=== PATIENT | female | born 1980 | race Caucasian/White ===

== ENCOUNTER 2016-10-19 19:58 | Emergency (ER) | payer MEDICARE, OTHER ==
[~2016-10-19] VITALS: Ht 175.3 cm; Wt 145.0 kg
[2016-10-19 20:00] VITALS: Ht 175.3 cm; Wt 145.0 kg
[2016-10-19 20:47] LABS: URINE BLOOD (Dip) POC Trace-intact (NEGATIVE)
[2016-10-19] MEDS ORDERED: DIAZEPAM 5 MG TAB PO ONE (21:30)
[2016-10-19] MEDS ORDERED: ACETAMINOPHEN 325 MG TAB PO ONE (21:30)
[2016-10-19 21:43] LABS: ADD SCAN DIFF NO
[2016-10-19 21:46] LABS: BASOPHILS % 0.6 % (0.0-2.0); EOSINOPHILS # 0.2 10^3/ul (0.0-0.5); EOSINOPHILS % 2.4 % (0.0-7.0); HEMATOCRIT 43.2 % (37.0-47.0); HEMOGLOBIN 14.1 g/dl (12.0-16.0); LYMPHOCYTES # 2.9 10^3/ul (0.8-2.9); LYMPHOCYTES % 42.4 % (15.0-51.0); MEAN CORPUSCULAR HGB CONC 32.6 g/dl (32.0-37.0); MEAN CORPUSCULAR VOLUME 94.9 fl (82.0-101.0); MEAN PLATELET VOLUME 10.7 fl (7.4-10.4); MONOCYTE # 0.6 10^3/ul (0.3-0.9); MONOCYTES % 8.6 % (0.0-11.0); NEUTROPHIL # 3.1 10^3/ul (1.6-7.5); NEUTROPHILS % 45.7 % (39.0-77.0); PLATELET COUNT 253 10^3/UL (140-415); RED BLOOD COUNT 4.55 10^6/ul (4.20-5.40); RED CELL DISTRIBUTION WIDTH 13.2 % (11.5-14.5); WHITE BLOOD COUNT 6.7 10^3/ul (4.8-10.8)
[2016-10-19] MEDS ORDERED: KETOROLAC 15 MG INJ IV STA (23:00)
--- NOTE | 2016-10-19 23:00 | ERD ---
ER Documentation Chief Complaint Date/Time DATE: 10/19/16 TIME: 22:47 Chief Complaint lower back pain sp fall today, also difuse lower abdominal pain for 2 days HPI This 35-year-old female reports mechanical slip and fall at home without loss of consciousness. Patient states she landed on her tailbone and has had excruciating pain in her low back ever since. Patient states pain is 10 out of 10 on pain scale, reports no position of comfort, and has difficulty lying supine, sitting, standing, and walking. Patient currently is side lying on gurney for assessment. Patient denies any numbness or tingling radiating down her leg, denies any alteration in bowel or bladder. States she took a Motrin prior to arrival in emergency department with little relief of symptoms. Patient has secondary complaint of low abdominal pain, pain is described as sharp, no pelvic, history of diverticulitis. Patient follows a low residue diet , states she does not eat rice or tomatoes. Reports hysterectomy in 2016 for cervical cancer. Denies any hematuria, blood in stool, constipation, diarrhea, nausea vomiting fever or chills. ROS All systems reviewed and are negative except as per history of present illness. Allergies Allergies: Coded Allergies: aspirin (Verified Allergy, Unknown, 10/19/16) divalproex sodium (Verified Allergy, Unknown, 10/19/16) PMhx/Soc History of Surgery: Yes (hysterectomy) Anesthesia Reaction: No Hx Neurological Disorder: No Hx Respiratory Disorders: No Hx Cardiac Disorders: No Hx Psychiatric Problems: No Hx Miscellaneous Medical Probl: Yes (diverticulitis) Hx Alcohol Use: No Hx Substance Use: No Hx Tobacco Use: No Smoking Status: Never smoker Physical Exam Vitals Vital Signs Date Time Temp Pulse Resp B/P Pulse Ox O2 Delivery O2 Flow Rate FiO2 10/19/16 20:00 97.8 120 18 142/68 96 Vitals stable, triage notes reviewed Physical Exam Const: Morbidly obese female, obvious discomfort. No acute distress Head: Atraumatic Eyes: Normal Conjunctiva, PERRLA, EOMI ENT: Neck: Full range of motion. Resp: Chest rises and falls symmetrically, clear to auscultation bilaterally, no respiratory distress Cardio: Abd: Soft, obese, no pelvic tenderness, no CVA tenderness Skin: Back: No midline or flank tenderness, straight leg raise is positive bilaterally at 20 Ext: Neur: Awake and alert Psych: Normal Mood and Affect Result Diagram: 10/19/162104 Results 24 hrs Laboratory Tests Test 10/19/16 20:50 10/19/16 21:05 Bedside Urine pH (LAB) 6.5 Bedside Urine Protein (LAB) Negative Bedside Urine Glucose (UA) Negative Bedside Urine Ketones (LAB) Negative Bedside Urine Blood Trace-intact Bedside Urine Nitrite (LAB) Negative Bedside Urine Leukocyte Esterase (L Negative White Blood Count 6.710^3/ul Red Blood Count 4.5510^6/ul Hemoglobin 14.1g/dl Hematocrit 43.2% Mean Corpuscular Volume 94.9fl Mean Corpuscular Hemoglobin 31.0pg Mean Corpuscular Hemoglobin Concent 32.6g/dl Red Cell Distribution Width 13.2% Platelet Count 88049^3/UL Mean Platelet Volume 10.7fl Neutrophils % 45.7% Lymphocytes % 42.4% Monocytes % 8.6% Eosinophils % 2.4% Basophils % 0.6% Nucleated Red Blood Cells % 0.0/100WBC Neutrophils # 3.110^3/ul Lymphocytes # 2.910^3/ul Monocytes # 0.610^3/ul Eosinophils # 0.210^3/ul Basophils # 0.010^3/ul Nucleated Red Blood Cells # 0.010^3/ul Current Medications Medications (Trade) Dose Ordered Sig/Lupe Route PRN Reason Start Time Stop Time Status Last Admin Dose Admin Diazepam (Valium) 5 mg ONCE ONCE PO 10/19/16 21:30 10/19/16 21:31 DC 10/19/16 21:19 Acetaminophen (Tylenol Tab) 650 mg ONCE ONCE PO 10/19/16 21:30 10/19/16 21:31 DC 10/19/16 21:19 Ketorolac Tromethamine (Toradol) 15 mg ONCE STAT IV 10/19/16 23:00 10/19/16 23:01 DC 10/19/16 23:07 Interpretation text CBC negative for acute infection or hemorrhage Urinalysis negative for leukocytosis or nitrates, positive for trace microscopic hematuria, this is a normal urinalysis Procedures/MDM This pleasant 35-year-old female presents to emergency department today for evaluation of back pain, tailbone pain, after mechanical trip and fall today. Patient experienced no loss of consciousness fell onto tailbone. Denies any alteration in ambulation or bowel or bladder, cauda equina is not suspected. Coccyx fracture, or bruising suspected. X-ray obtained to rule out compression fracture., Lumbar spine x-ray with the following findings; the lumbar vertebral bodies and disc spaces have normal height and anatomic alignment. No evidence of fracture or subluxation seen. There is a small anterior osteophyte at L1-2 and L3-4. No significant spondylolithiasis is seen. The partially visualized sacrum is unremarkable. The sacroiliac joints are intact. Impression; unremarkable lumbar spine. Abdominal pain with history of diverticulitis evaluated with CBC unremarkable for leukocytosis evidence of acute hemorrhage or infection. Urinalysis to rule out urinary tract infection, patient's back pain treated with 5 mg of Valium, 650 mg of Tylenol with little change in symptoms. Patient has a aspirin allergy reports vomiting, has taken nonsteroidal anti-inflammatory medication in the past without incident. 15 mg IV Toradol given. Patient reassessed after 20 minutes with mild improvement of symptoms. Patient discharged home with NapconnorynBreeium, I feel the patient is stable for discharge at this time and outpatient management by primary care physician. I have discussed results, examination findings, the treatment plan with the patient and family present prior to discharge. Indications for emergent reevaluation, side effects of medication were also discussed. All questions were answered. Patient verbalizes understanding and agrees with plan of care. Departure Diagnosis: Primary Impression: Back pain Back pain location: low back pain Chronicity: acute Back pain laterality: bilateral Sciatica presence: without sciatica Qualified Code: M54.5 - Acute bilateral low back pain without sciatica Additional Impressions: Coccyx contusion Encounter type: initial encounter Qualified Code: S30.0XXA - Coccyx contusion, initial encounter Abdominal pain Abdominal location: lower abdomen, unspecified Qualified Code: R10.30 - Lower abdominal pain Condition: Good Patient Instructions: Abdominal Pain, Back Pain (Acute Or Chronic), Contusion, Coccyx/Sacrum Additional Instructions: Thank you for for coming to [facility] for your care today. Please ask your nurse or provider if you have questions about your care today and do not leave until all your questions have been answered. Please use any medications given as directed and follow-up with your doctor (or the doctor you were referred to) in the next 2-3 days. If you do not have a primary care doctor you may follow up at the [facility] (listed below). You may also use motrin and tylenol as needed for fever and/or pain unless instructed otherwise by your provider or nurse. Indications for more urgent follow-up have been discussed, but you may return to the Emergency Department at ANY time for any worrisome or worsening symptoms. If you have abdominal pain, please know that no test or exam you received is perfect and you should follow up within 8 hours for continued pain. If you had any imaging studies today, such as an X-Ray or CT Scan, these studies will be reviewed later by a radiologist. You will be called if there are important findings that were not identified today, so make sure the contact information you provided at registration is correct. If you received any narcotic pain control medicine today, such as Vicodin, Morphine or Dilaudid, your coordination and judgment may be affected for a number of hours. Please do not drive or operate heavy machinery, and you may want someone to assist you at home. If you were given a prescription for narcotic medication, be aware that it is very addictive- use sparingly and only if necessary. CYNDY GIBBONS October 19, 2016 22:59
--- NOTE | 2016-10-19 23:19 | RADRPT ---
PROCEDURE: LUMBAR SPINE - 2 VIEWS CLINICAL INDICATION: 35-year-old female with back pain following trauma. TECHNIQUE: AP and lateral views of the lumbar spine were obtained. The images were reviewed on a [employer] workstation. COMPARISON: None. FINDINGS: The lumbar vertebral bodies and disk spaces have normal heights and anatomic alignment. No evidence of fracture or subluxation is seen. There are small anterior osteophytes at L1-2 and L3-4. No signif icant spondylolisthesis is seen. The partially visualized sacrum is unremarkable. The sacroiliac inna nts are intact. IMPRESSION: Unremarkable lumbar spine radiographs. .Guzman Montana MD, MD Date Time Electronically viewed and signed by .Guzman Montana MD, on 10/19/2016 23:19 .[place]/
[2016-10-19] MEDS ORDERED: DIAZ-90 PO (23:51)
[2016-10-19] MEDS ORDERED: NAPR-260 PO (23:51)
[2016-10-20 00:29] VITALS: BP 123/64; PULSE 100; RESP 16
== END 2016-10-20 00:29 | disposition home or self-care (01) ==
LOC: FTE 19:58
DX: S30.0XXA Contusion of lower back and pelvis, initial encounter (principal); R10.30 Lower abdominal pain, unspecified; W18.39XA Other fall on same level, initial encounter; Y92.009 Unspecified place in unspecified non-institutional (private) residence as the place of occurrence of the external cause
CPT/HCPCS: 72100; 81003; 85025; J1885; 36415; 96374

== ENCOUNTER 2016-11-07 12:14 | Emergency (ER) | payer MEDICARE, OTHER ==
[~2016-11-07] VITALS: Ht 175.3 cm; Wt 150.0 kg
[~2016-11-07 12:14] MED LIST: DIAZ-90 PO; NAPR-260 PO
[2016-11-07 12:16] VITALS: Ht 175.3 cm; Wt 150.0 kg
--- NOTE | 2016-11-07 12:40 | ERD ---
ER Documentation Chief Complaint Date/Time DATE: 11/07/16 TIME: 12:39 Chief Complaint back pain x 2 weeks and bilateral feet swelling HPI 35-year-old female who presented emergency department for lower back pain for 2 weeks and bilateral feet swelling. Stated that she was here 3 weeks ago due to mechanical fall, landed on her "tailbone," was seen here in the emergency department, x-ray was done with negative results. Also complains of urinary frequency for 3 days. Her lower back pain was described as sharp that radiates to her bilateral lower extremity. Has bilateral lower extremity swelling for 2 days but stated that swelling has tremendously increased in the last 24 hours. Denies headache, loss of consciousness, dizziness, blurry vision, changes in vision, photophobia, facial pain, ear pain, throat pain, difficulty swallowing, neck pain, shoulder pain, chest pain, cough, hemoptysis, abdominal pain, loss of appetite, nausea, vomiting, hematochezia, diarrhea, constipation, bladder and bowel incontinences, extremity weakness, extremity tenderness, numbness or tingling sensation, recent travel, recent exposure to illness, recent antibiotic use in the last 3 months, fever, chills. Allergy: Aspirin, Depakote PMH: Dissociative identity disorder, anxiety, panic attack, acute asthma, fibromyalgia. Family medical history: Unknown. Patient stated that she is adopted. A1 LMP: "I do not have periods anymore. I had a full hysterectomy but I still have my ovaries. " Medications: Seroquel, gabapentin, Benadryl. Surgery: Full hysterectomy. Primary Social History: Not working at this time. Smokes 5-6 sticks of cigarettes a day. Denies use of alcohol, use of illegal drugs. ROS All systems reviewed and are negative except as per history of present illness. Medications Home Meds Active Scripts Diazepam* (Valium*) 5 Mg Tablet, 5 MG PO Q8, #10 TAB Prov:EDWIGE,CYNDY 10/19/16 Naproxen* (Naprosyn*) 500 Mg Tablet, 500 MG PO BID Y for PAIN AND/OR INFLAMMATION for 10 Days, #20 TAB Prov:EDWIGE,CYNDY 10/19/16 Allergies Allergies: Coded Allergies: aspirin (Verified Allergy, Unknown, 11/07/16) divalproex sodium (Verified Allergy, Unknown, 11/07/16) PMhx/Soc History of Surgery: Yes (hysterectomy) Anesthesia Reaction: No Hx Neurological Disorder: No Hx Respiratory Disorders: No Hx Cardiac Disorders: No Hx Psychiatric Problems: No Hx Miscellaneous Medical Probl: Yes (diverticulitis) Hx Alcohol Use: No Hx Substance Use: No Hx Tobacco Use: No Physical Exam Vitals Vital Signs Date Time Temp Pulse Resp B/P Pulse Ox O2 Delivery O2 Flow Rate FiO2 11/07/16 12:16 98.4 127 22 177/104 98 Physical Exam CONSTITUTIONAL: Well-appearing; well-nourished; in no apparent distress. HEAD: Normocephalic; atraumatic. EYES: Conjunctiva clear, sclera non-icteric, EOM intact. PERRL Ears: Hearing intact. EACs clear, TMs non-bulging, non-inflamed, translucent & mobile, ossicles normal appearance, No obstructions, no erythema, no discharges Nose: No obstructions. No polyps. No external lesions. Mucosa non-inflamed. No external lesions, septum and turbinates normal. No rhinorrhea. No discharges. Frontal sinus is non-tender to palpation. Maxillary sinus is non-tender to palpation. MOUTH: Moist mucous membranes, no lesion, no obstructions, no vesicles, no thrush, patent airway Throat: Uvula in midline. Right tonsil is +1 with no erythema, no exudate. Left tonsil is +1 with no erythema, no exudate. Tolerating secretions well. Good gag reflex. Patent airway. Neck: Supple, without lesions, bruits, or adenopathy. No mass. Thyroid non- enlarged and non-tender to palpation. CHEST: Symmetrical chest. Respirations even and not labored. No retractions noted. CARDIOVASCULAR: Normal S1, S2. RRR. No murmurs, gallops. RESPIRATORY: Normal chest excursion with respiration; breath sounds clear and equal bilaterally; no wheezes, rhonchi, or rales. Breathing even and unlabored. Speaking in clear, full, and complete sentences w/ ease. ABDOMEN: Normal bowel sounds normal. Soft, round, non-distended, non-guarding, no tenderness, no rebound, no organomegaly, no masses, no pulsating abdominal mass. No hernia. No peritoneal signs. : Has right-sided CVA tenderness. BACK: Symmetrical shoulder. Spine is midline without deformity, tenderness. No evidence of trauma or deformity. PELVIS: Stable pelvis. No evidence of trauma or deformity. MUSCULOSKELETAL: Normal gait and station. No misalignment, asymmetry, crepitation, defects, tenderness, masses, effusions, decreased range of motion, instability, atrophy or abnormal strength or tone in the head, neck, spine, ribs , pelvis or extremities. Has positive straight leg test bilaterally. Has supraspinatus tenderness to right upper and left upper. No calf tenderness. NEUROVASCULAR: Distal pulses are present. Pedal pulse are present, equal, and normal. Capillary refills are < 2 seconds. NEUROLOGIC: Alert and oriented x4. Speaks full and clear sentences. Cranial Nerves II-XII normal. Sensation to pain, touch, and proprioception normal. Grossly unremarkable. No neurologic deficits. Romberg test is negative. PSYCHOLOGICAL: The patients mood and manner are appropriate. No hallucinations , delusions. Not SI. Not HI. Has the capacity to decide for self SKIN: Normal for age and ethnicity; warm; dry; good turgor; no apparent lesions or exudates. No rashes, hives, discoloration. Intact. Result Diagram: 11/07/16 1255 11/07/16 1255 Results 24 hrs Laboratory Tests Test 11/07/16 12:55 11/07/16 13:32 White Blood Count 4.710^3/ul Red Blood Count 4.3910^6/ul Hemoglobin 13.9g/dl Hematocrit 40.0% Mean Corpuscular Volume 91.1fl Mean Corpuscular Hemoglobin 31.7pg Mean Corpuscular Hemoglobin Concent 34.8g/dl Red Cell Distribution Width 12.6% Platelet Count 44409^3/UL Mean Platelet Volume 10.4fl Neutrophils % 44.5% Lymphocytes % 40.5% Monocytes % 10.0% Eosinophils % 3.8% Basophils % 0.8% Nucleated Red Blood Cells % 0.0/100WBC Neutrophils # 2.110^3/ul Lymphocytes # 1.910^3/ul Monocytes # 0.510^3/ul Eosinophils # 0.210^3/ul Basophils # 0.010^3/ul Nucleated Red Blood Cells # 0.010^3/ul Prothrombin Time 11.8Sec Prothrombin Time Ratio 0.9 INR International Normalized Ratio 0.87 Activated Partial Thromboplast Time 29.9Sec Sodium Level 144mmol/L Potassium Level 4.0mmol/L Chloride Level 110mmol/L Carbon Dioxide Level 23mmol/L Anion Gap 15 Blood Urea Nitrogen 13mg/dl Creatinine 0.83mg/dl Glucose Level 109mg/dl Calcium Level 9.8mg/dl Total Bilirubin 0.2mg/dl Direct Bilirubin 0.00mg/dl Indirect Bilirubin 0.2mg/dl Aspartate Amino Transf (AST/SGOT) 65IU/L Alanine Aminotransferase (ALT/SGPT) 112IU/L Alkaline Phosphatase 83IU/L Troponin I < 0.012ng/ml B-Type Natriuretic Peptide 143PG/ML Total Protein 7.4g/dl Albumin 4.7g/dl Globulin 2.70g/dl Albumin/Globulin Ratio 1.74 Amylase Level 47U/L Lipase 37U/L Urine Color LT. YELLOW Urine Clarity CLEAR Urine pH 8.0 Urine Specific [place] 1.020 Urine Ketones NEGATIVE Urine Nitrite NEGATIVE Urine Bilirubin NEGATIVE Urine Urobilinogen 0.2 E.U./dL Urine Leukocyte Esterase NEGATIVE Urine Hemoglobin NEGATIVE Urine Glucose NEGATIVE% Urine Total Protein NEGATIVE Current Medications Medications (Trade) Dose Ordered Sig/Lupe Route PRN Reason Start Time Stop Time Status Last Admin Dose Admin Ketorolac Tromethamine (Toradol) 60 mg ONCE STAT IV 11/07/16 14:07 11/07/16 14:09 DC 11/07/16 14:15 Ondansetron HCl (Zofran Inj) 4 mg ONCE STAT IV 11/07/16 14:07 11/07/16 14:10 DC 11/07/16 14:15 Morphine Sulfate (morphine) 6 mg ONCE ONCE IV 11/07/16 15:00 11/07/16 15:01 DC 11/07/16 14:59 IV Flush 10 ml 10 ml STK-MED ONCE .ROUTE 11/07/16 15:38 11/07/16 15:43 DC 11/07/16 16:02 Sodium Chloride (NS) 100 ml @ ud STK-MED ONCE .ROUTE 11/07/16 15:38 11/07/16 15:43 DC 11/07/16 16:02 Iohexol (Omnipaque 300mg/ ml) 150 ml STK-MED ONCE .ROUTE 11/07/16 15:38 11/07/16 15:43 DC 11/07/16 16:03 Procedures/MDM Examination: Please see physical examination. Disease process, medical treatment was explained to the patient and family member. They verbalized understanding and agreed with the diagnostic tests, medical treatment, and follow-up care. EKG: Normal sinus rhythm with a ventricular rate of 87 bpm. No evidence of acute myocardial infarction. Radiology: CT of the abdomen and pelvis Impression: No mass, lymphadenopathy, or focal acute inflammatory process is identified. No urolithiasis. No hydronephrosis. Marked hepatomegaly with severe fatty infiltration. Mild sigmoid diverticulosis without evidence of acute diverticulitis. Normal appendix. Blood works: Reviewed. POC urine : Negative. Urinalysis: Reviewed. Treatment: IV insertion. Toradol IV. Morphine IV. Zofran IV. Re-evaluation: Denies headache, dizziness, blurry vision, neck pain, shoulder pain, chest pain, back pain, abdominal pain, nausea. No episode of emesis in the emergency department. There is no right upper/right lower/epigastric/left upper/left lower abdominal tenderness likely palpation. No peritoneal signs, loss of bowel and bowel control. No CVA tenderness. No neurovascular deficit. No neurological deficits. Cranial nerves II through XII are intact. Consultation: Case was discussed with attending physician Dr. Jitendra Sawyer who agreed in my medical decision making discharge the patient and have her follow- up with her primary care physician, prescribed. Pain medication for pain control. Differential diagnosis: Abdominal aortic aneurysm versus acute myocardial infarction versus acute coronary syndrome versus appendicitis versus nephrolithiasis versus fracture versus dislocation versus contusion versus sprain versus sciatica Medical decision makin-year-old female who presented emergency department for lower back pain for 2 weeks and bilateral feet swelling. Stated that she was here 3 weeks ago due to mechanical fall, landed on her "tailbone," was seen here in the emergency department, x-ray was done with negative results. Also complains of urinary frequency for 3 days. Her lower back pain was described as sharp that radiates to her bilateral lower extremity. Has bilateral lower extremity swelling for 2 days but stated that swelling has tremendously increased in the last 24 hours. Patient's complaint, patient history about her complaint, my physical findings, diagnostic test results, my reevaluation are consistent with my final diagnosis of diverticulosis without evidence of acute diverticulitis, hepatomegaly, low back pain, sciatica. Medications prescribed are the following: [place]. Flexeril. Zofran. Patient and family member are made aware of the side effects and adverse reactions of the medications prescribed. Instructed on when to seek emergent and medical attention in case allergic/anaphylactic reactions or severe side effects and or adverse reactions to medications. Patient and family member verbalized understanding. Patient instructed Instructed to follow-up with his PCP in 24-48 hours. Stated she will make sure to follow-up with her primary care physician in the next 24-48 hours. Instructed to Call 911 for chest pain, shortness of breath. Advised to come back here in ED as soon as possible for severity of symptoms which includes but not limited to: any new symptoms; shortness of breath/difficulty of breathing; cardiovascular changes; severe gastrointestinal symptoms; signs and symptoms of bleeding and or infection; signs of compartment syndrome/neurovascular changes; neurological changes/deficits. Patient and family member verbalized understanding. Upon discharge, patient is alert and oriented x 4, speaks full and clear sentences, denies pain, has no neurological deficits, has no neurovascular deficits, difficulty of breathing. Breathing even and unlabored. Lung sounds are clear to auscultation. Not in distress. Appears comfortable. Ambulatory with steady gait. Appears satisfied with care provided here in ED. Departure Diagnosis: Primary Impression: Diverticulosis Additional Impressions: Sciatica Back pain Hepatomegaly Condition: Good Additional Instructions: Instructed to follow-up with his PCP in 24-48 hours. Stated she will make sure to follow-up with her primary care physician in the next 24-48 hours. Instructed to Call 911 for chest pain, shortness of breath. Advised to come back here in ED as soon as possible for severity of symptoms which includes but not limited to: any new symptoms; shortness of breath/difficulty of breathing; cardiovascular changes; severe gastrointestinal symptoms; signs and symptoms of bleeding and or infection; signs of compartment syndrome/neurovascular changes; neurological changes/deficits. Patient and family member verbalized understanding. SOFIE CA Nov 07, 2016 12:40
[2016-11-07 13:03] LABS: ADD SCAN DIFF NO
[2016-11-07 13:07] LABS: BASOPHILS % 0.8 % (0.0-2.0); EOSINOPHILS # 0.2 10^3/ul (0.0-0.5); EOSINOPHILS % 3.8 % (0.0-7.0); HEMOGLOBIN 13.9 g/dl (12.0-16.0); LYMPHOCYTES # 1.9 10^3/ul (0.8-2.9); LYMPHOCYTES % 40.5 % (15.0-51.0); MEAN CORPUSCULAR HEMOGLOBIN 31.7 pg (29.0-33.0); MEAN CORPUSCULAR HGB CONC 34.8 g/dl (32.0-37.0); MEAN CORPUSCULAR VOLUME 91.1 fl (82.0-101.0); MEAN PLATELET VOLUME 10.4 fl (7.4-10.4); MONOCYTE # 0.5 10^3/ul (0.3-0.9); NEUTROPHIL # 2.1 10^3/ul (1.6-7.5); NEUTROPHILS % 44.5 % (39.0-77.0); PLATELET COUNT 213 10^3/UL (140-415); RED BLOOD COUNT 4.39 10^6/ul (4.20-5.40); RED CELL DISTRIBUTION WIDTH 12.6 % (11.5-14.5); WHITE BLOOD COUNT 4.7 10^3/ul (4.8-10.8)
[2016-11-07 13:21] LABS: AMYLASE 47 U/L (11-123); INR 0.87; PROTIME 11.8 Sec (12.2-14.2); PT RATIO 0.9
[2016-11-07 13:22] LABS: PARTIAL THROMBOPLASTIN TIME 29.9 Sec (25.0-35.0)
[2016-11-07 13:34] LABS: B-TYPE NATRIURETIC PEPTIDE 143 PG/ML (0-125)
[2016-11-07 13:38] LABS: TROPONIN-I < 0.012 ng/ml (0.00-0.12)
[2016-11-07] MEDS ORDERED: ONDANSETRON 4 MG INJ IV STA (14:07)
[2016-11-07] MEDS ORDERED: KETOROLAC 60 MG INJ IV STA (14:07)
[2016-11-07 14:35] LABS: ADD UMIC NO; UR BILIRUBIN (Dip) NEGATIVE (NEGATIVE); UR BLOOD (Dip) NEGATIVE (NEGATIVE); UR CLARITY CLEAR (CLEAR); UR COLOR LT. YELLOW (YELLOW); UR GLUCOSE (Dip) NEGATIVE (NEGATIVE); UR KETONES (Dip) NEGATIVE (NEGATIVE); UR LEUKOCYTE ESTERASE (Dip) NEGATIVE (NEGATIVE); UR NITRITE (Dip) NEGATIVE (NEGATIVE); UR TOTAL PROTEIN (Dip) NEGATIVE (NEGATIVE); UR UROBILINOGEN (Dip) 0.2 E.U./dL (0.1-1.0)
[2016-11-07] MEDS ORDERED: morphine 10 MG INJ IV ONE (15:00)
[2016-11-07 15:08] LABS: ALBUMIN 4.7 g/dl (3.3-4.9); ALBUMIN/GLOBULIN RATIO 1.74; BILIRUBIN,INDIRECT 0.2 mg/dl (0-1.1); BILIRUBIN,TOTAL 0.2 mg/dl (0.2-1.3); CALCIUM 9.8 mg/dl (8.4-10.2); CREATININE 0.83 mg/dl (0.44-1.00); TOTAL PROTEIN 7.4 g/dl (6.1-8.1)
[2016-11-07] MEDS ORDERED: IOHEXOL 300MG/ML 150 ML BTL ONE (15:38)
[2016-11-07] MEDS ORDERED: SOD CHLORIDE 0.9% 100 ML ONE (15:38)
--- NOTE | 2016-11-07 16:11 | RADRPT ---
PROCEDURE: CT Abdomen and Pelvis with contrast. CLINICAL INDICATION: Right flank and back pain. TECHNIQUE: CT scan of the abdomen and pelvis with contrast was performed on a multi-detector high- resolution CT scanner. The patient was scanned following the uncomplicated intravenous administrati on of 100 cc of Omnipaque 300. Coronal and sagittal reformatted images were obtained from the axial source images. Images were reviewed on a high-resolution PACS workstation. The total exam CTDI equa ls 23.79 mGy and the total exam DLP equals 1638.67 mGy-cm. One or more of the following dose reduction techniques were used: Automated exposure control. Adjustment of the mA and/or kV according to patient size. Use of iterative reconstruction technique. COMPARISON: None. FINDINGS: CT abdomen: The lung bases are clear. The heart size is normal, without pericardial thickening or effusion. Th ere is marked hepatomegaly with severe fatty infiltration. The craniocaudal length of the liver shailesh sures up to 25 cm. The spleen is normal in size and homogeneous in density. The stomach is partial ly collapsed, but is grossly unremarkable. The pancreas as visualized is normal. The gallbladder u nremarkable. There is no evidence for biliary dilatation. The adrenal glands are symmetric and nor mal. The kidneys are symmetrically unremarkable as well. No renal calculus or obstructive uropathy or mass lesion is seen. The aorta is of normal caliber. There is no retroperitoneal lymphadenopathy. The issa hepatis andre on is clear. The bowel and mesentery, as visualized, are equally unremarkable. There is a small hia morales hernia. CT pelvis: The small bowel loops situated within the pelvis are unremarkable. The uterus is absent. The pelvic sidewalls and inguinal regions are clear. The sigmoid colon and rectum are remarkable for mild sig moid diverticulosis. No mass, lymphadenopathy, or free fluid is seen. No acute inflammation is see n. The bladder is normal. The surrounding osseous structures are unremarkable. No osteolytic or os teoblastic lesion is detected. IMPRESSION: 1. No mass, lymphadenopathy, or focal acute inflammatory process is identified. 2. No urolithiasis. No hydronephrosis. 3. Marked hepatomegaly with severe fatty infiltration. 4. Mild sigmoid diverticulosis without evidence of acute diverticulitis. 5. Normal appendix. RPTAT: BB .Senthil Gray MD, MD Date Time Electronically viewed and signed by .Senthil Gray MD, MD on 11/07/2016 16:11 .O/
[2016-11-07] MEDS ORDERED: HYDR-902 PO (16:44)
[2016-11-07] MEDS ORDERED: CYCL-319 PO (16:44)
[2016-11-07] MEDS ORDERED: ONDA4TAB14 PO (16:44)
[2016-11-07] MEDS ORDERED: DOCU-144 PO (16:45)
== END 2016-11-07 17:08 | disposition home or self-care (01) ==
LOC: FTE 12:14
DX: K57.30 Diverticulosis of large intestine without perforation or abscess without bleeding (principal); R16.0 Hepatomegaly, not elsewhere classified; F17.210 Nicotine dependence, cigarettes, uncomplicated; M54.41 Lumbago with sciatica, right side; M54.42 Lumbago with sciatica, left side; J45.909 Unspecified asthma, uncomplicated; R10.9 Unspecified abdominal pain
CPT/HCPCS: 74177; 80053; 81003; 82150; 83690; 83880; 84484; 85025; 85610; 85730; J1885; J2270; J2405; Q9967; 93005; 96374; 96375

== ENCOUNTER 2016-11-15 21:19 | Emergency (ER) | payer MEDICARE, OTHER ==
[~2016-11-15] VITALS: Ht 177.8 cm; Wt 152.0 kg
[~2016-11-15 21:19] MED LIST changes: +CYCL-319 PO; +DOCU-144 PO; +HYDR-902 PO; +ONDA4TAB14 PO
[2016-11-15 21:25] VITALS: Ht 177.8 cm; Wt 152.0 kg
[2016-11-15 21:46] LABS: URINE BLOOD (Dip) POC Negative (NEGATIVE)
[2016-11-15] MEDS ORDERED: SOD CHLORIDE 0.9% 1,000 ML IV STA (22:57)
[2016-11-15] MEDS ORDERED: morphine 2 MG INJ IV STA (22:57)
[2016-11-15] MEDS ORDERED: ONDANSETRON 4 MG INJ IV STA (22:57)
[2016-11-15 23:36] LABS: ADD SCAN DIFF NO
[2016-11-15 23:39] LABS: BASOPHILS % 0.5 % (0.0-2.0); EOSINOPHILS # 0.2 10^3/ul (0.0-0.5); EOSINOPHILS % 3.1 % (0.0-7.0); HEMATOCRIT 39.2 % (37.0-47.0); LYMPHOCYTES # 2.3 10^3/ul (0.8-2.9); LYMPHOCYTES % 39.1 % (15.0-51.0); MEAN CORPUSCULAR HGB CONC 33.2 g/dl (32.0-37.0); MEAN CORPUSCULAR VOLUME 93.3 fl (82.0-101.0); MEAN PLATELET VOLUME 10.3 fl (7.4-10.4); MONOCYTE # 0.6 10^3/ul (0.3-0.9); MONOCYTES % 10.3 % (0.0-11.0); NEUTROPHIL # 2.7 10^3/ul (1.6-7.5); NEUTROPHILS % 46.7 % (39.0-77.0); PLATELET COUNT 228 10^3/UL (140-415); RED CELL DISTRIBUTION WIDTH 13.1 % (11.5-14.5); WHITE BLOOD COUNT 5.8 10^3/ul (4.8-10.8)
[2016-11-15 23:50] LABS: ADD UMIC NO; UR ASCORBIC ACID NEGATIVE (NEGATIVE); UR BILIRUBIN (Dip) NEGATIVE (NEGATIVE); UR BLOOD (Dip) NEGATIVE (NEGATIVE); UR CLARITY CLEAR (CLEAR); UR COLOR STRAW (YELLOW); UR GLUCOSE (Dip) NEGATIVE (NEGATIVE); UR KETONES (Dip) NEGATIVE (NEGATIVE); UR LEUKOCYTE ESTERASE (Dip) NEGATIVE Leu/ul (NEGATIVE); UR NITRITE (Dip) NEGATIVE (NEGATIVE); UR SPECIFIC GRAVITY (Dip) 1.006 (1.003-1.030); UR TOTAL PROTEIN (Dip) NEGATIVE (NEGATIVE); UR UROBILINOGEN (Dip) NEGATIVE (NEGATIVE)
[2016-11-16] LABS: ALBUMIN 4.5 g/dl (3.3-4.9); ALBUMIN/GLOBULIN RATIO 1.66; BILIRUBIN,INDIRECT 0.3 mg/dl (0-1.1); BILIRUBIN,TOTAL 0.3 mg/dl (0.2-1.3); CALCIUM 9.3 mg/dl (8.4-10.2); CREATININE 0.89 mg/dl (0.44-1.00); POTASSIUM 3.7 mmol/L (3.5-5.1); TOTAL PROTEIN 7.2 g/dl (6.1-8.1)
--- NOTE | 2016-11-16 00:22 | RADRPT ---
PROCEDURE: CT ABDOMEN/PELVIS WITHOUT CONTRAST CLINICAL INDICATION: 35-year-old female with abdominal and rectal pain. TECHNIQUE: The study was performed utilizing a [employer] VCT 64-slice CT scanner. Direct axia l sections were obtained through the abdomen and pelvis without the use of intravenous contrast mate rial. Sagittal and coronal reformations were obtained. One or more of the following dose reduction t echniques were utilized: automated exposure control, adjustment of the mA and/or kV according to pat ient's size or use of iterative reconstruction technique. The images were reviewed on a PACS workst [employer]. CTD/vol = 28.9 mGy; Total Exam DLP = 1866.9 mGy-cm. COMPARISON: CT abdomen/pelvis November 07, 2016. FINDINGS: There is trace bibasilar subsegmental atelectasis. There is no evidence for significant pleural eff usion. The liver has a normal contour but appears to be enlarged having a maximal dimension of 31.7 cm. There is diffuse decreased density throughout the liver consistent with fatty infiltration but without focal areas of abnormal density. No intrahepatic nor extrahepatic biliary ductal dilatation is seen. The gallbladder demonstrates no wall thickening nor pericholecystic fluid. No biliary ston es are evident. The pancreas is without areas of abnormal attenuation. The spleen is identified and has a normal size without abnormal density. The adrenal glands are unremarkable. The kidneys are wi thout abnormal density. No hydroureteronephrosis nor nephroureterolithiasis is evident. The urinary bladder contains urine. There is a minimal hiatal hernia. There is [id number] retained stool throughout the colon consistent with constipation without gross bowel obstruction. There are a few small diverticula within the descending and sigmoid colon without surrounding inflammatory changes. The appendix is visualized and is without abnormal thickening or surrounding inflammatory reaction. The uterus is not visualized consistent with prior hysterectomy. There is no significant free fluid . The aortoiliac vessels are without aneurysmal dilatation. The osseous structures are intact. IMPRESSION: 1. Hepatomegaly with diffuse fatty infiltration. 2. Minimal hiatal hernia. 3. Retained stool throughout the colon consistent with constipation without gross bowel obstruction . 4. No CT evidence for appendicitis. 5. Mild descending and sigmoid colon diverticulosis. 6. Status post hysterectomy. .Guzman Montana MD, MD Date Time Electronically viewed and signed by .Guzman Montana MD, on 11/16/2016 00:22 .M/
[2016-11-16] MEDS ORDERED: KETOROLAC 30 MG INJ IV STA (01:14)
[2016-11-16] MEDS ORDERED: BISA10SU55 RC (01:20)
[2016-11-16] MEDS ORDERED: NAPR-688 PO (01:20)
[2016-11-16] MEDS ORDERED: MAGN296S40 PO (01:20)
[2016-11-16] MEDS ORDERED: POLY17PO6 PO (01:20)
[2016-11-16 01:35] VITALS: BP 118/79; PULSE 78; RESP 18
--- NOTE | 2016-11-16 02:16 | ERD ---
ER Documentation Chief Complaint Date/Time DATE: 11/16/16 TIME: 02:12 Chief Complaint rectal bleeding w/ rectal pain x 1 day HPI This 35-year-old female presents after an episode of rectal bleeding. She is a coming by her parents. Reportedly because of her obesity she had to be helped out of her car. She also has rectal and abdominal pain. Abdominal pain is diffuse and described as dull. She is also had nausea on and off without vomiting. She has had chills at home. She has a history of urinary tract infections, morbid obesity. ROS All systems reviewed and are negative except as per history of present illness. Medications Home Meds Active Scripts Bisacodyl (Dulcolax) 10 Mg Supp.rect, 10 MG RC Q6, #90 SUPP.RECT Prov:BRIJESH GARCIA 11/16/16 Magnesium Citrate* (Magnesium Citrate*) 296 Ml Solution, 296 ML PO ONCE, #1 BOTTLE Prov:JOSEBRIJESH 11/16/16 Polyethylene Glycol* (Miralax*) 17 Gm Powd.pack, 17 GM PO DAILY, #7 Prov:JOSEBRIJESH 11/16/16 Naproxen* (Naproxen*) 500 Mg Tablet, 500 MG PO BID Y for PAIN, #20 TAB Prov:JOSEBRIJESH 11/16/16 Docusate Sodium* (Colace*) 100 Mg Capsule, 100 MG PO DAILY Y for constipation, # 30 CAP Prov:SOFIE CA 11/07/16 Cyclobenzaprine Hcl* (Cyclobenzaprine Hcl*) 10 Mg Tablet, 10 MG PO Q12 Y for MUSCLE SPASMS, #15 TAB Prov:SOFIE CA 11/07/16 Ondansetron (Ondansetron Odt) 4 Mg Tab.rapdis, 4 MG PO Q8 Y for NAUSEA AND/OR VOMITING, #10 TAB Prov:SOFIE CA 11/07/16 Hydrocodone/Acetaminophen ([place] 10-325 Tablet) 1 Each Tablet, 1 TAB PO Q6H Y for PAIN, #15 TAB Prov:SOFIE CA 11/07/16 Diazepam* (Valium*) 5 Mg Tablet, 5 MG PO Q8, #10 TAB Prov:EDWIGE,CYNDY 10/19/16 Naproxen* (Naprosyn*) 500 Mg Tablet, 500 MG PO BID Y for PAIN AND/OR INFLAMMATION for 10 Days, #20 TAB Prov:CYNDY GIBBONS 10/19/16 Allergies Allergies: Coded Allergies: aspirin (Verified Allergy, Unknown, 11/07/16) divalproex sodium (Verified Allergy, Unknown, 11/07/16) PMhx/Soc History of Surgery: Yes (hysterectomy) Anesthesia Reaction: No Hx Neurological Disorder: No Hx Respiratory Disorders: No Hx Cardiac Disorders: No Hx Psychiatric Problems: No Hx Miscellaneous Medical Probl: Yes (diverticulitis) Hx Alcohol Use: No Hx Substance Use: No Hx Tobacco Use: No Smoking Status: Never smoker Physical Exam Vitals Vital Signs Date Time Temp Pulse Resp B/P Pulse Ox O2 Delivery O2 Flow Rate FiO2 11/16/16 00:11 103 16 140/82 98 Room Air 11/15/16 21:25 100.7 111 20 167/89 98 Physical Exam Const: [] Mild distress, whimpering Head: Atraumatic Eyes: Normal Conjunctiva ENT: Normal External Ears, Nose and Mouth. Neck: Full range of motion..~ No meningismus. Resp: Clear to auscultation bilaterally Cardio: Regular rate and rhythm, no murmurs Abd: Soft, mild diffuse abdominal pain without guarding or rebound, non distended. Normal bowel sounds, rectal exam without hemorrhoids or bleeding. Skin: No petechiae or rashes Back: No midline or flank tenderness Ext: No cyanosis, or edema Neur: Awake and alert and oriented 3, no focal deficits Psych: Normal Mood and Affect Result Diagram: 11/15/16 2315 11/15/16 2315 Results 24 hrs Laboratory Tests Test 11/15/16 21:49 11/15/16 22:20 11/15/16 23:15 Bedside Urine pH (LAB) 8.5 Bedside Urine Protein (LAB) Negative Bedside Urine Glucose (UA) Negative Bedside Urine Ketones (LAB) Negative Bedside Urine Blood Negative Bedside Urine Nitrite (LAB) Negative Bedside Urine Leukocyte Esterase (L Negative Urine Color STRAW Urine Clarity CLEAR Urine pH 9.0 Urine Specific Camilla 1.006 Urine Ketones NEGATIVEmg/dL Urine Nitrite NEGATIVEmg/dL Urine Bilirubin NEGATIVEmg/dL Urine Urobilinogen NEGATIVEmg/dL Urine Leukocyte Esterase NEGATIVELeu/ul Urine Hemoglobin NEGATIVEmg/dL Urine Glucose NEGATIVEmg/dL Urine Total Protein NEGATIVEmg/dl White Blood Count 5.810^3/ul Red Blood Count 4.2010^6/ul Hemoglobin 13.0g/dl Hematocrit 39.2% Mean Corpuscular Volume 93.3fl Mean Corpuscular Hemoglobin 31.0pg Mean Corpuscular Hemoglobin Concent 33.2g/dl Red Cell Distribution Width 13.1% Platelet Count 56514^3/UL Mean Platelet Volume 10.3fl Neutrophils % 46.7% Lymphocytes % 39.1% Monocytes % 10.3% Eosinophils % 3.1% Basophils % 0.5% Nucleated Red Blood Cells % 0.0/100WBC Neutrophils # 2.710^3/ul Lymphocytes # 2.310^3/ul Monocytes # 0.610^3/ul Eosinophils # 0.210^3/ul Basophils # 0.010^3/ul Nucleated Red Blood Cells # 0.010^3/ul Sodium Level 145mmol/L Potassium Level 3.7mmol/L Chloride Level 104mmol/L Carbon Dioxide Level 28mmol/L Anion Gap 17 Blood Urea Nitrogen 13mg/dl Creatinine 0.89mg/dl Glucose Level 95mg/dl Calcium Level 9.3mg/dl Total Bilirubin 0.3mg/dl Direct Bilirubin 0.00mg/dl Indirect Bilirubin 0.3mg/dl Aspartate Amino Transf (AST/SGOT) 58IU/L Alanine Aminotransferase (ALT/SGPT) 96IU/L Alkaline Phosphatase 83IU/L Total Protein 7.2g/dl Albumin 4.5g/dl Globulin 2.70g/dl Albumin/Globulin Ratio 1.66 Lipase 45U/L Current Medications Medications (Trade) Dose Ordered Sig/Lupe Route PRN Reason Start Time Stop Time Status Last Admin Dose Admin Sodium Chloride (NS) 1,000 ml @ 1,000 mls/hr Q1H STAT IV 11/15/16 22:57 11/15/16 23:56 DC 11/15/16 23:05 Morphine Sulfate (morphine) 2 mg ONCE STAT IV 11/15/16 22:57 11/15/16 22:59 DC 11/15/16 23:05 Ondansetron HCl (Zofran Inj) 4 mg ONCE STAT IV 11/15/16 22:57 11/15/16 22:59 DC 11/15/16 23:05 Ketorolac Tromethamine (Toradol) 30 mg ONCE STAT IV 11/16/16 01:14 11/16/16 01:15 DC 11/16/16 01:24 Procedures/MDM Fatty liver and constipation in a morbidly obese female. Elevated liver enzymes are coming the fatty liver. She was initially given a liter of saline, Zofran and morphine which resolved her symptoms somewhat. No infectious processes found. Patient's urine is negative she does not have an elevated white blood cell count. Symptoms are consistent with constipation. Also gave her IV Toradol. She was feeling much better. Provided her with her labs and her CAT scan provided written instructions that she needs to lose weight as a treatment for the hepatic steatosis. Going to discharge her with naproxen, MiraLAX, magnesium citrate, Dulcolax suppositories. Primary care follow-up. Departure Diagnosis: Primary Impression: Fatty liver Additional Impressions: Morbid obesity with BMI of 45.0-49.9, adult Constipation Transaminitis Acute abdominal pain Condition: Stable Patient Instructions: Non-Alcoholic Fatty Liver Disease (NAFLD), Constipation ( Adult) Additional Instructions: Call your primary care doctor TOMORROW for an appointment during the next 1-2 days.See the doctor sooner or return here if your condition worsens before your appointment time. BRIJESH GARCIA DO Nov 16, 2016 02:16
== END 2016-11-16 01:35 | disposition home or self-care (01) ==
LOC: E/R 21:19
DX: K76.0 Fatty (change of) liver, not elsewhere classified (principal); E66.01 Morbid (severe) obesity due to excess calories; K59.00 Constipation, unspecified; R74.0 Nonspecific elevation of levels of transaminase and lactic acid dehydrogenase [LDH]; R10.84 Generalized abdominal pain; Z68.42 Body mass index [BMI] 45.0-49.9, adult
CPT/HCPCS: 36415; 74176; 80053; 81003; 83690; 85025; 96374; 96375; 99285; J1885; J2270; J2405; J7030

== ENCOUNTER 2016-11-26 11:37 | Inpatient (IN) | payer MEDICARE, OTHER ==
[~2016-11-26] VITALS: Ht 175.3 cm; Wt 136.0 kg
[~2016-11-26 11:37] MED LIST changes: +BISA10SU55 RC; +MAGN296S40 PO; +NAPR-688 PO; +POLY17PO6 PO
[2016-11-26] MEDS ORDERED: ALBUTEROL 0.083% (NEB) 2.5 MG/3 ML AMP HHN STA (11:44)
[2016-11-26] MEDS ORDERED: SOD CHLORIDE 0.9% 500 ML IV STA (11:44)
[2016-11-26] MEDS ORDERED: ALBUTEROL 0.5% (NEB) 2.5 MG/0.5 ML AMP ONE (11:46)
[2016-11-26] MEDS ORDERED: IPRATROPIUM (NEB) 0.5 MG/2.5 ML AMP ONE (11:46)
[2016-11-26] MEDS ORDERED: MAGNESIUM SULFATE 2 GM/50 ML 50 ML IVPB ONE (12:00)
[2016-11-26] MEDS ORDERED: IPRATROPIUM (NEB) 0.5 MG/2.5 ML AMP HHN ONE (12:00)
[2016-11-26] MEDS ORDERED: ONDANSETRON 4 MG INJ IV STA (12:04)
--- NOTE | 2016-11-26 12:24 | RADRPT ---
PROCEDURE: Chest x-ray CLINICAL INDICATION: Chest pain TECHNIQUE: Chest single view COMPARISON: None FINDINGS: The heart is normal in size. The pulmonary vessels are normal in caliber. There is minimal left lo wer lobe atelectasis. Lungs otherwise clear. No pneumothorax is seen. The costophrenic angles are sharp. The visualized bony thorax is unremarkable. IMPRESSION: No acute cardiopulmonary disease. Minimal left lower lobe atelectasis RPTAT: HH .Ryley Moon MD, Date Time Electronically viewed and signed by .Ryley Moon MD, on 11/26/2016 12:24 .W/
[2016-11-26] MEDS ORDERED: METHYLPREDNISOLONE 125 MG INJ IV ONE (12:30)
[2016-11-26 12:36] LABS: ADD SCAN DIFF NO
[2016-11-26 12:39] LABS: BASOPHILS % 0.4 % (0.0-2.0); EOSINOPHILS # 0.1 10^3/ul (0.0-0.5); EOSINOPHILS % 1.3 % (0.0-7.0); HEMATOCRIT 44.1 % (37.0-47.0); HEMOGLOBIN 14.6 g/dl (12.0-16.0); LYMPHOCYTES # 4.3 10^3/ul (0.8-2.9); LYMPHOCYTES % 43.1 % (15.0-51.0); MEAN CORPUSCULAR HEMOGLOBIN 30.6 pg (29.0-33.0); MEAN CORPUSCULAR HGB CONC 33.1 g/dl (32.0-37.0); MEAN CORPUSCULAR VOLUME 92.5 fl (82.0-101.0); MEAN PLATELET VOLUME 10.3 fl (7.4-10.4); MONOCYTE # 0.9 10^3/ul (0.3-0.9); MONOCYTES % 9.5 % (0.0-11.0); NEUTROPHIL # 4.4 10^3/ul (1.6-7.5); NEUTROPHILS % 44.5 % (39.0-77.0); PLATELET COUNT 280 10^3/UL (140-415); RED BLOOD COUNT 4.77 10^6/ul (4.20-5.40); RED CELL DISTRIBUTION WIDTH 12.8 % (11.5-14.5); WHITE BLOOD COUNT 9.9 10^3/ul (4.8-10.8)
[2016-11-26 12:57] LABS: ANION GAP 18 (8-16); BLOOD UREA NITROGEN 26 mg/dl (7-20); CALCIUM 9.6 mg/dl (8.4-10.2); CARBON DIOXIDE 28 mmol/L (21-31); CHLORIDE 98 mmol/L (97-110); GLUCOSE 93 mg/dl (70-220); POTASSIUM 4.1 mmol/L (3.5-5.1); SODIUM 140 mmol/L (135-144)
[2016-11-26 13:06] LABS: B-TYPE NATRIURETIC PEPTIDE 14 PG/ML (0-125)
[2016-11-26 13:21] LABS: TROPONIN-I < 0.012 ng/ml (0.00-0.12)
[2016-11-26 13:31] LABS: Allen Test ACCEPTAB; Arterial COHb 1.2 % (0.0-3.0); Arterial Fraction of Oxyhgb 97.8 % (93.0-99.0); Arterial HCO3 26.2 mmol/L (22.0-26.0); Arterial MetHb 0.3 % (0.0-1.5); Arterial Total Hemglobin 15.5 g/dl (12.0-18.0); Blood Gas IEPAP 15/5; Blood Gas PS 10; MODE MASK - BIPAP
[2016-11-26] MEDS ORDERED: morphine 4 MG/ML VIAL IV STA (13:51)
[2016-11-26] MEDS ORDERED: KETOROLAC 30 MG INJ IV STA (13:51)
[2016-11-26] MEDS ORDERED: BUSP10TA2 PO (14:28)
[2016-11-26] MEDS ORDERED: HYDR-3011 PO (14:28)
[2016-11-26] MEDS ORDERED: PANT40TA3 PO (14:29)
[2016-11-26] MEDS ORDERED: LURA60TA PO (14:29)
[2016-11-26] MEDS ORDERED: RAME8TAB10 PO (14:29)
[2016-11-26] MEDS ORDERED: QUET300T13 PO (14:29)
[2016-11-26] MEDS ORDERED: hydrALAzine 20 MG INJ IV PRN (14:30)
[2016-11-26] MEDS ORDERED: MAGNESIUM HYDROXIDE 30ML CUP PO PRN (14:30)
[2016-11-26] MEDS ORDERED: DOCUSATE SODIUM 100 MG CAP PO PRN ×2 (14:30)
[2016-11-26] MEDS ORDERED: NACL 0.9% 3 ML SYG IV SCH (14:30)
[2016-11-26] MEDS ORDERED: BISACODYL 10 MG SUPP PR PRN (14:30)
[2016-11-26] MEDS ORDERED: LORAZEPAM 2 MG INJ IV PRN (14:30)
[2016-11-26] MEDS ORDERED: ACETAMINOPHEN 325 MG TAB PO PRN ×2 (14:30)
[2016-11-26] MEDS ORDERED: ONDANSETRON 4 MG INJ IV PRN ×2 (14:30)
[2016-11-26] MEDS ORDERED: NITROGLYCERIN (SL) 0.4 MG TAB SL PRN (14:30)
[2016-11-26] MEDS ORDERED: NA PHOSPHATE/BIPHOS 133 ML ENEMA PR PRN (14:30)
[2016-11-26] MEDS ORDERED: HYDR25CA98 PO (14:32)
[2016-11-26] MEDS ORDERED: GABA-528 PO (14:32)
--- NOTE | 2016-11-26 15:37 | RADRPT ---
PROCEDURE: CT scan of the neck without contrast. CLINICAL INDICATION: Stridor TECHNIQUE: CT scan of the neck was performed on the multi-slice scanner . Contiguous axial images were obtained throughout the neck with coronal and sagittal reformatted images. No IV contrast was a dministered. The exam CTDI = 10.71 and the DLP equals 279.99 mGy-cm. One or more of the following dose reduction techniques were used: Automated exposure control. Adjustment of the mA and/or kV according to patient size. Use of iterative reconstruction technique. COMPARISON: None available FINDINGS: The oropharynx, hypopharynx, larynx, and trachea are unremarkable. No airway compromise is seen. T he mucosal space of the airway is clear. The tonsillar pillars are normal. The deep spaces of the suprahyoid neck are symmetric and normal. No mass is identified. The parotid glands, submandibular glands, and thyroid gland are all normal. Imaging obtained through the lung apices revealed no acu te abnormality. Normal size lymph nodes are seen within the typical jamel bearing stations of the n lester bilaterally. No adenopathy is detected. No mass or fluid collection or other abnormality is se en. The surrounding soft tissues and muscles are unremarkable as well. There is mild expansion of t he sella with CSF density consistent with empty sella. There is advanced multilevel cervical spondy losis with evidence of disk height loss and prominent uncovertebral spurring more evident at C3-C4, C5-C6 and C6-C7 with associated moderate to severe bilateral neural foraminal stenosis and moderate central canal stenosis. IMPRESSION: 1. No mass or lymphadenopathy in the neck. 2. No airway compromise is noted. 3. Multilevel advanced cervical spondylosis at C3-C4, C5-C6 and C6-C7 with associated moderate to s evere bilateral neural foraminal stenosis and moderate central canal stenosis. Consider C-spine MRI for further evaluation. 4. Empty sella. RPTAT: BB .Senthil Gray MD, MD Date Time Electronically viewed and signed by .Senthil Gray MD, on 11/26/2016 15:37 .O/
[2016-11-26] MEDS: SOD CHLORIDE 0.45% 1,000 ML IV SCH (15:51)
[2016-11-26] MEDS: LEVOFLOXACIN 750MG/D5W (PMX) 150 ML IVPB SCH (15:52)
--- NOTE | 2016-11-26 15:54 | RADRPT ---
PROCEDURE: Lumbar spine series CLINICAL INDICATION: Back pain. TECHNIQUE: Three views of the lumbar spine are available for review COMPARISON: None available FINDINGS: The normal lumbar lordosis is preserved. There is subtle dextroscoliosis of the lumbar spine. Alig nment is otherwise intact. No acute fracture or dislocation is seen. Vertebral body heights are well maintained. Intervertebral disk heights are well maintained. Paraspinous soft tissues are grossl y unremarkable. Of note, the distal sacrum and coccyx are not well evaluated on the lateral view. IMPRESSION: 1. Subtle dextroscoliosis of the lumbar spine. RPTAT: AA .Sujit Barrera MD, MD Date Time Electronically viewed and signed by .Sujit Barrera MD, on 11/26/2016 15:53 .B/
[2016-11-26 16:00] VITALS: TEMP 98.9
[2016-11-26] MEDS ORDERED: morphine 2 MG INJ IV ONE (16:00)
--- NOTE | 2016-11-26 16:19 | ERA ---
ER Documentation Chief Complaint Date/Time DATE: 11/26/16 TIME: 16:06 Chief Complaint SOB W/AUDIBLE WHEEZING, POSSIBLE ASTHMA, STARTED YESTERDAY GETTING WORSE HPI This 35-year-old female with a history of asthma presents with a severe asthma exacerbation in respiratory extremis. Does have chest tightness peer. She is able to speak only a couple words at the most at a time. Through this I was able to find out that her shortness of breath started yesterday and is gotten worse. Later in her course after reading treatment on BiPAP I was able to find out that she had also fallen on her tailbone 2 days ago without striking her head and has pain in her tailbone area. She has had no fever or chills ROS All systems reviewed and are negative except as per history of present illness. Medications Home Meds Reported Medications Gabapentin* (Gabapentin*) 800 Mg Tablet, 800 MG PO BID, #90 TAB 11/26/16 Hydroxyzine Pamoate* (Hydroxyzine Pamoate*) 25 Mg Capsule, 25-50 MG PO DAILY Y for ANXIETY, #30 CAP 11/26/16 Pantoprazole* (Protonix*) 40 Mg Tablet.dr, 40 MG PO DAILY, TAB 11/26/16 Ramelteon (Rozerem) 8 Mg Tablet, 8 MG PO HS, TAB 11/26/16 Quetiapine Fumarate* (Seroquel*) 300 Mg Tablet, 300 MG PO DAILY, TAB 11/26/16 Lurasidone Hcl (LATUDA) 60 Mg Tablet, 60 MG PO DAILY, #30 TAB 11/26/16 Buspirone Hcl* (Buspirone Hcl*) 10 Mg Tab, 10 MG PO BID, TAB 11/26/16 Discontinued Reported Medications Hydroxyzine Hcl* (Hydroxyzine Hcl*) 25 Mg Tablet, 25 MG PO Q8H Y for ITCHING, # 30 TAB 11/26/16 Discontinued Scripts Bisacodyl (Dulcolax) 10 Mg Supp.rect, 10 MG RC Q6, #90 SUPP.RECT Prov:BRIJESH GARCIA DO 11/16/16 Magnesium Citrate* (Magnesium Citrate*) 296 Ml Solution, 296 ML PO ONCE, #1 BOTTLE Prov:BRIJESH GARCIA DO 11/16/16 Polyethylene Glycol* (Miralax*) 17 Gm Powd.pack, 17 GM PO DAILY, #7 Prov:BRIJESH GARCIA DO 11/16/16 Naproxen* (Naproxen*) 500 Mg Tablet, 500 MG PO BID Y for PAIN, #20 TAB Prov:BRIJESH GARCIA DO 11/16/16 Docusate Sodium* (Colace*) 100 Mg Capsule, 100 MG PO DAILY Y for constipation, # 30 CAP Prov:PASILASOFIE GOMEZ 11/07/16 Cyclobenzaprine Hcl* (Cyclobenzaprine Hcl*) 10 Mg Tablet, 10 MG PO Q12 Y for MUSCLE SPASMS, #15 TAB Prov:SOFIE CA 11/07/16 Ondansetron (Ondansetron Odt) 4 Mg Tab.rapdis, 4 MG PO Q8 Y for NAUSEA AND/OR VOMITING, #10 TAB Prov:SOFIE CA 11/07/16 Hydrocodone/Acetaminophen ([place] 10-325 Tablet) 1 Each Tablet, 1 TAB PO Q6H Y for PAIN, #15 TAB Prov:SOFIE CA 11/07/16 Diazepam* (Valium*) 5 Mg Tablet, 5 MG PO Q8, #10 TAB Prov:EDWIGE,CYNDY 10/19/16 Naproxen* (Naprosyn*) 500 Mg Tablet, 500 MG PO BID Y for PAIN AND/OR INFLAMMATION for 10 Days, #20 TAB Prov:EDWIGE,CYNDY 10/19/16 Allergies Allergies: Coded Allergies: aspirin (Verified Allergy, Unknown, 11/26/16) divalproex sodium (Verified Allergy, Unknown, 11/26/16) PMhx/Soc History of Surgery: Yes (hysterectomy) Anesthesia Reaction: No Hx Neurological Disorder: No Hx Respiratory Disorders: Yes (ASTHMA) Hx Cardiac Disorders: No Hx Psychiatric Problems: No Hx Miscellaneous Medical Probl: Yes (diverticulitis) Hx Alcohol Use: No Hx Substance Use: No Hx Tobacco Use: Yes Smoking Status: Current every day smoker Physical Exam Vitals Vital Signs Date Time Temp Pulse Resp B/P Pulse Ox O2 Delivery O2 Flow Rate FiO2 11/26/16 16:00 98.9 103 21 140/87 98 Room Air 8.0 Mask 11/26/16 14:00 103 21 139/80 97 Room Air 11/26/16 12:00 Simple Mask 11/26/16 11:57 110 55 11/26/16 11:57 110 35 100 11/26/16 11:45 Nasal Cannula 4 11/26/16 11:40 98.9 113 26 156/145 90 Physical Exam Const: [] Obese female in severe distress Head: Atraumatic Eyes: Normal Conjunctiva ENT: Normal External Ears, Nose and Mouth. Neck: Full range of motion..~ No meningismus. Stridor Resp: Pronounced bilateral expiratory wheezes with decreased breath sounds throughout, tachypnea, accessory muscle use Cardio: Regular tachycardia, no murmurs Abd: Soft, non tender, non distended. Normal bowel sounds Skin: No petechiae or rashes Back: No midline or flank tenderness Ext: No cyanosis, or edema, obese Neur: Awake and alert and oriented 3, cranial nerves II through XII intact, no cerebellar deficits Psych: Normal Mood and Affect Result Diagram: 11/26/16 1220 11/26/16 1220 Results 24 hrs Laboratory Tests Test 11/26/16 12:13 11/26/16 12:20 Blood Gas Specimen Source Blood arterial Arterial Blood Date Drawn 11/26/2016 12:14:00 PM Arterial Blood pH (Temp corrected) 7.481 Arterial Blood pCO2 (Temp correct) 35.9mmhg Arterial Blood pO2 (Temp corrected) 330.6mmHG Arterial Blood HCO3 26.2mmol/L Arterial Blood Base Excess 3.0mmol/L Arterial Blood Oxygen Saturation 99.3mmHG Branden Test ACCEPTAB Arterial Blood Gas Puncture Site Right Radial Arterial Blood Carboxyhemoglobin 1.2% Arterial Blood Methemoglobin 0.3% Oxyhemoglobin Percent 97.8% Total Hemoglobin 15.5g/dl Blood Gas Temperature 37.0C Blood Gas Respiration Rate 14.0 Blood Gas Actual Respiration Rate 35 Blood Gas Modality MASK - BIPAP FiO2 50.0% Blood Gas Pressure Support 10 Blood Gas IPAP/EPAP Ratio 06/10 Blood Gas Critical Value Read Back JOSE Sharpe Blood Gas Notified Whom [facility] Blood Gas Notified Time 11/26/2016 12:19:00 PM White Blood Count 9.910^3/ul Red Blood Count 4.7710^6/ul Hemoglobin 14.6g/dl Hematocrit 44.1% Mean Corpuscular Volume 92.5fl Mean Corpuscular Hemoglobin 30.6pg Mean Corpuscular Hemoglobin Concent 33.1g/dl Red Cell Distribution Width 12.8% Platelet Count 40593^3/UL Mean Platelet Volume 10.3fl Neutrophils % 44.5% Lymphocytes % 43.1% Monocytes % 9.5% Eosinophils % 1.3% Basophils % 0.4% Nucleated Red Blood Cells % 0.0/100WBC Neutrophils # 4.410^3/ul Lymphocytes # 4.310^3/ul Monocytes # 0.910^3/ul Eosinophils # 0.110^3/ul Basophils # 0.010^3/ul Nucleated Red Blood Cells # 0.010^3/ul Sodium Level 140mmol/L Potassium Level 4.1mmol/L Chloride Level 98mmol/L Carbon Dioxide Level 28mmol/L Anion Gap 18 Blood Urea Nitrogen 26mg/dl Creatinine 1.00mg/dl Glucose Level 93mg/dl Calcium Level 9.6mg/dl Troponin I < 0.012ng/ml B-Type Natriuretic Peptide 14PG/ML Current Medications Medications (Trade) Dose Ordered Sig/Lupe Route PRN Reason Start Time Stop Time Status Last Admin Dose Admin Sodium Chloride 500 ml @ 500 mls/hr Q1H STAT IV 11/26/16 11:44 11/26/16 12:43 DC 11/26/16 11:51 Magnesium Sulfate (Magnesium Sulfate 2 Gm/50 ml) 50 ml @ 25 mls/hr ONCE ONCE IVPB 11/26/16 12:00 11/26/16 13:59 DC 11/26/16 11:51 Albuterol (Proventil 0.083% (Neb)) 15 mg ONCE STAT HHN 11/26/16 11:44 11/26/16 11:46 DC 11/26/16 11:51 Ipratropium [place] (Atrovent 0.02% (Neb)) 1.5 mg ONCE ONCE HHN 11/26/16 12:00 11/26/16 12:01 DC 11/26/16 11:51 Ondansetron HCl (Zofran Inj) 4 mg ONCE STAT IV 11/26/16 12:04 11/26/16 12:05 DC 11/26/16 12:15 Methylprednisolone Sodium Succinate (Solu-Medrol) 125 mg ONCE ONCE IV 11/26/16 12:30 11/26/16 12:31 DC 11/26/16 12:27 Morphine Sulfate (morphine) 4 mg ONCE STAT IV 11/26/16 13:51 11/26/16 13:53 DC 11/26/16 13:59 Ketorolac Tromethamine (Toradol) 30 mg ONCE STAT IV 11/26/16 13:51 11/26/16 13:54 DC 11/26/16 14:22 Ondansetron HCl (Zofran Inj) 4 mg ER BRIDGE PRN IV NAUSEA AND/OR VOMITING 11/26/16 14:30 11/26/16 14:33 DC Acetaminophen (Tylenol Tab) 650 mg ER BRIDGE PRN PO MILD PAIN/FEVER 11/26/16 14:30 11/26/16 14:33 DC IV Flush (NS 3 ml) 3 ml PER PROTOCOL IV 11/26/16 14:30 Ondansetron HCl (Zofran Inj) 4 mg Q6H PRN IV NAUSEA AND/OR VOMITING 11/26/16 14:30 Acetaminophen (Tylenol Tab) 650 mg Q6H PRN PO PAIN LEVEL 1-3 OR FEVER 11/26/16 14:30 Acetaminophen/ Hydrocodone Bitart ([place] (5/325)) 1 tab Q6H PRN PO MODERATE PAIN LEVEL 4-6 11/26/16 14:30 Morphine Sulfate (morphine) 2 mg Q4H PRN IV SEVERE PAIN LEVEL 7-10 11/26/16 14:30 Docusate Sodium (Colace) 100 mg Q12H PRN PO CONSTIPATION 11/26/16 14:30 Magnesium Hydroxide (Milk Of Mag) 30 ml DAILY PRN PO CONSTIPATION 11/26/16 14:30 Sodium Biphosphate/ Sodium Phosphate (Fleet Enema) 133 ml DAILY PRN HI CONSTIPATION 11/26/16 14:30 Pantoprazole (Protonix Tab) 40 mg DAILY@06 PO 11/27/16 06:00 Heparin Sodium (Porcine) 5000 unit 5,000 unit Q12 SC 11/26/16 21:00 Sodium Chloride (1/2 NS) 1,000 ml @ 75 mls/hr [id number] IV 11/26/16 14:24 11/26/16 15:51 Lorazepam (Ativan) 0.5 mg Q6H PRN IV ANXIETY 11/26/16 14:30 Albuterol/ Ipratropium 3 ml 3 ml Q4H RESP THERAPY HHN 11/26/16 17:00 Levofloxacin/ Dextrose (Levaquin 750 Mg/ D5W 150 ml (Pmx)) 150 ml @ 100 mls/hr DAILY IVPB 11/27/16 09:00 UNV Hydralazine HCl (Apresoline) 10 mg Q6H PRN IV ELEVATED BLOOD PRESSURE 11/26/16 14:30 Clonidine (Catapres) 0.1 mg Q6H PRN PO ELEVATED BLOOD PRESSURE 11/26/16 14:30 Nitroglycerin (Nitroglycerin (Sl Tab) 0.4 Mg) 1 tab Q5M PRN SL ANGINA 11/26/16 14:30 Bisacodyl (Dulcolax Supp) 10 mg Q6 PRN HI CONSTIPATION 11/26/16 14:30 Docusate Sodium (Colace) 100 mg DAILY PRN PO constipation 11/26/16 14:30 Polyethylene Glycol (Miralax) 17 gm DAILY PO 11/27/16 09:00 Methylprednisolone Sodium Succinate 80 mg 80 mg Q6 IV 11/26/16 18:00 Levofloxacin/ Dextrose (Levaquin 750 Mg/ D5W 150 ml (Pmx)) 150 ml @ 100 mls/hr Q24H IVPB 11/26/16 15:00 11/26/16 15:52 Morphine Sulfate (morphine) 2 mg ONCE ONCE IV 11/26/16 16:00 11/26/16 16:01 DC 11/26/16 15:57 Procedures/MDM Severe asthma exacerbation. Patient was given magnesium push as well as 15 and 1.5 albuterol and Atrovent breathing treatment through BiPAP. She is also given Solu-Medrol 125. Respiratory status did improve she was able to give a more complete history. Has tailbone contusion. Was eventually able to take off BiPAP and transition to nasal cannula. Blood gas was done after patient finished with BiPAP and she was no longer retaining CO2. Emergent measures succeeded. CT soft tissue neck was performed because of patient's significant stridor and no airway compromise is seen. Still tachycardic likely secondary to albuterol. No signs or symptoms of infection currently on the patient is a smoker I believe the patient is now appropriate for telemetry. Communicated with Dr. Patel who will be admitting the patient. Chest x-ray interpretation: I see no acute process. I see no widened mediastinum, no pulmonary edema, no infiltrate, no fractures. Lumbosacral x-ray interpretation: I see no fracture dislocation, no subluxation mild curvature of spine. CT soft tissue neck: Multilevel cervical spondylosis without any airway compromise or soft tissue swelling of the neck. EKG interpretation: Sinus tachycardia rate of 105, normal axis, normal intervals , no ST or T-wave changes concerning for acute ischemia Critical care time 44 minutes: This includes treatment of severe respiratory distress with use of noninvasive positive pressure ventilation, consideration of intubation, use of magnesium IV push, breathing treatments, multiple visits patient's bedside to reassess status, chart reviewed, discussion with patient and admitting doctor. This does not include any billable procedure Departure Diagnosis: Primary Impression: Severe asthma Additional Impression: Respiratory distress Condition: Serious BRIJESH GARCIA DO Nov 26, 2016 16:19
[2016-11-26 16:30] VITALS: BP 134/109; PULSE 97; RESP 19
[2016-11-26 16:41] VITALS: PULSE 89
[2016-11-26] MEDS: ALBUTEROL/IPRATROPIUM (NEB) 3 ML AMP HHN SCH ×2 (17:00→20:52)
[2016-11-26 17:06] LABS: ADD UMIC NO; UR ASCORBIC ACID NEGATIVE (NEGATIVE); UR BILIRUBIN (Dip) NEGATIVE (NEGATIVE); UR BLOOD (Dip) NEGATIVE (NEGATIVE); UR CLARITY CLEAR (CLEAR); UR COLOR YELLOW (YELLOW); UR GLUCOSE (Dip) NEGATIVE (NEGATIVE); UR KETONES (Dip) NEGATIVE (NEGATIVE); UR LEUKOCYTE ESTERASE (Dip) NEGATIVE Leu/ul (NEGATIVE); UR NITRITE (Dip) NEGATIVE (NEGATIVE); UR SPECIFIC GRAVITY (Dip) 1.023 (1.003-1.030); UR TOTAL PROTEIN (Dip) NEGATIVE (NEGATIVE); UR UROBILINOGEN (Dip) NEGATIVE (NEGATIVE)
[2016-11-26] MEDS: METHYLPREDNISOLONE 125 MG INJ IV SCH ×2 (18:10→23:52)
[2016-11-26 18:34] VITALS: Ht 175.3 cm; Wt 136.0 kg
[2016-11-26] MEDS: morphine 2 MG INJ IV PRN ×2 (18:49→23:52)
--- NOTE | 2016-11-26 19:22 | HP ---
Date/Time of Note Date/Time of Note DATE: 11/26/16 TIME: 19:17 Assessment/Plan VTE Prophylaxis VTE Prophylaxis Intervention: heparin Lines/Catheters IV Catheter Type (from Nrs): Saline Lock Assessment/Plan Chief Complaint/Hosp Course Assessment and plan: 35-year-old coming in with asthma exacerbation. 1. Asthma exacerbation: Patient has had 20 prior hospitalizations for asthma attack, never intubate -Duo nebs every 4 hours around the clock, Solu-Medrol every 6 hours, IV fluids. Check TSH A1c lipid panel. Duo nebs as needed as well, add antibiotics as well 2. Fibromyalgia: Due current pain medication 3. Psychiatric disorder: Ativan as needed 4. History of prior cervical cancer: Again patient had hysterectomy in the -Monitor for now 5. GI prophylaxis: PPI 6. DVT prophylaxis: Heparin subcutaneous 7. Smoking history: Counseled on cessation, add nicotine patch Problems: HPI/ROS Admit Date/Time Admit Date/Time Nov 26, 2016 at 14:12 Hx of Present Illness 35-year-old female past medical history of asthma with 20 prior asthma attack admissions, never intubated, psychiatric disorder, fibromyalgia, cervical cancer status post hysterectomy in the past who presents with shortness of breath going on for the last few days. Patient says she uses albuterol inhaler , Advair, and Singulair at home. She is a smoker but apparently quit 1 week ago. Denies any upper or lower GI bleeding, no fevers or chills, no diarrhea no constipation, no nausea vomiting. PMH/Family/Social Past Surgical History Past Surgical Hx: other (hysterectomy) Family History Significant Family History: no pertinent family hx Social History Alcohol Use: none Smoking Status: Current every day smoker Drug Use: none Exam/Review of Systems Vital Signs Vitals Vital Signs Date Time Temp Pulse Resp B/P Pulse Ox O2 Delivery O2 Flow Rate FiO2 11/26/16 16:41 89 11/26/16 16:00 98.9 21 140/87 98 Room Air 8.0 Mask 11/26/16 11:57 100 Exam Exam General: Obese female, lying in bed, no acute distress HEENT: Pupils equal round reactive to light extra ocular muscles are intact Neck: Supple Lungs: Distant breath sounds bilaterally Cardiovascular: S1-S2 heard no rubs or gallops GI: Nontender nondistended normal bowel sounds no rebound or guarding Musculoskeletal: No lower extremity edema bilaterally Neurologic: No focal deficits Labs Result Diagram: 11/26/16 1220 11/26/16 1220 Medications Medications Current Medications Ondansetron HCl (Zofran Inj) 4 mg Q6H PRN IV NAUSEA AND/OR VOMITING; Start 11/26 at 14:30 Acetaminophen (Tylenol Tab) 650 mg Q6H PRN PO PAIN LEVEL 1-3 OR FEVER; Start at 14:30 Acetaminophen/ Hydrocodone Bitart ([place] (5/325)) 1 tab Q6H PRN PO MODERATE PAIN LEVEL 4-6; Start 11/26/16 at 14:30 Morphine Sulfate (morphine) 2 mg Q4H PRN IV SEVERE PAIN LEVEL 7-10 Last administered on 11/26/16 18:49; Admin Dose 2 MG; Start 11/26/16 at 14:30 Docusate Sodium (Colace) 100 mg Q12H PRN PO CONSTIPATION; Start 11/26/16 at 14: 30 Magnesium Hydroxide (Milk Of Mag) 30 ml DAILY PRN PO CONSTIPATION; Start at 14:30 Sodium Biphosphate/ Sodium Phosphate (Fleet Enema) 133 ml DAILY PRN [place] CONSTIPATION; Start 11/26/16 at 14:30 Pantoprazole (Protonix Tab) 40 mg DAILY@06 PO ; Start 11/27/16 at 06:00 Heparin Sodium (Porcine) 5000 unit 5,000 unit Q12 SC ; Start 11/26/16 at 21:00 Sodium Chloride (1/2 NS) 1,000 ml @ 75 mls/hr [id number] IV Last administered on 11/26/16 15:51; Admin Dose 75 MLS/HR; Start 11/26/16 at 14:24 Lorazepam (Ativan) 0.5 mg Q6H PRN IV ANXIETY; Start 11/26/16 at 14:30 Hydralazine HCl (Apresoline) 10 mg Q6H PRN IV ELEVATED BLOOD PRESSURE; Start at 14:30 Clonidine (Catapres) 0.1 mg Q6H PRN PO ELEVATED BLOOD PRESSURE; Start 11/26/16 at 14:30 Nitroglycerin (Nitroglycerin (Sl Tab) 0.4 Mg) 1 tab Q5M PRN SL ANGINA; Start at 14:30 Bisacodyl (Dulcolax Supp) 10 mg Q6 PRN [place] CONSTIPATION; Start 11/26/16 at 14:30 Docusate Sodium (Colace) 100 mg DAILY PRN PO constipation; Start 11/26/16 at 14: 30 Polyethylene Glycol (Miralax) 17 gm DAILY PO ; Start 11/27/16 at 09:00 Methylprednisolone Sodium Succinate 80 mg 80 mg Q6 IV Last administered on 18:10; Admin Dose 80 MG; Start 11/26/16 at 18:00 Levofloxacin/ Dextrose (Levaquin 750 Mg/ D5W 150 ml (Pmx)) 150 ml @ 100 mls/hr Q24H IVPB Last administered on 11/26/16 15:52; Admin Dose 100 MLS/HR; Start 11/26/16 at 15:00 JESSICA CROCKER Nov 26, 2016 19:22
[2016-11-26] MEDS ORDERED: ALBUTEROL/IPRATROPIUM (NEB) 3 ML AMP HHN PRN (19:30)
[2016-11-26 20:00] VITALS: BP 123/66; RESP 18
[2016-11-26 20:07] VITALS: PULSE 94
[2016-11-26] MEDS: NICOTINE (21 MG/24 HR) PATCH TRANSDERM SCH (21:26)
[2016-11-26] MEDS: GABAPENTIN 400 MG CAP PO SCH (21:26)
[2016-11-26] MEDS: HEPARIN 5,000 UNIT/0.5 ML VIAL SC SCH (21:41)
[2016-11-26] MEDS: BUSPIRONE 10 MG TAB PO SCH (22:23)
[2016-11-26] MEDS: ZOLPIDEM 5 MG TAB PO SCH (22:26)
[2016-11-27] VITALS (12 sets, daily range): BP systolic 109–158; BP diastolic 59–87; PULSE 89–122; RESP 18–20
[2016-11-27] MEDS: ALBUTEROL/IPRATROPIUM (NEB) 3 ML AMP HHN SCH ×6 (00:53→20:24)
[2016-11-27] MEDS: PANTOPRAZOLE (EC) 40 MG TAB PO SCH (05:13)
[2016-11-27] MEDS: METHYLPREDNISOLONE 125 MG INJ IV SCH ×4 (05:13→23:11)
[2016-11-27] MEDS: morphine 2 MG INJ IV PRN ×4 (05:14→23:11)
[2016-11-27] MEDS: SOD CHLORIDE 0.45% 1,000 ML IV SCH ×2 (05:14→21:02)
[2016-11-27 07:45] LABS: CHOL/HDL RATIO 3.1 RATIO
[2016-11-27 08:26] LABS: ADD SCAN DIFF NO
[2016-11-27] MEDS: HYDROCODONE/APAP (5/325) TAB PO PRN (08:34)
[2016-11-27 08:35] LABS: BASOPHILS % 0.2 % (0.0-2.0); HEMATOCRIT 42.7 % (37.0-47.0); HEMOGLOBIN 14.5 g/dl (12.0-16.0); LYMPHOCYTES # 1.6 10^3/ul (0.8-2.9); MEAN CORPUSCULAR HEMOGLOBIN 31.7 pg (29.0-33.0); MEAN CORPUSCULAR VOLUME 93.2 fl (82.0-101.0); MEAN PLATELET VOLUME 10.3 fl (7.4-10.4); MONOCYTE # 0.3 10^3/ul (0.3-0.9); MONOCYTES % 2.5 % (0.0-11.0); NEUTROPHIL # 11.1 10^3/ul (1.6-7.5); NEUTROPHILS % 83.5 % (39.0-77.0); PLATELET COUNT 304 10^3/UL (140-415); RED BLOOD COUNT 4.58 10^6/ul (4.20-5.40); RED CELL DISTRIBUTION WIDTH 12.6 % (11.5-14.5); WHITE BLOOD COUNT 13.3 10^3/ul (4.8-10.8)
[2016-11-27] MEDS: BUSPIRONE 10 MG TAB PO SCH ×2 (08:35→21:06)
[2016-11-27] MEDS: POLYETHYLENE GLYCOL 17 GM PACKET PO SCH (08:36)
[2016-11-27] MEDS: GABAPENTIN 400 MG CAP PO SCH ×3 (08:36→20:55)
[2016-11-27 08:44] LABS: THYROID STIMULATING HORMONE 0.167 MIU/L (0.465-4.680)
[2016-11-27] MEDS: HEPARIN 5,000 UNIT/0.5 ML VIAL SC SCH ×2 (08:44→20:56)
[2016-11-27] MEDS ORDERED: NON-FORMULARY/PATIENT OWN MED (Lurasidone Hcl (Latuda) 60 MG) PO SCH (09:00)
[2016-11-27] MEDS ORDERED: LEVOFLOXACIN 750MG/D5W (PMX) 150 ML IVPB SCH (09:00)
[2016-11-27] MEDS ORDERED: QUETIAPINE 100 MG TAB PO SCH (09:00)
[2016-11-27 09:05] LABS: CALCIUM 9.3 mg/dl (8.4-10.2); CREATININE 0.89 mg/dl (0.44-1.00); MAGNESIUM 2.1 mg/dl (1.7-2.5); PHOSPHORUS 3.5 mg/dl (2.5-4.9); POTASSIUM 4.3 mmol/L (3.5-5.1)
--- NOTE | 2016-11-27 12:17 | PN ---
Date/Time of Note Date/Time of Note DATE: 11/27/16 TIME: 12:14 Assessment/Plan VTE Prophylaxis VTE Prophylaxis Intervention: heparin Lines/Catheters IV Catheter Type (from Nrs): Peripheral IV Assessment/Plan Chief Complaint/Hosp Course Assessment and plan: 35-year-old coming in with asthma exacerbation. 1. Asthma exacerbation: Patient has had 20 prior hospitalizations for asthma attack, never intubated. Now slowly improving -Continue duo nebs every 4 hours around the clock, Solu-Medrol every 6 hours , IV fluids. -Follow-up TSH A1c lipid panel. Duo nebs as needed as well,antibiotics as well 2. Fibromyalgia: Due current pain medication 3. Psychiatric disorder: Ativan as needed 4. History of prior cervical cancer: Again patient had hysterectomy in the -[facility] for now 5. GI prophylaxis: PPI 6. DVT prophylaxis: Heparin subcutaneous 7. Smoking history: Counseled on cessation, add nicotine patch 8. Ear pain: Possible inflammation in the left greater than right ear. We will add Cipro otic drops, consider ENT consult as well per Problems: Subjective 24 Hr Interval Summary Free Text/Dictation Breathing has slightly improved. Complaining of bilateral ear pain. Exam/Review of Systems Vital Signs Vitals Vital Signs Date Time Temp Pulse Resp B/P Pulse Ox O2 Delivery O2 Flow Rate FiO2 11/27/16 12:02 122 11/27/16 11:23 97.8 18 139/77 95 11/27/16 08:32 2.0 11/27/16 08:32 Nasal Cannula 11/26/16 11:57 100 Intake and Output 11/26/16 11/26/16 11/27/16 15:00 23:00 07:00 Intake Total 500 ml Balance 500 ml Exam General: Obese female, lying in bed, no acute distress HEENT: Pupils equal round reactive to light extra ocular muscles are intact. Redness noted in left ear canal and left eardrum, possible foreign body as well. Right ear canal also slightly red. Neck: Supple Lungs: Distant breath sounds bilaterally Cardiovascular: S1-S2 heard no rubs or gallops GI: Nontender nondistended normal bowel sounds no rebound or guarding Musculoskeletal: No lower extremity edema bilaterally Neurologic: No focal deficits Results Result Diagram: 11/27/16 0635 11/27/16 0635 Results 24 hrs Laboratory Tests Test 11/26/16 12:20 11/26/16 13:44 11/27/16 06:35 White Blood Count 9.9 # 13.3 #H Red Blood Count 4.77 4.58 Hemoglobin 14.6 14.5 Hematocrit 44.1 42.7 Mean Corpuscular Volume 92.5 93.2 Mean Corpuscular Hemoglobin 30.6 31.7 Mean Corpuscular Hemoglobin Concent 33.1 34.0 Red Cell Distribution Width 12.8 12.6 Platelet Count 280 # 304 Mean Platelet Volume 10.3 10.3 Neutrophils % 44.5 83.5 H Lymphocytes % 43.1 12.0 L Monocytes % 9.5 2.5 Eosinophils % 1.3 0.0 Basophils % 0.4 0.2 Nucleated Red Blood Cells % 0.0 0.0 Neutrophils # 4.4 11.1 H Lymphocytes # 4.3 H 1.6 Monocytes # 0.9 0.3 Eosinophils # 0.1 0.0 Basophils # 0.0 0.0 Nucleated Red Blood Cells # 0.0 0.0 Sodium Level 140 139 Potassium Level 4.1 4.3 Chloride Level 98 102 Carbon Dioxide Level 28 23 Anion Gap 18 H 18 H Blood Urea Nitrogen 26 H 21 H Creatinine 1.00 0.89 Glucose Level 93 149 # Calcium Level 9.6 9.3 Troponin I < 0.012 B-Type Natriuretic Peptide 14 Free Thyroxine 0.84 Urine Color YELLOW Urine Clarity CLEAR Urine pH 6.0 Urine Specific [place] 1.023 Urine Ketones NEGATIVE Urine Nitrite NEGATIVE Urine Bilirubin NEGATIVE Urine Urobilinogen NEGATIVE Urine Leukocyte Esterase NEGATIVE Urine Hemoglobin NEGATIVE Urine Glucose NEGATIVE Urine Total Protein NEGATIVE Hemoglobin A1c 6.0 H Phosphorus Level 3.5 Magnesium Level 2.1 Triglycerides Level 83 Cholesterol Level 174 LDL Cholesterol, Calculated 102 HDL Cholesterol 55 Cholesterol/HDL Ratio 3.1 Thyroid Stimulating Hormone (TSH) 0.167 L Medications Medications Current Medications Ondansetron HCl (Zofran Inj) 4 mg Q6H PRN IV NAUSEA AND/OR VOMITING; Start 11/26 at 14:30 Acetaminophen (Tylenol Tab) 650 mg Q6H PRN PO PAIN LEVEL 1-3 OR FEVER; Start at 14:30 Acetaminophen/ Hydrocodone Bitart ([place] (5/325)) 1 tab Q6H PRN PO MODERATE PAIN LEVEL 4-6 Last administered on 11/27/16 08:34; Admin Dose 1 TAB; Start 11/26 at 14:30 Morphine Sulfate (morphine) 2 mg Q4H PRN IV SEVERE PAIN LEVEL 7-10 Last administered on 11/27/16 05:14; Admin Dose 2 MG; Start 11/26/16 at 14:30 Docusate Sodium (Colace) 100 mg Q12H PRN PO CONSTIPATION; Start 11/26/16 at 14: 30 Magnesium Hydroxide (Milk Of Mag) 30 ml DAILY PRN PO CONSTIPATION; Start at 14:30 Sodium Biphosphate/ Sodium Phosphate (Fleet Enema) 133 ml DAILY PRN [place] CONSTIPATION; Start 11/26/16 at 14:30 Pantoprazole (Protonix Tab) 40 mg DAILY@06 PO Last administered on 11/27/16 05: 13; Admin Dose 40 MG; Start 11/27/16 at 06:00 Heparin Sodium (Porcine) 5000 unit 5,000 unit Q12 SC Last administered on 08:44; Admin Dose 5,000 UNIT; Start 11/26/16 at 21:00 Sodium Chloride (1/2 NS) 1,000 ml @ 75 mls/hr [id number] IV Last administered on 11/27/16 05:14; Admin Dose 75 MLS/HR; Start 11/26/16 at 14:24 Lorazepam (Ativan) 0.5 mg Q6H PRN IV ANXIETY; Start 11/26/16 at 14:30 Hydralazine HCl (Apresoline) 10 mg Q6H PRN IV ELEVATED BLOOD PRESSURE; Start at 14:30 Clonidine (Catapres) 0.1 mg Q6H PRN PO ELEVATED BLOOD PRESSURE; Start 11/26/16 at 14:30 Nitroglycerin (Nitroglycerin (Sl Tab) 0.4 Mg) 1 tab Q5M PRN SL ANGINA; Start at 14:30 Bisacodyl (Dulcolax Supp) 10 mg Q6 PRN [place] CONSTIPATION; Start 11/26/16 at 14:30 Docusate Sodium (Colace) 100 mg DAILY PRN PO constipation; Start 11/26/16 at 14: 30 Polyethylene Glycol (Miralax) 17 gm DAILY PO Last administered on 11/27/16 08: 36; Admin Dose 17 GM; Start 11/27/16 at 09:00 Methylprednisolone Sodium Succinate 80 mg 80 mg Q6 IV Last administered on 05:13; Admin Dose 80 MG; Start 11/26/16 at 18:00 Levofloxacin/ Dextrose (Levaquin 750 Mg/ D5W 150 ml (Pmx)) 150 ml @ 100 mls/hr Q24H IVPB Last administered on 11/26/16 15:52; Admin Dose 100 MLS/HR; Start 11/26/16 at 15:00 Nicotine (Nicoderm 21 Mg/ 24hr) 1 patch HS TRANSDERM Last administered on 21:26; Admin Dose 1 PATCH; Start 11/26/16 at 20:30 Buspirone HCl (Buspar) 10 mg BID PO Last administered on 11/27/16 08:35; Admin Dose 10 MG; Start 11/26/16 at 21:00 Gabapentin (Neurontin) 800 mg BID PO Last administered on 11/27/16 08:36; Admin Dose 800 MG; Start 11/26/16 at 21:00 Quetiapine Fumarate (Seroquel) 300 mg DAILY PO Last administered on 11/27/16 08 :35; Admin Dose 300 MG; Start 11/27/16 at 09:00 Miscellaneous Information 60 mg DAILY PO ; Start 11/27/16 at 09:00; Status UNV Zolpidem Tartrate (Ambien) 5 mg HS PO Last administered on 11/26/16 22:26; Admin Dose 5 MG; Start 11/26/16 at 22:00 JESSICA CROCKER Nov 27, 2016 12:17
[2016-11-27] MEDS: CIPROFLOXACIN HCL OTIC DROP 0.25 ML BOTH EARS SCH ×2 (15:06→20:55)
[2016-11-27] MEDS: LEVOFLOXACIN 750MG/D5W (PMX) 150 ML IVPB SCH (15:06)
[2016-11-27] MEDS ORDERED: LORAZEPAM 0.5 MG TAB PO PRN (15:30)
[2016-11-27] MEDS: NICOTINE (21 MG/24 HR) PATCH TRANSDERM SCH (20:54)
[2016-11-27] MEDS: ZOLPIDEM 5 MG TAB PO SCH (20:55)
[2016-11-28] VITALS (12 sets, daily range): BP systolic 115–162; BP diastolic 58–79; PULSE 77–102; RESP 18–20
[2016-11-28] MEDS: ALBUTEROL/IPRATROPIUM (NEB) 3 ML AMP HHN SCH ×6 (00:58→20:41)
[2016-11-28] MEDS: morphine 2 MG INJ IV PRN ×4 (04:14→20:36)
[2016-11-28] MEDS: METHYLPREDNISOLONE 125 MG INJ IV SCH ×4 (06:00→22:45)
[2016-11-28] MEDS: PANTOPRAZOLE (EC) 40 MG TAB PO SCH (06:00)
[2016-11-28] MEDS: SOD CHLORIDE 0.45% 1,000 ML IV SCH ×2 (06:24→19:44)
[2016-11-28] MEDS: BUSPIRONE 10 MG TAB PO SCH ×2 (08:37→20:35)
[2016-11-28] MEDS: GABAPENTIN 400 MG CAP PO SCH ×3 (08:37→20:34)
[2016-11-28] MEDS: POLYETHYLENE GLYCOL 17 GM PACKET PO SCH (08:37)
[2016-11-28] MEDS: CIPROFLOXACIN HCL OTIC DROP 0.25 ML BOTH EARS SCH ×2 (08:38→22:46)
[2016-11-28] MEDS: HEPARIN 5,000 UNIT/0.5 ML VIAL SC SCH ×2 (08:39→20:41)
[2016-11-28] MEDS: LURASIDONE XX SCH ×4 (09:15→23:00)
[2016-11-28] MEDS: [UNRECOGNIZED DRUG - OTHER] XX SCH ×4 (09:15→23:00)
[2016-11-28 09:31] LABS: ADD SCAN DIFF NO
[2016-11-28 09:34] LABS: BASOPHILS % 0.1 % (0.0-2.0); EOSINOPHILS % 0.1 % (0.0-7.0); HEMATOCRIT 43.1 % (37.0-47.0); HEMOGLOBIN 14.2 g/dl (12.0-16.0); LYMPHOCYTES # 1.6 10^3/ul (0.8-2.9); LYMPHOCYTES % 10.9 % (15.0-51.0); MEAN CORPUSCULAR HEMOGLOBIN 31.3 pg (29.0-33.0); MEAN CORPUSCULAR HGB CONC 32.9 g/dl (32.0-37.0); MEAN CORPUSCULAR VOLUME 94.9 fl (82.0-101.0); MEAN PLATELET VOLUME 10.3 fl (7.4-10.4); MONOCYTE # 0.6 10^3/ul (0.3-0.9); MONOCYTES % 4.1 % (0.0-11.0); NEUTROPHIL # 11.9 10^3/ul (1.6-7.5); NEUTROPHILS % 79.9 % (39.0-77.0); PLATELET COUNT 273 10^3/UL (140-415); RED BLOOD COUNT 4.54 10^6/ul (4.20-5.40); RED CELL DISTRIBUTION WIDTH 13.1 % (11.5-14.5); WHITE BLOOD COUNT 14.9 10^3/ul (4.8-10.8)
[2016-11-28 09:54] LABS: CREATININE 0.87 mg/dl (0.44-1.00); POTASSIUM 4.2 mmol/L (3.5-5.1)
--- NOTE | 2016-11-28 11:37 | PN ---
Date/Time of Note Date/Time of Note DATE: 11/28/16 TIME: 11:33 Assessment/Plan VTE Prophylaxis VTE Prophylaxis Intervention: heparin Lines/Catheters IV Catheter Type (from Nrs): Peripheral IV Assessment/Plan Chief Complaint/Hosp Course Assessment and plan: 35-year-old coming in with asthma exacerbation. 1. Asthma exacerbation: Patient has had 20 prior hospitalizations for asthma attack, never intubated. Now slowly improving. -Continue duo nebs every 4 hours around the clock, Solu-Medrol every 6 hours , IV fluids. - Duo nebs as needed as well,antibiotics as well 2. Fibromyalgia: Continue current pain medication 3. Psychiatric disorder: Ativan as needed 4. History of prior cervical cancer: Again patient had hysterectomy in the -[facility] for now 5. GI prophylaxis: PPI 6. DVT prophylaxis: Heparin subcutaneous 7. Smoking history: Counseled on cessation, add nicotine patch 8. Ear pain: Possible inflammation in the left greater than right ear. -Continue Cipro otic drops, consider ENT consult as well if does not improve Problems: Subjective 24 Hr Interval Summary Free Text/Dictation Patient ambulating in the hallway, has less shortness of breath overall, asking when she can go home. Exam/Review of Systems Vital Signs Vitals Vital Signs Date Time Temp Pulse Resp B/P Pulse Ox O2 Delivery O2 Flow Rate FiO2 11/28/16 11:11 97.8 83 18 115/58 96 11/28/16 08:00 Nasal Cannula 2.0 11/26/16 11:57 100 Intake and Output 11/27/16 11/27/16 11/28/16 15:00 23:00 07:00 Intake Total 3050 ml 500 ml Balance 3050 ml 500 ml Exam General: Obese female, lying in bed, no acute distress HEENT: Pupils equal round reactive to light extra ocular muscles are intact. Redness noted in left ear canal and left eardrum, possible foreign body as well. Right ear canal also slightly red. Neck: Supple Lungs: less istant breath sounds bilaterally, no wheezes Cardiovascular: S1-S2 heard no rubs or gallops GI: Nontender nondistended normal bowel sounds no rebound or guarding Musculoskeletal: No lower extremity edema bilaterally Neurologic: No focal deficits Results Result Diagram: 11/28/16 0850 11/28/16 0850 Results 24 hrs Laboratory Tests Test 11/28/16 08:50 White Blood Count 14.9 H Red Blood Count 4.54 Hemoglobin 14.2 Hematocrit 43.1 Mean Corpuscular Volume 94.9 Mean Corpuscular Hemoglobin 31.3 Mean Corpuscular Hemoglobin Concent 32.9 Red Cell Distribution Width 13.1 Platelet Count 273 Mean Platelet Volume 10.3 Neutrophils % 79.9 H Lymphocytes % 10.9 L Monocytes % 4.1 Eosinophils % 0.1 Basophils % 0.1 Nucleated Red Blood Cells % 0.0 Neutrophils # 11.9 H Lymphocytes # 1.6 Monocytes # 0.6 Eosinophils # 0.0 Basophils # 0.0 Nucleated Red Blood Cells # 0.0 Sodium Level 139 Potassium Level 4.2 Chloride Level 101 Carbon Dioxide Level 29 Anion Gap 13 Blood Urea Nitrogen 22 H Creatinine 0.87 Glucose Level 192 Calcium Level 9.0 Medications Medications Current Medications Ondansetron HCl (Zofran Inj) 4 mg Q6H PRN IV NAUSEA AND/OR VOMITING; Start 11/26 at 14:30 Acetaminophen (Tylenol Tab) 650 mg Q6H PRN PO PAIN LEVEL 1-3 OR FEVER; Start at 14:30 Acetaminophen/ Hydrocodone Bitart ([place] (5/325)) 1 tab Q6H PRN PO MODERATE PAIN LEVEL 4-6 Last administered on 11/27/16 08:34; Admin Dose 1 TAB; Start 11/26 at 14:30 Morphine Sulfate (morphine) 2 mg Q4H PRN IV SEVERE PAIN LEVEL 7-10 Last administered on 11/28/16 09:28; Admin Dose 2 MG; Start 11/26/16 at 14:30 Docusate Sodium (Colace) 100 mg Q12H PRN PO CONSTIPATION; Start 11/26/16 at 14: 30 Magnesium Hydroxide (Milk Of Mag) 30 ml DAILY PRN PO CONSTIPATION; Start at 14:30 Sodium Biphosphate/ Sodium Phosphate (Fleet Enema) 133 ml DAILY PRN [place] CONSTIPATION; Start 11/26/16 at 14:30 Pantoprazole (Protonix Tab) 40 mg DAILY@06 PO Last administered on 11/28/16 06: 00; Admin Dose 40 MG; Start 11/27/16 at 06:00 Heparin Sodium (Porcine) 5000 unit 5,000 unit Q12 SC Last administered on 08:39; Admin Dose 5,000 UNIT; Start 11/26/16 at 21:00 Sodium Chloride (1/2 NS) 1,000 ml @ 75 mls/hr [id number] IV Last administered on 11/27/16 21:02; Admin Dose 75 MLS/HR; Start 11/26/16 at 14:24 Hydralazine HCl (Apresoline) 10 mg Q6H PRN IV ELEVATED BLOOD PRESSURE; Start at 14:30 Clonidine (Catapres) 0.1 mg Q6H PRN PO ELEVATED BLOOD PRESSURE; Start 11/26/16 at 14:30 Nitroglycerin (Nitroglycerin (Sl Tab) 0.4 Mg) 1 tab Q5M PRN SL ANGINA; Start at 14:30 Bisacodyl (Dulcolax Supp) 10 mg Q6 PRN [place] CONSTIPATION; Start 11/26/16 at 14:30 Docusate Sodium (Colace) 100 mg DAILY PRN PO constipation; Start 11/26/16 at 14: 30 Polyethylene Glycol (Miralax) 17 gm DAILY PO Last administered on 11/28/16 08: 37; Admin Dose 17 GM; Start 11/27/16 at 09:00 Methylprednisolone Sodium Succinate 80 mg 80 mg Q6 IV Last administered on 06:00; Admin Dose 80 MG; Start 11/26/16 at 18:00 Levofloxacin/ Dextrose (Levaquin 750 Mg/ D5W 150 ml (Pmx)) 150 ml @ 100 mls/hr Q24H IVPB Last administered on 11/27/16 15:06; Admin Dose 100 MLS/HR; Start 11/26/16 at 15:00 Nicotine (Nicoderm 21 Mg/ 24hr) 1 patch HS TRANSDERM Last administered on 20:54; Admin Dose 1 PATCH; Start 11/26/16 at 20:30 Buspirone HCl (Buspar) 10 mg BID PO Last administered on 11/28/16 08:37; Admin Dose 10 MG; Start 11/26/16 at 21:00 Miscellaneous Information 60 mg DAILY PO ; Start 11/27/16 at 09:00; Status UNV Zolpidem Tartrate (Ambien) 5 mg HS PO Last administered on 11/27/16 20:55; Admin Dose 5 MG; Start 11/26/16 at 22:00 Ciprofloxacin HCl (Ciprofloxacin HCl Otic) 2 drop BID BOTH EARS Last administered on 11/28/16 08:38; Admin Dose 2 DROP; Start 11/27/16 at 13:30 Gabapentin (Neurontin) 800 mg TID PO Last administered on 11/28/16 08:37; Admin Dose 800 MG; Start 11/27/16 at 13:00 Quetiapine Fumarate (Seroquel) 300 mg QPM PO ; Start 11/28/16 at 21:00 Miscellaneous Information (*Order Clarification Bulletin) MEDICATION REQUIRES CLARIFICATI... Q8H XX ; Start 11/27/16 at 15:00 Lorazepam (Ativan) 0.5 mg Q6H PRN PO ANXIETY; Start 11/27/16 at 15:30 JESSICA CROCKER Nov 28, 2016 11:37
[2016-11-28] MEDS: SENNA TAB PO SCH ×2 (12:17→20:35)
[2016-11-28] MEDS: DOCUSATE SODIUM 100 MG CAP PO SCH ×2 (12:17→20:35)
[2016-11-28] MEDS: LEVOFLOXACIN 750MG/D5W (PMX) 150 ML IVPB SCH (14:19)
[2016-11-28] MEDS: ZOLPIDEM 5 MG TAB PO SCH (20:35)
[2016-11-28] MEDS: NICOTINE (21 MG/24 HR) PATCH TRANSDERM SCH (20:44)
[2016-11-28] MEDS ORDERED: QUETIAPINE 100 MG TAB PO SCH (21:00)
[2016-11-29] VITALS (9 sets, daily range): BP systolic 118–172; BP diastolic 56–81; PULSE 80–101; RESP 16–20
[2016-11-29] MEDS: ALBUTEROL/IPRATROPIUM (NEB) 3 ML AMP HHN SCH ×4 (01:41→13:40)
[2016-11-29] MEDS: PANTOPRAZOLE (EC) 40 MG TAB PO SCH (05:40)
[2016-11-29] MEDS: METHYLPREDNISOLONE 125 MG INJ IV SCH ×2 (05:40→12:26)
[2016-11-29] MEDS: morphine 2 MG INJ IV PRN ×2 (05:42→12:25)
[2016-11-29] MEDS: [UNRECOGNIZED DRUG - OTHER] XX SCH ×2 (07:00→15:00)
[2016-11-29] MEDS: LURASIDONE XX SCH ×2 (07:00→15:00)
[2016-11-29] MEDS: HYDROCODONE/APAP (5/325) TAB PO PRN (07:47)
[2016-11-29] MEDS: POLYETHYLENE GLYCOL 17 GM PACKET PO SCH (08:49)
[2016-11-29] MEDS: GABAPENTIN 400 MG CAP PO SCH ×2 (08:49→13:51)
[2016-11-29] MEDS: DOCUSATE SODIUM 100 MG CAP PO SCH (08:49)
[2016-11-29] MEDS: SENNA TAB PO SCH (08:49)
[2016-11-29] MEDS: CIPROFLOXACIN HCL OTIC DROP 0.25 ML BOTH EARS SCH (08:50)
[2016-11-29] MEDS: BUSPIRONE 10 MG TAB PO SCH (08:50)
[2016-11-29] MEDS: SOD CHLORIDE 0.45% 1,000 ML IV SCH (09:04)
[2016-11-29] MEDS: HEPARIN 5,000 UNIT/0.5 ML VIAL SC SCH (09:09)
[2016-11-29 09:25] LABS: ADD SCAN DIFF NO
[2016-11-29 09:37] LABS: ABNORMAL IP MESSAGE 1; BASOPHIL # 0.1 10^3/ul (0.0-0.1); BASOPHILS % 0.5 % (0.0-2.0); EOSINOPHILS % 0.1 % (0.0-7.0); HEMOGLOBIN 14.8 g/dl (12.0-16.0); LYMPHOCYTES # 1.8 10^3/ul (0.8-2.9); LYMPHOCYTES % 14.8 % (15.0-51.0); MEAN CORPUSCULAR HGB CONC 32.2 g/dl (32.0-37.0); MEAN CORPUSCULAR VOLUME 96.2 fl (82.0-101.0); MEAN PLATELET VOLUME 11.4 fl (7.4-10.4); MONOCYTE # 0.7 10^3/ul (0.3-0.9); MONOCYTES % 5.7 % (0.0-11.0); NEUTROPHIL # 9.1 10^3/ul (1.6-7.5); NEUTROPHILS % 72.8 % (39.0-77.0); NUCLEATED RED BLOOD CELLS% 0.2 /100WBC (0.0-0.0); PLATELET COUNT 221 10^3/UL (140-415); RED BLOOD COUNT 4.78 10^6/ul (4.20-5.40); WHITE BLOOD COUNT 12.5 10^3/ul (4.8-10.8)
[2016-11-29 09:47] LABS: CALCIUM 9.2 mg/dl (8.4-10.2); CREATININE 0.89 mg/dl (0.44-1.00); POTASSIUM 4.2 mmol/L (3.5-5.1)
--- NOTE | 2016-11-29 13:17 | PDOCDIS ---
Discharge Instructions CONDITION Patient Condition: Stable HOME CARE INSTRUCTIONS: Special Diet: REG ACTIVITY: Activity Restrictions: Slowly Increase Activity FOLLOW UP/APPOINTMENTS Follow-up Plan Please take your medicines as prescribed, see your doctor in the clinic in the next 1 week. JESSICA CROCKER Nov 29, 2016 13:17
[2016-11-29] MEDS ORDERED: NICO1PAT6 TRANSDERM (13:20)
[2016-11-29] MEDS ORDERED: LEVO750T25 PO (13:20)
[2016-11-29] MEDS ORDERED: POLY17PO6 PO (13:20)
[2016-11-29] MEDS ORDERED: CIPR1DRO3 BOTH EARS (13:20)
[2016-11-29] MEDS ORDERED: ALBU8.5H3 INH (13:20)
--- NOTE | 2016-11-29 13:26 | DS ---
Date/Time of Note Date/Time of Note DATE: 11/29/16 TIME: 13:22 Discharge Summary Admission/Discharge Info Admit Date/Time Nov 26, 2016 at 14:12 Discharge Date/Time Discharge Diagnosis 1. Asthma exacerbation: Patient has had 20 prior hospitalizations for asthma attack, never intubated. 2. Fibromyalgia: Continue current pain medication 3. Psychiatric disorder: Ativan as needed 4. History of prior cervical cancer: Again patient had hysterectomy in the past 5. Smoking history: Counseled on cessation, add nicotine patch 6. Ear pain: On antibiotic drops Patient Condition: Stable Hospital Course 35-year-old female past medical history of asthma with 20 prior asthma attack admissions, never intubated, psychiatric disorder, fibromyalgia, cervical cancer status post hysterectomy in the past who presents with shortness of breath going on for the last few days. Patient says she uses albuterol inhaler , Advair, and Singulair at home. She is a smoker but apparently quit 1 week ago. Denies any upper or lower GI bleeding, no fevers or chills, no diarrhea no constipation, no nausea vomiting. Patient was admitted to telemetry floor, started on breathing treatments, IV steroids, antibiotics. Over the course of her hospital stay her breathing symptoms slowly improved. She also complained of left greater than right ear pain, there was significant redness noted in the left ear canal and left tympanic membrane, so she was started on antibiotic drops for that. She was also given nicotine patch and counseled on smoking cessation. Because her symptoms have improved she is able to ambulate, tolerate p.o. diet, she will be discharged home today in improved condition she will go home with prednisone taper 40 mg p.o. daily for 2 days then 20 mg p.o. daily for 2 days then 10 mg p.o. daily for 2 days and stop. For rest of discharge medication list please see DC summary for that here. Home Meds Active Scripts Albuterol Sulfate* (Proair HFA*) 8.5 Gm Hfa.aer.ad, 2 PUFF INH Q4, #1 INHALER 7 Refills Prov:JESSICA CROCKER S. 11/29/16 Levofloxacin* (Levaquin*) 750 Mg Tablet, 750 MG PO DAILY for 5 Days, TAB Prov:JESSICA CROCKER S. 11/29/16 Polyethylene Glycol* (Miralax*) 17 Gm Powd.pack, 17 GM PO DAILY for 30 Days, 2 Refills Prov:JESSICA CROCKER S. 11/29/16 Ciprofloxacin Hcl (CIPROFLOXACIN HCL) 1 Each Droperette, 2 DROP BOTH EARS BID for 5 Days Prov:JESSICA CROCKER S. 11/29/16 Nicotine* (Nicotine* Patch) 21 mg/day Patch, 1 PATCH TRANSDERM HS, #30 3 Refills Prov:JESSICA CROCKER S. 11/29/16 Reported Medications Gabapentin* (Gabapentin*) 800 Mg Tablet, 800 MG PO BID, #90 TAB 11/26/16 Hydroxyzine Pamoate* (Hydroxyzine Pamoate*) 25 Mg Capsule, 25-50 MG PO DAILY Y for ANXIETY, #30 CAP 11/26/16 Pantoprazole* (Protonix*) 40 Mg Tablet.dr, 40 MG PO DAILY, TAB 11/26/16 Ramelteon (Rozerem) 8 Mg Tablet, 8 MG PO HS, TAB 11/26/16 Quetiapine Fumarate* (Seroquel*) 300 Mg Tablet, 300 MG PO DAILY, TAB 11/26/16 Lurasidone Hcl (LATUDA) 60 Mg Tablet, 60 MG PO DAILY, #30 TAB 11/26/16 Buspirone Hcl* (Buspirone Hcl*) 10 Mg Tab, 10 MG PO BID, TAB 11/26/16 Discontinued Reported Medications Hydroxyzine Hcl* (Hydroxyzine Hcl*) 25 Mg Tablet, 25 MG PO Q8H Y for ITCHING, # 30 TAB 11/26/16 Discontinued Scripts Bisacodyl (Dulcolax) 10 Mg Supp.rect, 10 MG RC Q6, #90 SUPP.RECT Prov:JOSEBRIJESH DO 11/16/16 Magnesium Citrate* (Magnesium Citrate*) 296 Ml Solution, 296 ML PO ONCE, #1 BOTTLE Prov:JOSEBRIJESH DO 11/16/16 Polyethylene Glycol* (Miralax*) 17 Gm Powd.pack, 17 GM PO DAILY, #7 Prov:JOSEBRIJESH DO 11/16/16 Naproxen* (Naproxen*) 500 Mg Tablet, 500 MG PO BID Y for PAIN, #20 TAB Prov:BRIJESH GARCIA DO 11/16/16 Docusate Sodium* (Colace*) 100 Mg Capsule, 100 MG PO DAILY Y for constipation, # 30 CAP Prov:RANIILASOFIE GOMEZ 11/07/16 Cyclobenzaprine Hcl* (Cyclobenzaprine Hcl*) 10 Mg Tablet, 10 MG PO Q12 Y for MUSCLE SPASMS, #15 TAB Prov:SOFIE CA 11/07/16 Ondansetron (Ondansetron Odt) 4 Mg Tab.rapdis, 4 MG PO Q8 Y for NAUSEA AND/OR VOMITING, #10 TAB Prov:RANIILASOFIE GOMEZ 11/07/16 Hydrocodone/Acetaminophen (Hurt 10-325 Tablet) 1 Each Tablet, 1 TAB PO Q6H Y for PAIN, #15 TAB Prov:SOFIE CA 11/07/16 Diazepam* (Valium*) 5 Mg Tablet, 5 MG PO Q8, #10 TAB Prov:EDWIGECYNDY 10/19/16 Naproxen* (Naprosyn*) 500 Mg Tablet, 500 MG PO BID Y for PAIN AND/OR INFLAMMATION for 10 Days, #20 TAB Prov:EDWIGE,CYNDY 10/19/16 Primary Care Provider Not On Staff Doctor Time spent on discharge: > 30 minutes Pending Labs Laboratory Tests Test 11/29/16 08:35 White Blood Count 12.510^3/ul (4.8-10.8) Red Blood Count 4.7810^6/ul (4.20-5.40) Hemoglobin 14.8g/dl (12.0-16.0) Hematocrit 46.0% (37.0-47.0) Mean Corpuscular Volume 96.2fl (82.0-101.0) Mean Corpuscular Hemoglobin 31.0pg (29.0-33.0) Mean Corpuscular Hemoglobin Concent 32.2g/dl (32.0-37.0) Red Cell Distribution Width 13.0% (11.5-14.5) Platelet Count 33947^3/UL (140-415) Mean Platelet Volume 11.4fl (7.4-10.4) Neutrophils % 72.8% (39.0-77.0) Lymphocytes % 14.8% (15.0-51.0) Monocytes % 5.7% (0.0-11.0) Eosinophils % 0.1% (0.0-7.0) Basophils % 0.5% (0.0-2.0) Nucleated Red Blood Cells % 0.2/100WBC (0.0-0.0) Neutrophils # 9.110^3/ul (1.6-7.5) Lymphocytes # 1.810^3/ul (0.8-2.9) Monocytes # 0.710^3/ul (0.3-0.9) Eosinophils # 0.010^3/ul (0.0-0.5) Basophils # 0.110^3/ul (0.0-0.1) Nucleated Red Blood Cells # 0.010^3/ul (0.0-0.0) Sodium Level 138mmol/L (135-144) Potassium Level 4.2mmol/L (3.5-5.1) Chloride Level 99mmol/L (97-110) Carbon Dioxide Level 29mmol/L (21-31) Anion Gap 14 (8-16) Blood Urea Nitrogen 23mg/dl (7-20) Creatinine 0.89mg/dl (0.44-1.00) Glucose Level 165mg/dl (70-220) Calcium Level 9.2mg/dl (8.4-10.2) JESSICA CROCKER Nov 29, 2016 13:25
[2016-11-29] MEDS: LEVOFLOXACIN 750MG/D5W (PMX) 150 ML IVPB SCH (15:00)
== END 2016-11-29 16:13 | disposition home or self-care (01) | DRG 203 ==
LOC: E/R 11:37 → TEL 14:12
PROVIDERS: ADMIT Hospitalist; ATTEND Hospitalist
PROC: 5A09357 Assistance with Respiratory Ventilation, Less than 24 Consecutive Hours, Continuous Positive Airway Pressure (ICD-10-PCS; principal; 2016-11-26)
DX: J45.901 Unspecified asthma with (acute) exacerbation (principal); F99 Mental disorder, not otherwise specified; M79.7 Fibromyalgia; F17.200 Nicotine dependence, unspecified, uncomplicated; Z85.41 Personal history of malignant neoplasm of cervix uteri; H92.03 Otalgia, bilateral
CPT/HCPCS: 36600; 70490; 71010; 72100; 80048; 80061; 81003; 82803; 83036; 83735; 83880; 84100; 84439; 84443; 84484; 85025; 87081; 93005; 94640; 94644; 94660; 94664; 96365; 96375; 96376; J1644; J1885; J1956; J2270; J2405; J2930; J3475; J7040

== ENCOUNTER 2017-01-25 11:22 | Emergency (ER) | payer MEDICARE, OTHER ==
[~2017-01-25] VITALS: Ht 172.7 cm; Wt 142.0 kg
[~2017-01-25 11:22] MED LIST changes: +ALBU8.5H3 INH; -BISA10SU55 RC; +BUSP10TA2 PO; +CIPR1DRO3 BOTH EARS; -CYCL-319 PO; -DIAZ-90 PO; -DOCU-144 PO; +GABA-528 PO; -HYDR-902 PO; +HYDR25CA98 PO; +LEVO750T25 PO; +LURA60TA PO; -MAGN296S40 PO; -NAPR-260 PO; -NAPR-688 PO; +NICO1PAT6 TRANSDERM; -ONDA4TAB14 PO; +PANT40TA3 PO; +QUET300T13 PO; +RAME8TAB10 PO
[2017-01-25 11:25] VITALS: Ht 172.7 cm; Wt 142.0 kg
[2017-01-25] MEDS ORDERED: ALBUTEROL 0.083% (NEB) 2.5 MG/3 ML AMP HHN STA (12:01)
[2017-01-25] MEDS ORDERED: HYDROCODONE/APAP (5/325) TAB PO ONE (12:30)
[2017-01-25] MEDS ORDERED: DEXAMETHASONE 10 MG/ML 1 ML INJ PO ONE (12:30)
[2017-01-25] MEDS ORDERED: IPRATROPIUM (NEB) 0.5 MG/2.5 ML AMP HHN ONE (12:30)
[2017-01-25] MEDS ORDERED: SOD CHLORIDE 0.9% 1,000 ML IV ONE (13:30)
[2017-01-25] MEDS ORDERED: ONDANSETRON 4 MG INJ IV STA (14:18)
[2017-01-25] MEDS ORDERED: morphine 10 MG INJ IV ONE (14:30)
--- NOTE | 2017-01-25 14:48 | RADRPT ---
PROCEDURE: XR pelvis and bilateral hips. CLINICAL INDICATION: Trauma, injury TECHNIQUE: AP pelvis, frog lateral views of the bilateral hips were performed. COMPARISON: None. FINDINGS: There is normal mineralization and alignment. No acute fracture or osseous lesion is identified. There are normal hip joints without evidence of arthritis or effusion. The soft tissues are unremarkable. IMPRESSION: No definite abnormalities are identified. RPTAT:AAJJ Physician Alicia Date Time Electronically viewed and signed by Bernardo Ugalde Physician on 01/25/2017 14:48 FLORENTIN/
--- NOTE | 2017-01-25 14:48 | RADRPT ---
PROCEDURE: XR Lumbar Spine. CLINICAL INDICATION: Trauma, injury TECHNIQUE: AP, lateral and cone-down lateral view of the lumbar spine were obtained. COMPARISON: 11/26/2016 FINDINGS: There is normal vertebral mineralization. No fracture or subluxation is seen. The disc spaces are normal in appearance. The posterior elements are unremarkable. The soft tissues appear normal. IMPRESSION: Unremarkable lumbar spine. RPTAT:AAJJ Physician Alicia Date Time Electronically viewed and signed by Bernardo Ugalde Physician on 01/25/2017 14:47 FLORENTIN/
--- NOTE | 2017-01-25 14:49 | RADRPT ---
PROCEDURE: Right knee x-ray CLINICAL INDICATION: Trauma, injury TECHNIQUE: AP, lateral and oblique views of the knee were obtained. COMPARISON: None FINDINGS: There is normal mineralization. No acute fracture or dislocation is seen. There is no joint effusion. There are no significant degenerative changes. There is no significant soft tissue swelling. IMPRESSION: No definite abnormalities are identified. RPTAT:AAJJ Physician Alicia Date Time Electronically viewed and signed by Bernardo Ugalde Physician on 01/25/2017 14:49 FLORENTIN/
--- NOTE | 2017-01-25 14:50 | RADRPT ---
PROCEDURE: XR Left Ankle. CLINICAL INDICATION: Trauma, injury TECHNIQUE: AP, oblique and lateral views of the ankle were performed. COMPARISON: None. FINDINGS: There is normal mineralization and alignment. No acute fracture is identified. The angle mortise is intact. The soft tissues are unremarkable. IMPRESSION: No definite abnormalities are identified. RPTAT:AAJJ Bernardo Ugalde Physician Date Time Electronically viewed and signed by Bernardo Ugalde Physician on 01/25/2017 14:50 /
--- NOTE | 2017-01-25 14:52 | RADRPT ---
PROCEDURE: XR Cervical Spine. CLINICAL INDICATION: Trauma, injury TECHNIQUE: AP, lateral and odontoid views of the cervical spine were performed. The images were re viewed on a PACS workstation. COMPARISON: None. FINDINGS: The lateral view extends to mid C4. The inferior cervical spine is not imaged in the lateral projec tion. There is disk space narrowing at C2-3 and C3-4 with small anterior osteophytes. The prevertebral soft tissues are normal. No radiopaque foreign bodies are identified. No definite acute fracture is identified. IMPRESSION: 1. Limited study without acute abnormality as above. 2. Disk space narrowing at C2-3 and C3-4 with small anterior osteophytes. RPTAT:AAJJ Physician Alicia Date Time Electronically viewed and signed by Physician Alicia on 01/25/2017 14:52 /
[2017-01-25] MEDS ORDERED: TRAM50TA2 PO (15:10)
[2017-01-25] MEDS ORDERED: FAMO-96 PO (15:10)
[2017-01-25] MEDS ORDERED: ORPH100T PO (15:10)
[2017-01-25] MEDS ORDERED: ALBU2.5V3 NEB (15:11)
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
== END 2017-01-25 15:26 | disposition home or self-care (01) ==
LOC: FTE 11:22
DX: R10.13 Epigastric pain (principal); J45.909 Unspecified asthma, uncomplicated; F17.210 Nicotine dependence, cigarettes, uncomplicated
CPT/HCPCS: 72040; 72100; 73520; 73562; 73610; 94664; 96374; 96375; 99284; J1100; J2270; J2405; J7030

== ENCOUNTER 2017-02-06 14:26 | Emergency (ER) | payer MEDICARE, OTHER ==
[~2017-02-06] VITALS: Ht 175.3 cm; Wt 143.0 kg
[~2017-02-06 14:26] MED LIST changes: +ALBU2.5V3 NEB; +FAMO-96 PO; +ORPH100T PO; +TRAM50TA2 PO
[2017-02-06 14:28] VITALS: Ht 175.3 cm; Wt 143.0 kg
[2017-02-06] MEDS ORDERED: EPINEPHrine 1 MG INJ IM STA (14:37)
[2017-02-06] MEDS ORDERED: DIPHENHYDRAMINE 50 MG INJ IV STA (14:37)
[2017-02-06] MEDS ORDERED: FAMOTIDINE 20 MG INJ IV STA (14:37)
[2017-02-06] MEDS ORDERED: ALBUTEROL 0.083% (NEB) 2.5 MG/3 ML AMP INH STA ×2 (14:37→18:10)
[2017-02-06] MEDS ORDERED: METHYLPREDNISOLONE 125 MG INJ IV STA (14:37)
[2017-02-06] MEDS ORDERED: ONDANSETRON 4 MG INJ IV STA (17:02)
[2017-02-06] MEDS ORDERED: HYDROmorphONE 1 MG/ML SYG IV STA (17:02)
[2017-02-06 17:22] LABS: ADD UMIC YES; UR ASCORBIC ACID NEGATIVE (NEGATIVE); UR BACTERIA FEW /HPF (NONE SEEN); UR BILIRUBIN (Dip) NEGATIVE (NEGATIVE); UR BLOOD (Dip) 2+ mg/dL (NEGATIVE); UR CLARITY SLIGHTLY CLOUDY (CLEAR); UR COLOR YELLOW (YELLOW); UR GLUCOSE (Dip) NEGATIVE (NEGATIVE); UR KETONES (Dip) NEGATIVE (NEGATIVE); UR LEUKOCYTE ESTERASE (Dip) NEGATIVE Leu/ul (NEGATIVE); UR NITRITE (Dip) NEGATIVE (NEGATIVE); UR RBC 1 /HPF (0-5); UR SPECIFIC GRAVITY (Dip) 1.012 (1.003-1.030); UR SQUAMOUS EPITHELIAL CELL FEW /HPF (FEW); UR TOTAL PROTEIN (Dip) NEGATIVE (NEGATIVE); UR UROBILINOGEN (Dip) NEGATIVE (NEGATIVE)
[2017-02-06] MEDS ORDERED: PRED20TA PO (19:10)
[2017-02-06] MEDS ORDERED: ALBU8.5H3 INH (19:10)
[2017-02-06] MEDS ORDERED: CIPR500T4 PO (19:10)
[2017-02-06] MEDS ORDERED: EPIN0.3P4 INJ (19:10)
[2017-02-06] MEDS ORDERED: METR500T PO (19:10)
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
[2017-02-06 19:49] VITALS: BP 152/87; PULSE 98; RESP 22
== END 2017-02-06 19:51 | disposition home or self-care (01) ==
LOC: E/R 14:26
DX: T78.2XXA Anaphylactic shock, unspecified, initial encounter (principal); J45.909 Unspecified asthma, uncomplicated; F17.210 Nicotine dependence, cigarettes, uncomplicated; R40.2142 Coma scale, eyes open, spontaneous, at arrival to emergency department; R40.2252 Coma scale, best verbal response, oriented, at arrival to emergency department; R40.2362 Coma scale, best motor response, obeys commands, at arrival to emergency department
CPT/HCPCS: 81001; 94644; 94645; 96372; 96374; 96375; 99291; J0171; J1170; J1200; J2405; J2930; 94640

== ENCOUNTER 2017-02-13 09:31 | Emergency (ER) | payer MEDICARE, OTHER ==
[~2017-02-13] VITALS: Ht 177.8 cm; Wt 143.5 kg
[~2017-02-13 09:31] MED LIST changes: -CIPR1DRO3 BOTH EARS; +CIPR500T4 PO; +EPIN0.3P4 INJ; -LEVO750T25 PO; +METR500T PO; -NICO1PAT6 TRANSDERM; +PRED20TA PO
[2017-02-13 09:34] VITALS: Ht 177.8 cm; Wt 143.5 kg
[2017-02-13] MEDS ORDERED: ONDANSETRON 4 MG INJ IV STA (09:42)
[2017-02-13] MEDS ORDERED: KETOROLAC 30 MG INJ IV STA (09:42)
--- NOTE | 2017-02-13 09:49 | ERD ---
ER Documentation Chief Complaint Date/Time DATE: 02/13/17 TIME: 09:46 Chief Complaint abd. and back pain for 1 week, left big toe pain HPI 36-year-old female with history of obesity, diverticulitis presents with complaints, #1 suprapubic abdominal pain going to her bilateral flank regions for a week, also presents with #2 left medial ingrown toenail. Patient describes sharp pain from her suprapubic region going to both of her flank regions, she describes worsening pain gradually over the week, associated with dysuria, urgency. She reports fevers and chills, but tactile only. She denies vomiting, diarrhea. No blood in her stools. Her left medial great toe has been draining pus, she describes pain that is localized without any history of trauma. She denies history of diabetes. ROS All systems reviewed and are negative except as per history of present illness. Medications Home Meds Active Scripts Sulfamethoxazole/Trimethoprim* (Bactrim Ds* Tablet) 1 Each Tablet, 1 TAB PO BID , #14 TAB Prov:JOSE RAFAEL ARGUETA PA-C 02/13/17 Cephalexin* (Keflex*) 500 Mg Capsule, 500 MG PO QID for 7 Days, CAP Prov:JOSE RAFAEL ARGUETA PA-C 02/13/17 Ibuprofen* (Motrin*) 600 Mg Tab, 600 MG PO Q6, #30 TAB Prov:JOSE RAFAEL ARGUETA PA-C 02/13/17 Albuterol Sulfate* (Proair HFA*) 8.5 Gm Hfa.aer.ad, 2 PUFF INH Q4H Y for WHEEZING AND SOB, #1 INHALER Prov:STEPHEN SAENZ DO 02/06/17 Metronidazole* (Flagyl*) 500 Mg Tablet, 500 MG PO TID for 7 Days, TAB Prov:STEPHEN SAENZ ACheko DO 02/06/17 Ciprofloxacin Hcl* (Ciprofloxacin Hcl*) 500 Mg Tablet, 500 MG PO BID for 7 Days , TAB Prov:STEPHEN SAENZ DO 02/06/17 Prednisone* (Prednisone*) 20 Mg Tab, 60 MG PO DAILY for 5 Days, TAB Prov:STEPHEN SAENZ DO 02/06/17 Epinephrine (Epipen 2-Thierry) 0.3 Mg/0.3 Ml Pen.injctr, 1 EA INJ ONCE Y for ALLERGIC REACTION, #1 EA Prov:STEPHEN SAENZ 02/06/17 Albuterol Sulfate* (Albuterol Sulfate* Neb) 0.083%-3 Ml Neb, 2.5 MG NEB Q4 Y for SHORTNESS OF BREATH, #30 EA Prov:JOSELITO CORTES Larry 01/25/17 Famotidine* (Pepcid*) 20 Mg Tablet, 20 MG PO BID for 4 Days, TAB Prov:JOSELITO CORTES Larry 01/25/17 Orphenadrine Citrate (Norflex) 100 Mg Tablet.sa, 100 MG PO BID for 7 Days, TAB.SA Prov:JOSELITO CORTES Larry 01/25/17 Tramadol HCl (Tramadol HCl) 50 Mg Tablet, 50 MG PO Q4 Y for PAIN, #20 TAB Prov:JOSELITO CORTES Larry 01/25/17 Albuterol Sulfate* (Proair HFA*) 8.5 Gm Hfa.aer.ad, 2 PUFF INH Q4, #1 INHALER 7 Refills Prov:JESSICA CROCKER S. 11/29/16 Polyethylene Glycol* (Miralax*) 17 Gm Powd.pack, 17 GM PO DAILY for 30 Days, 2 Refills Prov:JESSICA CROCKER S. 11/29/16 Reported Medications Gabapentin* (Gabapentin*) 800 Mg Tablet, 800 MG PO BID, #90 TAB 11/26/16 Hydroxyzine Pamoate* (Hydroxyzine Pamoate*) 25 Mg Capsule, 25-50 MG PO DAILY Y for ANXIETY, #30 CAP 11/26/16 Pantoprazole* (Protonix*) 40 Mg Tablet.dr, 40 MG PO DAILY, TAB 11/26/16 Ramelteon (Rozerem) 8 Mg Tablet, 8 MG PO HS, TAB 11/26/16 Quetiapine Fumarate* (Seroquel*) 300 Mg Tablet, 300 MG PO DAILY, TAB 11/26/16 Lurasidone Hcl (LATUDA) 60 Mg Tablet, 60 MG PO DAILY, #30 TAB 11/26/16 Buspirone Hcl* (Buspirone Hcl*) 10 Mg Tab, 10 MG PO BID, TAB 11/26/16 Discontinued Scripts Levofloxacin* (Levaquin*) 750 Mg Tablet, 750 MG PO DAILY for 5 Days, TAB Prov:JESSICA CROCKER. 11/29/16 Ciprofloxacin Hcl (CIPROFLOXACIN HCL) 1 Each Droperette, 2 DROP BOTH EARS BID for 5 Days Prov:JESSICA CROCKER. 11/29/16 Nicotine* (Nicotine* Patch) 21 mg/day Patch, 1 PATCH TRANSDERM HS, #30 3 Refills Prov:JESSICA CROCKER. 11/29/16 Allergies Allergies: Coded Allergies: aspirin (Verified Allergy, Unknown, 02/13/17) divalproex sodium (Verified Allergy, Unknown, 02/13/17) PMhx/Soc History of Surgery: Yes (HYSTO) Anesthesia Reaction: No Hx Neurological Disorder: No Hx Respiratory Disorders: Yes (ASTHMA) Hx Cardiac Disorders: No Hx Psychiatric Problems: Yes (PTSD;PANIC/ANXIETY ATTACKS) Hx Miscellaneous Medical Probl: No Hx Alcohol Use: No Hx Substance Use: No Hx Tobacco Use: Yes Smoking Status: Smoker,current status unk Physical Exam Vitals Vital Signs Date Time Temp Pulse Resp B/P Pulse Ox O2 Delivery O2 Flow Rate FiO2 02/13/17 09:34 98.2 110 18 167/105 96 Physical Exam General: Well-developed, well-nourished. The patient appears in no acute distress. HEENT: Head is normocephalic, atraumatic. No scleral icterus. Neck: Supple. Nontender. Lungs: Clear to auscultation. Normal air movement. Heart: Regular rate and rhythm. S1 and S2 are normal. No murmurs, gallops, or rubs. Abdomen: Soft, positive suprapubic tenderness, nondistended. Bowel sounds are normoactive. No tenderness to McBurney's point, negative Covarrubias sign, no peritoneal signs, guarding or masses. No CVA tenderness Extremities: No clubbing or cyanosis. Normal pulses. Moving extremities x 4. No weakness. Neurologic: Alert and oriented 3. No focal deficits. Skin: Left medial great toe is ingrown, with erythema. Capillary refill less than 2 seconds, atraumatic. Result Diagram: 02/13/17 1000 02/13/17 1000 Results 24 hrs Laboratory Tests Test 02/13/17 09:52 02/13/17 10:00 Urine Color YELLOW Urine Clarity CLEAR Urine pH 5.0 Urine Specific [place] 1.008 Urine Ketones NEGATIVEmg/dL Urine Nitrite NEGATIVEmg/dL Urine Bilirubin NEGATIVEmg/dL Urine Urobilinogen NEGATIVEmg/dL Urine Leukocyte Esterase NEGATIVELeu/ul Urine Hemoglobin NEGATIVEmg/dL Urine Glucose NEGATIVEmg/dL Urine Total Protein NEGATIVEmg/dl Urine Test NEGATIVE White Blood Count 8.110^3/ul Red Blood Count 4.7510^6/ul Hemoglobin 14.7g/dl Hematocrit 43.5% Mean Corpuscular Volume 91.6fl Mean Corpuscular Hemoglobin 30.9pg Mean Corpuscular Hemoglobin Concent 33.8g/dl Red Cell Distribution Width 13.2% Platelet Count 61939^3/UL Mean Platelet Volume 10.2fl Neutrophils % 43.6% Lymphocytes % 43.0% Monocytes % 10.3% Eosinophils % 2.1% Basophils % 0.6% Nucleated Red Blood Cells % 0.0/100WBC Neutrophils # 3.510^3/ul Lymphocytes # 3.510^3/ul Monocytes # 0.810^3/ul Eosinophils # 0.210^3/ul Basophils # 0.110^3/ul Nucleated Red Blood Cells # 0.010^3/ul Sodium Level 139mmol/L Potassium Level 4.5mmol/L Chloride Level 106mmol/L Carbon Dioxide Level 26mmol/L Anion Gap 12 Blood Urea Nitrogen 20mg/dl Creatinine 0.91mg/dl Glucose Level 71mg/dl Calcium Level 9.2mg/dl Total Bilirubin 0.2mg/dl Direct Bilirubin 0.00mg/dl Indirect Bilirubin 0.2mg/dl Aspartate Amino Transf (AST/SGOT) 48IU/L Alanine Aminotransferase (ALT/SGPT) 100IU/L Alkaline Phosphatase 78IU/L Total Protein 6.3g/dl Albumin 3.8g/dl Globulin 2.50g/dl Albumin/Globulin Ratio 1.52 Lipase 41U/L Current Medications Medications (Trade) Dose Ordered Sig/Lupe Route PRN Reason Start Time Stop Time Status Last Admin Dose Admin Ondansetron HCl (Zofran Inj) 4 mg ONCE STAT IV 02/13/17 09:42 02/13/17 09:47 DC 02/13/17 10:16 Ketorolac Tromethamine 30 mg 30 mg ONCE STAT IV 02/13/17 09:42 02/13/17 09:47 DC 02/13/17 10:15 Sodium Chloride (NS) 1,000 ml @ 1,000 mls/hr Q1H ONCE IV 02/13/17 10:00 02/13/17 11:20 DC 02/13/17 10:16 Lidocaine (Xylocaine 1% (Mdv) 20 ml) 20 ml ONCE ONCE SC 02/13/17 10:00 02/13/17 10:01 DC Acetaminophen/ Hydrocodone Bitart 1 tab 1 tab ONCE ONCE PO 02/13/17 11:30 02/13/17 11:31 Sodium Chloride (NS) 250 ml @ 250 mls/hr Q1H ONCE IV 02/13/17 11:30 02/13/17 12:29 Procedures/MDM Procedure: Ingrown Toenail removal: patient was verbally consented. Patient's great toe was prepped with Betadine. Digital block was done with lidocaine 1% without epinephrine, approximately 7 cc. Patient had good local anesthetic effect achieved. Foreceps were used to lift the nailbed, as well as scissors to cut just distal to the cuticle. Hemostat was used, was clamped onto the toenail, and flipped for removal. It was minor bleeding, hemostasis was achieved. Patient was neurovascularly intact postprocedure. a Clean dressing was applied, patient was placed in a postop shoe. Medical Decision-makin-year-old female presents with abdominal pain going to her back, patient also presents with an ingrown toenail left great toe that was incised and drained. She frequents the emergency department for multiple abdominal pain. Patient has suprapubic abdominal pain, urine is negative, there is no leukocytosis. There is mild elevation of AST and ALT with normal lipase. Doubt acute cholecystitis or cholangitis or choledocholithiasis. Patient does frequent the emergency department for multiple complaints including abdominal pain. I have advised patient to follow-up with her primary care doctor regarding her abdominal pain. I suspect patient has chronic pain, she is requesting narcotic pain medication.. She is to follow-up with her primary for further pain medication refill. For her ingrown toenail, it was excised, she was advised to follow-up with podiatry and was given information to Dr. Wu. Departure Diagnosis: Primary Impression: Ingrown toenail Additional Impression: Abdominal pain Condition: JOSE RAFAEL Bailey PA-C Feb 13, 2017 09:49
[2017-02-13] MEDS ORDERED: SOD CHLORIDE 0.9% 1,000 ML IV ONE (10:00)
[2017-02-13] MEDS ORDERED: LIDOCAINE 1% (MDV) 20 ML INJ SC ONE (10:00)
[2017-02-13 10:23] LABS: BASOPHIL # 0.1 10^3/ul (0.0-0.1); BASOPHILS % 0.6 % (0.0-2.0); EOSINOPHILS # 0.2 10^3/ul (0.0-0.5); EOSINOPHILS % 2.1 % (0.0-7.0); HEMATOCRIT 43.5 % (37.0-47.0); HEMOGLOBIN 14.7 g/dl (12.0-16.0); LYMPHOCYTES # 3.5 10^3/ul (0.8-2.9); MEAN CORPUSCULAR HEMOGLOBIN 30.9 pg (29.0-33.0); MEAN CORPUSCULAR HGB CONC 33.8 g/dl (32.0-37.0); MEAN CORPUSCULAR VOLUME 91.6 fl (82.0-101.0); MEAN PLATELET VOLUME 10.2 fl (7.4-10.4); MONOCYTE # 0.8 10^3/ul (0.3-0.9); MONOCYTES % 10.3 % (0.0-11.0); NEUTROPHIL # 3.5 10^3/ul (1.6-7.5); NEUTROPHILS % 43.6 % (39.0-77.0); PLATELET COUNT 251 10^3/UL (140-415); RED BLOOD COUNT 4.75 10^6/ul (4.20-5.40); RED CELL DISTRIBUTION WIDTH 13.2 % (11.5-14.5); WHITE BLOOD COUNT 8.1 10^3/ul (4.8-10.8)
[2017-02-13 10:26] LABS: ADD UMIC NO; UR ASCORBIC ACID NEGATIVE (NEGATIVE); UR BILIRUBIN (Dip) NEGATIVE (NEGATIVE); UR BLOOD (Dip) NEGATIVE (NEGATIVE); UR CLARITY CLEAR (CLEAR); UR COLOR YELLOW (YELLOW); UR GLUCOSE (Dip) NEGATIVE (NEGATIVE); UR KETONES (Dip) NEGATIVE (NEGATIVE); UR LEUKOCYTE ESTERASE (Dip) NEGATIVE Leu/ul (NEGATIVE); UR NITRITE (Dip) NEGATIVE (NEGATIVE); UR SPECIFIC GRAVITY (Dip) 1.008 (1.003-1.030); UR TOTAL PROTEIN (Dip) NEGATIVE (NEGATIVE); UR UROBILINOGEN (Dip) NEGATIVE (NEGATIVE)
[2017-02-13 10:40] LABS: ALBUMIN 3.8 g/dl (3.3-4.9); ALBUMIN/GLOBULIN RATIO 1.52; BILIRUBIN,INDIRECT 0.2 mg/dl (0-1.1); BILIRUBIN,TOTAL 0.2 mg/dl (0.2-1.3); CALCIUM 9.2 mg/dl (8.4-10.2); CREATININE 0.91 mg/dl (0.44-1.00); POTASSIUM 4.5 mmol/L (3.5-5.1); TOTAL PROTEIN 6.3 g/dl (6.1-8.1)
[2017-02-13] MEDS ORDERED: CEPH-443 PO (11:11)
[2017-02-13] MEDS ORDERED: SULF1TAB31 PO (11:11)
[2017-02-13] MEDS ORDERED: IBUP-1542 PO (11:11)
[2017-02-13] MEDS ORDERED: SOD CHLORIDE 0.9% 250 ML IV ONE (11:30)
[2017-02-13] MEDS ORDERED: HYDROCODONE/APAP (5/325) TAB PO ONE (11:30)
== END 2017-02-13 11:29 | disposition home or self-care (01) ==
LOC: FTE 09:31
DX: L60.0 Ingrowing nail (principal); R10.30 Lower abdominal pain, unspecified; J45.909 Unspecified asthma, uncomplicated; F17.210 Nicotine dependence, cigarettes, uncomplicated
CPT/HCPCS: 11765; 36415; 80053; 81003; 83690; 84703; 85025; 96361; 96374; 96375; 99284; J1885; J2405; J7030; L3260; J7040

== ENCOUNTER 2017-03-02 13:17 | Emergency (ER) | payer MEDICARE, OTHER ==
[~2017-03-02] VITALS: Ht 177.8 cm; Wt 142.0 kg
[~2017-03-02 13:17] MED LIST changes: +CEPH-443 PO; +IBUP-1542 PO; +SULF1TAB31 PO
[2017-03-02 14:01] VITALS: Ht 177.8 cm; Wt 142.0 kg
[2017-03-02] MEDS ORDERED: ONDANSETRON 4 MG INJ IV STA (14:41)
[2017-03-02] MEDS ORDERED: SOD CHLORIDE 0.9% 1,000 ML IV STA (14:41)
[2017-03-02 15:48] LABS: BASOPHILS % 0.5 % (0.0-2.0); EOSINOPHILS # 0.1 10^3/ul (0.0-0.5); EOSINOPHILS % 1.5 % (0.0-7.0); HEMATOCRIT 43.6 % (37.0-47.0); HEMOGLOBIN 14.9 g/dl (12.0-16.0); LYMPHOCYTES # 2.6 10^3/ul (0.8-2.9); LYMPHOCYTES % 32.4 % (15.0-51.0); MEAN CORPUSCULAR HEMOGLOBIN 31.5 pg (29.0-33.0); MEAN CORPUSCULAR HGB CONC 34.2 g/dl (32.0-37.0); MEAN CORPUSCULAR VOLUME 92.2 fl (82.0-101.0); MEAN PLATELET VOLUME 10.5 fl (7.4-10.4); MONOCYTE # 0.8 10^3/ul (0.3-0.9); MONOCYTES % 9.5 % (0.0-11.0); NEUTROPHIL # 4.4 10^3/ul (1.6-7.5); NEUTROPHILS % 55.7 % (39.0-77.0); PLATELET COUNT 265 10^3/UL (140-415); RED BLOOD COUNT 4.73 10^6/ul (4.20-5.40); RED CELL DISTRIBUTION WIDTH 12.9 % (11.5-14.5); WHITE BLOOD COUNT 7.9 10^3/ul (4.8-10.8)
[2017-03-02 16:03] LABS: ADD UMIC YES; UR AMORPHOUS CRYSTAL FEW /HPF (NONE SEEN); UR ASCORBIC ACID NEGATIVE (NEGATIVE); UR BACTERIA FEW /HPF (NONE SEEN); UR BILIRUBIN (Dip) NEGATIVE (NEGATIVE); UR BLOOD (Dip) NEGATIVE (NEGATIVE); UR CLARITY CLOUDY (CLEAR); UR COLOR YELLOW (YELLOW); UR GLUCOSE (Dip) NEGATIVE (NEGATIVE); UR KETONES (Dip) NEGATIVE (NEGATIVE); UR LEUKOCYTE ESTERASE (Dip) NEGATIVE Leu/ul (NEGATIVE); UR MUCUS FEW /HPF (NONE SEEN); UR NITRITE (Dip) NEGATIVE (NEGATIVE); UR RBC 1 /HPF (0-5); UR SPECIFIC GRAVITY (Dip) 1.017 (1.003-1.030); UR SQUAMOUS EPITHELIAL CELL MODERATE /HPF (FEW); UR TOTAL PROTEIN (Dip) NEGATIVE (NEGATIVE); UR UROBILINOGEN (Dip) 1+ mg/dL (NEGATIVE)
[2017-03-02 16:09] LABS: ALBUMIN 4.4 g/dl (3.3-4.9); ALBUMIN/GLOBULIN RATIO 1.37; BILIRUBIN,INDIRECT 0.3 mg/dl (0-1.1); BILIRUBIN,TOTAL 0.3 mg/dl (0.2-1.3); CALCIUM 9.1 mg/dl (8.4-10.2); CREATININE 1.03 mg/dl (0.44-1.00); TOTAL PROTEIN 7.6 g/dl (6.1-8.1)
--- NOTE | 2017-03-02 16:26 | RADRPT ---
PROCEDURE: CT Abdomen and Pelvis without contrast. CLINICAL INDICATION: Abdominal pain TECHNIQUE: CT scan of the abdomen and pelvis without contrast was performed on a multidetector hig h-resolution CT scanner. The patient was scanned without intravenous contrast. Coronal and sagittal reformatted images were obtained from the axial source images. Images were reviewed on a high-resol [email or web address] PACS workstation. The total exam CTDI equals 23.6 mGy and the total exam DLP equals 1504.7 mGy -cm. One or more of the following dose reduction techniques were used: Automated exposure control. Adjustment of the mA and/or kV according to patient size. Use of iterative reconstruction technique. COMPARISON: November 15, 2016 FINDINGS: CT abdomen: The lung bases are clear. The heart size is within limits. There is no significant pericardial effus ion. Hepatic morphology is within limits. There is diffuse fatty infiltration of the liver. Gallbladder i s contracted. No evidence of intrahepatic or extrahepatic dilatation. Both adrenal glands are within limits. The spleen and pancreas are within normal limits. Both kidneys are in normal anatomic position. No evidence of obstruction or hydronephrosis. No gross renal/ureteric calculi. The visualized GI tract demonstrate normal caliber loops of small and large bowel. No evidence of irene wel obstruction. The appendix is within limits. There is a small hiatal hernia. The unenhanced aorta is unremarkable. No significant retroperitoneal lymphadenopathy. CT pelvis: The bladder is within limits. There is mild sigmoid diverticulosis. The uterus is not visualized. Th ere is a left cystic adnexa, measuring 3.5 cm, likely ovarian cyst remnant. No significant free flui d. No significant pelvic lymphadenopathy. The visualized osseous structures, appears to be within limits. IMPRESSION: 1. No evidence of acute intra-abdominal/pelvic inflammatory process. No evidence of bowel obstructio n. The appendix is within normal limits. 2. Small hiatal hernia and sigmoid colon diverticulosis. 3. Fatty liver. 4. Status post hysterectomy. 5. No evidence of free fluid or free air. No gross focal fluid collection. Otherwise, unremarkable u nenhanced CT scan of the abdomen/pelvis. RPTAT: AAPP Tristin Harris Physician Date Time Electronically viewed and signed by Tristin Harris Physician on 03/02/2017 16:25 [place]/
[2017-03-02] MEDS ORDERED: DICY10CA60 PO (16:39)
[2017-03-02] MEDS ORDERED: ONDA4TAB14 PO (16:40)
[2017-03-02 16:48] VITALS: BP 134/80; PULSE 99; RESP 18; TEMP 98.6
--- NOTE | 2017-03-02 16:50 | ERD ---
ER Documentation Chief Complaint Date/Time DATE: 03/02/17 TIME: 16:47 Chief Complaint PATIENT STATED SHE HAS HAD DIARRHEA ALL NIGHT WITH FEVER HPI Patient is a 36-year-old female with a past medical history of bipolar disorder , diverticulitis who presents to emergency department for concerns of diarrhea and fevers. Patient states her symptoms started last night. Patient reports 9 episodes of nonbloody non-mucousy diarrhea yesterday night. Today she reports 2 episodes of nonbloody non-mucousy stools.. Patient states stools are watery brown. Patient denies any rectal bleeding. Patient states her Tmax was 99 Fahrenheit. Patient denies any vomiting however she does admit to nausea. Patient reports diffuse abdominal pain. Patient has any recent antibiotic use, recent travel or sick contacts. Patient denies any chest pain, shortness breath , LOC. Patient denies any homicidal and suicidal ideations at this time. ROS All systems reviewed and are negative except as per history of present illness. Medications Home Meds Active Scripts Ondansetron (Ondansetron Odt) 4 Mg Tab.rapdis, 4 MG PO Q6H Y for NAUSEA AND/OR VOMITING, #20 TAB Prov:KATHARINE BROWN PA-C 03/02/17 Dicyclomine Hcl* (Bentyl*) 10 Mg Capsule, 10 MG PO QID, #10 CAP Prov:KATHARINE BROWN PA-C 03/02/17 Sulfamethoxazole/Trimethoprim* (Bactrim Ds* Tablet) 1 Each Tablet, 1 TAB PO BID , #14 TAB Prov:JOSE RAFAEL ARGUETA PA-C 02/13/17 Cephalexin* (Keflex*) 500 Mg Capsule, 500 MG PO QID for 7 Days, CAP Prov:JOSE RAFAEL ARGUETA PA-C 02/13/17 Ibuprofen* (Motrin*) 600 Mg Tab, 600 MG PO Q6, #30 TAB Prov:JOSE RAFAEL ARGUETA PA-C 02/13/17 Albuterol Sulfate* (Proair HFA*) 8.5 Gm Hfa.aer.ad, 2 PUFF INH Q4H Y for WHEEZING AND SOB, #1 INHALER Prov:STEPHEN SAENZ DO 02/06/17 Metronidazole* (Flagyl*) 500 Mg Tablet, 500 MG PO TID for 7 Days, TAB Prov:STEPHEN SAENZ A. DO 02/06/17 Ciprofloxacin Hcl* (Ciprofloxacin Hcl*) 500 Mg Tablet, 500 MG PO BID for 7 Days , TAB Prov:STEPHEN SAENZ. DO 02/06/17 Prednisone* (Prednisone*) 20 Mg Tab, 60 MG PO DAILY for 5 Days, TAB Prov:STEPHEN SAENZ. DO 02/06/17 Epinephrine (Epipen 2-Thierry) 0.3 Mg/0.3 Ml Pen.injctr, 1 EA INJ ONCE Y for ALLERGIC REACTION, #1 EA Prov:STEPHEN SAENZ. DO 02/06/17 Albuterol Sulfate* (Albuterol Sulfate* Neb) 0.083%-3 Ml Neb, 2.5 MG NEB Q4 Y for SHORTNESS OF BREATH, #30 EA Prov:SOPHIAJOSELITO 01/25/17 Famotidine* (Pepcid*) 20 Mg Tablet, 20 MG PO BID for 4 Days, TAB Prov:JOSELITO CORTES 01/25/17 Orphenadrine Citrate (Norflex) 100 Mg Tablet.sa, 100 MG PO BID for 7 Days, TAB.SA Prov:SOPHIAJOSELITO Juarez 01/25/17 Tramadol HCl (Tramadol HCl) 50 Mg Tablet, 50 MG PO Q4 Y for PAIN, #20 TAB Prov:ISH CORTESHARMONY Juarez 01/25/17 Albuterol Sulfate* (Proair HFA*) 8.5 Gm Hfa.aer.ad, 2 PUFF INH Q4, #1 INHALER 7 Refills Prov:JESSICA CROCKER S. 11/29/16 Polyethylene Glycol* (Miralax*) 17 Gm Powd.pack, 17 GM PO DAILY for 30 Days, 2 Refills Prov:JESSICA CROCKER S. 11/29/16 Reported Medications Gabapentin* (Gabapentin*) 800 Mg Tablet, 800 MG PO BID, #90 TAB 11/26/16 Hydroxyzine Pamoate* (Hydroxyzine Pamoate*) 25 Mg Capsule, 25-50 MG PO DAILY Y for ANXIETY, #30 CAP 11/26/16 Pantoprazole* (Protonix*) 40 Mg Tablet.dr, 40 MG PO DAILY, TAB 11/26/16 Ramelteon (Rozerem) 8 Mg Tablet, 8 MG PO HS, TAB 11/26/16 Quetiapine Fumarate* (Seroquel*) 300 Mg Tablet, 300 MG PO DAILY, TAB 11/26/16 Lurasidone Hcl (LATUDA) 60 Mg Tablet, 60 MG PO DAILY, #30 TAB 11/26/16 Buspirone Hcl* (Buspirone Hcl*) 10 Mg Tab, 10 MG PO BID, TAB 11/26/16 Allergies Allergies: Coded Allergies: aspirin (Verified Allergy, Unknown, 02/13/17) divalproex sodium (Verified Allergy, Unknown, 02/13/17) PMhx/Soc History of Surgery: Yes (HYSTO) Anesthesia Reaction: No Hx Neurological Disorder: No Hx Respiratory Disorders: Yes (ASTHMA) Hx Cardiac Disorders: No Hx Psychiatric Problems: Yes (PTSD;PANIC/ANXIETY ATTACKS) Hx Miscellaneous Medical Probl: No Hx Alcohol Use: No Hx Substance Use: No Hx Tobacco Use: Yes Smoking Status: Current some day smoker Physical Exam Vitals Vital Signs Date Time Temp Pulse Resp B/P Pulse Ox O2 Delivery O2 Flow Rate FiO2 03/02/17 16:48 98.6 99 18 134/80 99 Room Air 03/02/17 14:01 98.6 112 18 155/81 99 Physical Exam GENERAL: Well-developed, well-nourished male. Appears in no acute distress. HEAD: Normocephalic, atraumatic. EYES: Pupils are equally reactive bilaterally. EOMs grossly intact. No conjunctival erythema. ENT: Moist mucous membranes. No uvula deviation. No kissing tonsils. NECK: Supple. No meningismus. Normal range of motion of the neck. LUNG: Clear to auscultation bilaterally. No rhonchi, wheezing, rales or coarse breath sounds. HEART: Regular rate and rhythm. No murmurs, rubs or gallops. ABDOMEN: No scars, ecchymosis or rashes noted. Minimally distended. Diffuse tenderness to percussion in all 4 quadrants. Positive bowel sounds in all four quadrants. No rebound tenderness, no guarding. (-) McBurney's point tenderness. No CVA tenderness. EXTREMITIES: Equal pulses bilaterally. No peripheral clubbing, cyanosis or edema. No unilateral leg swelling. NEUROLOGIC: Alert and oriented. Moving all four extremities without any difficulty. Normal speech. Steady gait. SKIN: Normal color. Warm and dry. No rashes or lesions. Result Diagram: 03/02/17 1520 03/02/17 1520 Results 24 hrs Laboratory Tests Test 03/02/17 15:00 03/02/17 15:20 Urine Color YELLOW Urine Clarity CLOUDY Urine pH 7.0 Urine Specific Randolph 1.017 Urine Ketones NEGATIVEmg/dL Urine Nitrite NEGATIVEmg/dL Urine Bilirubin NEGATIVEmg/dL Urine Urobilinogen 1+mg/dL Urine Leukocyte Esterase NEGATIVELeu/ul Urine Microscopic RBC 1/HPF Urine Microscopic WBC 2/HPF Urine Squamous Epithelial Cells MODERATE/HPF Urine Amorphous Crystals FEW/HPF Urine Bacteria FEW/HPF Urine Mucus FEW/HPF Urine Hemoglobin NEGATIVEmg/dL Urine Glucose NEGATIVEmg/dL Urine Total Protein NEGATIVEmg/dl White Blood Count 7.910^3/ul Red Blood Count 4.7310^6/ul Hemoglobin 14.9g/dl Hematocrit 43.6% Mean Corpuscular Volume 92.2fl Mean Corpuscular Hemoglobin 31.5pg Mean Corpuscular Hemoglobin Concent 34.2g/dl Red Cell Distribution Width 12.9% Platelet Count 35247^3/UL Mean Platelet Volume 10.5fl Neutrophils % 55.7% Lymphocytes % 32.4% Monocytes % 9.5% Eosinophils % 1.5% Basophils % 0.5% Nucleated Red Blood Cells % 0.0/100WBC Neutrophils # 4.410^3/ul Lymphocytes # 2.610^3/ul Monocytes # 0.810^3/ul Eosinophils # 0.110^3/ul Basophils # 0.010^3/ul Nucleated Red Blood Cells # 0.010^3/ul Sodium Level 142mmol/L Potassium Level 4.0mmol/L Chloride Level 104mmol/L Carbon Dioxide Level 30mmol/L Anion Gap 12 Blood Urea Nitrogen 14mg/dl Creatinine 1.03mg/dl Glucose Level 101mg/dl Calcium Level 9.1mg/dl Total Bilirubin 0.3mg/dl Direct Bilirubin 0.00mg/dl Indirect Bilirubin 0.3mg/dl Aspartate Amino Transf (AST/SGOT) 46IU/L Alanine Aminotransferase (ALT/SGPT) 80IU/L Alkaline Phosphatase 84IU/L Total Protein 7.6g/dl Albumin 4.4g/dl Globulin 3.20g/dl Albumin/Globulin Ratio 1.37 Lipase 63U/L Current Medications Medications (Trade) Dose Ordered Sig/Lupe Route PRN Reason Start Time Stop Time Status Last Admin Dose Admin Sodium Chloride (NS) 1,000 ml @ 1,000 mls/hr Q1H STAT IV 03/02/17 14:41 03/02/17 15:40 DC 03/02/17 15:37 Ondansetron HCl (Zofran Inj) 4 mg ONCE STAT IV 03/02/17 14:41 03/02/17 14:44 DC 03/02/17 15:40 Procedures/MDM ED COURSE: The patient was stable throughout ED course. I kept the patient and/or family informed of laboratory and diagnostic imaging results throughout the ED course. DIAGNOSTIC IMAGING: Read by radiologist. Patient: MONI WILDE : 1980 Age: 36 Sex: F MR #: [id number] DOS: 03/02/17 1441 Ordering MD: KATHARINE BROWN PA-C Location: [facility] Room/Bed: PROCEDURE: CT Abdomen and Pelvis without contrast. CLINICAL INDICATION: Abdominal pain TECHNIQUE: CT scan of the abdomen and pelvis without contrast was performed on a multidetector high-resolution CT scanner. The patient was scanned without intravenous contrast. Coronal and sagittal reformatted images were obtained from the axial source images. Images were reviewed on a high-resolution PACS workstation. The total exam CTDI equals 23.6 mGy and the total exam DLP equals 1504.7 mGy-cm. One or more of the following dose reduction techniques were used: Automated exposure control. Adjustment of the mA and/or kV according to patient size. Use of iterative reconstruction technique. COMPARISON: November 15, 2016 FINDINGS: CT abdomen: The lung bases are clear. The heart size is within limits. There is no significant pericardial effusion. Hepatic morphology is within limits. There is diffuse fatty infiltration of the liver. Gallbladder is contracted. No evidence of intrahepatic or extrahepatic dilatation. Both adrenal glands are within limits. The spleen and pancreas are within normal limits. Both kidneys are in normal anatomic position. No evidence of obstruction or hydronephrosis. No gross renal/ureteric calculi. The visualized GI tract demonstrate normal caliber loops of small and large bowel. No evidence of bowel obstruction. The appendix is within limits. There is a small hiatal hernia. The unenhanced aorta is unremarkable. No significant retroperitoneal lymphadenopathy. CT pelvis: The bladder is within limits. There is mild sigmoid diverticulosis. The uterus is not visualized. There is a left cystic adnexa, measuring 3.5 cm, likely ovarian cyst remnant. No significant free fluid. No significant pelvic lymphadenopathy. The visualized osseous structures, appears to be within limits. IMPRESSION: 1. No evidence of acute intra-abdominal/pelvic inflammatory process. No evidence of bowel obstruction. The appendix is within normal limits. 2. Small hiatal hernia and sigmoid colon diverticulosis. 3. Fatty liver. 4. Status post hysterectomy. 5. No evidence of free fluid or free air. No gross focal fluid collection. Otherwise, unremarkable unenhanced CT scan of the abdomen/pelvis. RPTAT: AAPP Physician Kevin Date Time Electronically viewed and signed by Physician Kevin on 03/02/2017 16:25 JL/ CC: KTAHARINE BROWN PA-C PROCEDURES: None. MEDICATIONS GIVEN: Iv fluids, zofran Patient tolerated medication well with no adverse reactions. Patient reported improvement in pain. MEDICAL DECISION MAKING: This is a 36-year-old female presents with diffuse abdominal pain and diarrhea 1 day. Patient does admit to history of diverticulitis. Vital signs were reviewed. Patient is afebrile. CBC showed no evidence of systemic infection or severe anemia. CMP showed no evidence of electrolyte abnormalities, severe acidosis, alkalosis , or liver disease. Patient's creatinine was noted to be 1.03, slightly elevated. Patient has normal urinary output. Patient advised to increase H2O intake and avoid taking NSAIDs. Lipase showed no evidence of acute pancreatitis. UA showed no evidence of acute infection or hematuria. Low suspicion for UTI, pyelonephritis or nephrolithiasis. Urine test was negative. CT abdomen and pelvis showed 1. No evidence of acute intra-abdominal/ pelvic inflammatory process. No evidence of bowel obstruction. The appendix is within normal limits. 2. Small hiatal hernia and sigmoid colon diverticulosis. 3. Fatty liver. 4. Status post hysterectomy. 5. No evidence of free fluid or free air. No gross focal fluid collection. Otherwise, unremarkable unenhanced CT scan of the abdomen/pelvis. At this time, patient's presentation is most consistent with diarrhea, fatty liver disease, abdominal pain. Low suspicion for traveler's diarrhea, antibiotic induced diarrhea, mesenteric ischemia, DKA, bowel perforation, cholecystitis, choledocholithiasis, pancreatitis, PUD, gastritis, GERD, splenic rupture, diverticulitis, UTI, pyelonephritis, nephrolithiasis, appendicitis, , ectopic . PRESCRIPTIONS: Leonarda Harrison DISCHARGE: At this time, patient is stable for discharge and outpatient management. Patient was given a copy of all imaging and blood work obtained today. I have instructed the patient to follow-up with his/her primary care physician in 1-2 days. I have instructed the patient to promptly return to the ER at any time for any new or worsening symptoms including increased pain, nausea, vomiting, diarrhea, fever, weakness or LOC. The patient and/or family expressed understanding of and agreement with this plan. All questions were answered. Home care instructions were provided. Disclaimer: Inadvertent spelling and grammatical errors are likely due to EHR/ dictation software use and do not reflect on the overall quality of patient care. Also, please note that the electronic time recorded on this note does not necessarily reflect the actual time of the patient encounter. Departure Diagnosis: Primary Impression: Diarrhea Diarrhea type: unspecified type Qualified Code: R19.7 - Diarrhea, unspecified type Additional Impression: Abdominal pain Abdominal location: unspecified location Qualified Code: R10.9 - Abdominal pain, unspecified abdominal location Condition: Stable Patient Instructions: Abdominal Pain, Treating Diarrhea Referrals: [facility] YOU HAVE RECEIVED A MEDICAL SCREENING EXAM AND THE RESULTS INDICATE THAT YOU DO NOT HAVE A CONDITION THAT REQUIRES URGENT TREATMENT IN THE EMERGENCY DEPARTMENT. FURTHER EVALUATION AND TREATMENT OF YOUR CONDITION CAN WAIT UNTIL YOU ARE SEEN IN YOUR DOCTORS OFFICE WITHIN THE NEXT 1-2 DAYS. IT IS YOUR RESPONSIBILITY TO MAKE AN APPOINTMENT FOR FOLOW-UP CARE. IF YOU HAVE A PRIMARY DOCTOR --you should call your primary doctor and schedule an appointment IF YOU DO NOT HAVE A PRIMARY DOCTOR YOU CAN CALL OUR PHYSICIAN REFERRAL HOTLINE AT IF YOU CAN NOT AFFORD TO SEE A PHYSICIAN YOU CAN CHOSE FROM THE FOLLOWING [facility] [id number] [facility] [address] [facility] [address] [facility] [address] [facility] [address] [facility]. [facility] [address] [facility]. [facility] YOU HAVE RECEIVED A MEDICAL SCREENING EXAM AND THE RESULTS INDICATE THAT YOU DO NOT HAVE A CONDITION THAT REQUIRES URGENT TREATMENT IN THE EMERGENCY DEPARTMENT. FURTHER EVALUATION AND TREATMENT OF YOUR CONDITION CAN WAIT UNTIL YOU ARE SEEN IN YOUR DOCTORS OFFICE WITHIN THE NEXT 1-2 DAYS. IT IS YOUR RESPONSIBILITY TO MAKE AN APPOINTMENT FOR FOLOW-UP CARE. IF YOU HAVE A PRIMARY DOCTOR --you should call your primary doctor and schedule and appointment IF YOU DO NOT HAVE A PRIMARY DOCTOR YOU CAN CALL OUR PHYSICIAN REFERRAL HOTLINE AT . IF YOU CAN NOT AFFORD TO SEE A PHYSICIAN YOU CAN CHOSE FROM THE FOLLOWING [facility] INSTITUTIONS: [facility] [address] [place] [address] [facility] [address] [place] [address] [facility] [address] [place] [address] Additional Instructions: Call your primary care doctor TOMORROW for an appointment during the next 1-2 days.See the doctor sooner or return here if your condition worsens before your appointment time. KATHARINE BROWN PA-C Mar 02, 2017 16:50
== END 2017-03-02 16:58 | disposition home or self-care (01) ==
LOC: FTE 13:17
DX: R10.84 Generalized abdominal pain (principal)
CPT/HCPCS: 36415; 74176; 80053; 81001; 83690; 85025; 96374; 99285; J2405; J7030

== ENCOUNTER 2017-04-25 11:19 | Inpatient (IN) | payer MEDICARE, OTHER ==
[~2017-04-25] VITALS: Ht 177.8 cm; Wt 144.0 kg
[~2017-04-25 11:19] MED LIST changes: +DICY10CA60 PO; +ONDA4TAB14 PO
[2017-04-25] MEDS ORDERED: ALBUTEROL 0.5% (NEB) 2.5 MG/0.5 ML AMP INH STA (11:24)
[2017-04-25] MEDS ORDERED: EPINEPHrine 1 MG INJ SC STA (11:24)
[2017-04-25] MEDS ORDERED: IPRATROPIUM (NEB) 0.5 MG/2.5 ML AMP INH STA (11:24)
[2017-04-25] MEDS ORDERED: METHYLPREDNISOLONE 125 MG INJ IV STA (11:24)
--- NOTE | 2017-04-25 11:27 | ERD ---
ER Documentation Chief Complaint Chief Complaint pt is bib self with sob, wheezing noted upon arrival , HPI This is a 36-year-old female with a history of asthma, continued tobacco abuse, fibromyalgia who is presenting with 3 days of cough, congestion, wheezing and shortness of breath. The patient thinks that it started out with cold symptoms a few days ago which have lead to her progressive worsening wheezing. The patient denies fever or chills. The patient has had no headache or vision changes. The patient does not endorse neck or back pain. The patient denies lightheadedness or dizziness. The patient has had no chest pain but she does endorse significant chest tightness. The patient denies nausea or vomiting. The patient denies abdominal pain or changes to bowel movements or urination. The patient has had no focal deficits. The patient has had no weakness or numbness or tingling to the face or extremities. ROS All systems reviewed and are negative except as per history of present illness. Medications Home Meds Active Scripts Albuterol Sulfate* (Albuterol Sulfate* Neb) 0.083%-3 Ml Neb, 2.5 MG NEB Q4 Y for SHORTNESS OF BREATH, #30 EA Prov:JOSELITO CORTES 01/25/17 Albuterol Sulfate* (Proair HFA*) 8.5 Gm Hfa.aer.ad, 2 PUFF INH Q4, #1 INHALER 7 Refills Prov:JESSICA CROCKER. 11/29/16 Reported Medications Trazodone Hcl* (Trazodone Hcl*) 100 Mg Tablet, 100 MG PO QHS, #30 TAB 04/25/17 Omeprazole* (Omeprazole*) 20 Mg Capsule.dr, 20 MG PO DAILY, #30 CAP 04/25/17 Montelukast Sodium* (Montelukast Sodium*) 10 Mg Tablet, 10 MG PO QHS, #30 TAB 04/25/17 Amitriptyline Hcl* (Amitriptyline Hcl*) 25 Mg Tablet, 75 MG PO QHS, #30 TAB 04/25/17 Lurasidone Hcl (LATUDA) 80 Mg Tablet, 80 MG PO DAILY, #30 TAB 04/25/17 Hydroxyzine Pamoate* (Hydroxyzine Pamoate*) 25 Mg Capsule, 25 MG PO QHS Y for ANXIETY, #30 CAP 04/25/17 Gabapentin* (Gabapentin*) 300 Mg Capsule, 600 MG PO BID, #180 CAP 04/25/17 Buspirone Hcl* (Buspirone Hcl*) 10 Mg Tab, 10 MG PO BID, TAB 11/26/16 Discontinued Reported Medications Gabapentin* (Gabapentin*) 800 Mg Tablet, 800 MG PO BID, #90 TAB 11/26/16 Hydroxyzine Pamoate* (Hydroxyzine Pamoate*) 25 Mg Capsule, 25-50 MG PO DAILY Y for ANXIETY, #30 CAP 11/26/16 Pantoprazole* (Protonix*) 40 Mg Tablet.dr, 40 MG PO DAILY, TAB 11/26/16 Ramelteon (Rozerem) 8 Mg Tablet, 8 MG PO HS, TAB 11/26/16 Quetiapine Fumarate* (Seroquel*) 300 Mg Tablet, 300 MG PO DAILY, TAB 11/26/16 Lurasidone Hcl (LATUDA) 60 Mg Tablet, 60 MG PO DAILY, #30 TAB 11/26/16 Discontinued Scripts Ondansetron (Ondansetron Odt) 4 Mg Tab.rapdis, 4 MG PO Q6H Y for NAUSEA AND/OR VOMITING, #20 TAB Prov:KATHARINE BROWN PA-C 03/02/17 Dicyclomine Hcl* (Bentyl*) 10 Mg Capsule, 10 MG PO QID, #10 CAP Prov:KATHARINE BROWN PA-C 03/02/17 Sulfamethoxazole/Trimethoprim* (Bactrim Ds* Tablet) 1 Each Tablet, 1 TAB PO BID , #14 TAB Prov:JOSE RAFAEL ARGUETA PA-C 02/13/17 Cephalexin* (Keflex*) 500 Mg Capsule, 500 MG PO QID for 7 Days, CAP Prov:JOSE RAFAEL ARGUETA PA-C 02/13/17 Ibuprofen* (Motrin*) 600 Mg Tab, 600 MG PO Q6, #30 TAB Prov:JOSE RAFAEL ARGUETA PA-C 02/13/17 Albuterol Sulfate* (Proair HFA*) 8.5 Gm Hfa.aer.ad, 2 PUFF INH Q4H Y for WHEEZING AND SOB, #1 INHALER Prov:STEPHEN SAENZ DO 02/06/17 Metronidazole* (Flagyl*) 500 Mg Tablet, 500 MG PO TID for 7 Days, TAB Prov:STEPHEN SAENZ DO 02/06/17 Ciprofloxacin Hcl* (Ciprofloxacin Hcl*) 500 Mg Tablet, 500 MG PO BID for 7 Days , TAB Prov:STEPHEN SAENZ. DO 02/06/17 Prednisone* (Prednisone*) 20 Mg Tab, 60 MG PO DAILY for 5 Days, TAB Prov:STEPHEN SAENZ DO 02/06/17 Epinephrine (Epipen 2-Thierry) 0.3 Mg/0.3 Ml Pen.injctr, 1 EA INJ ONCE Y for ALLERGIC REACTION, #1 EA Prov:STEPHEN SAENZ DO 02/06/17 Famotidine* (Pepcid*) 20 Mg Tablet, 20 MG PO BID for 4 Days, TAB Prov:SOPHIAJOSELITO 01/25/17 Orphenadrine Citrate (Norflex) 100 Mg Tablet.sa, 100 MG PO BID for 7 Days, TAB.SA Prov:JOSELITO CORTES 01/25/17 Tramadol HCl (Tramadol HCl) 50 Mg Tablet, 50 MG PO Q4 Y for PAIN, #20 TAB Prov:SOPHIAJOSELITO Juarez 01/25/17 Polyethylene Glycol* (Miralax*) 17 Gm Powd.pack, 17 GM PO DAILY for 30 Days, 2 Refills Prov:JESSICA CROCKER 11/29/16 Allergies Allergies: Coded Allergies: aspirin (Verified Allergy, Unknown, 02/13/17) divalproex sodium (Verified Allergy, Unknown, 02/13/17) PMhx/Soc History of Surgery: Yes (HYSTO) Anesthesia Reaction: No Hx Neurological Disorder: No Hx Respiratory Disorders: Yes (ASTHMA) Hx Cardiac Disorders: No Hx Psychiatric Problems: Yes (PTSD;PANIC/ANXIETY ATTACKS) Hx Miscellaneous Medical Probl: No Hx Alcohol Use: No Hx Substance Use: No Hx Tobacco Use: Yes FmHx Family History: No diabetes Physical Exam Vitals Vital Signs Date Time Temp Pulse Resp B/P Pulse Ox O2 Delivery O2 Flow Rate FiO2 04/25/17 13:26 108 28 96 Simple Mask 6.0 04/25/17 11:35 91 32 89 21 04/25/17 11:21 100.1 109 32 191/116 93 Physical Exam Const: No apparent distress, well-developed, well-nourished Head: Normocephalic, Atraumatic Eyes: Normal Conjunctiva. Extraocular movements intact. Pupils equal, round and reactive to light ENT: Normal External Ears, Nose and Mouth. Neck: Full range of motion. No meningismus. Resp: Severe diffuse wheezing, no rales or rhonchi Cardio: Tachycardia, Regular rhythm. No murmurs, rubs or gallops Abd: Morbid obesity, soft, non tender, non distended. Normal bowel sounds Skin: No petechiae or rashes Back: No midline tenderness. No CVA tenderness Ext: No cyanosis, or edema Neur: Awake and alert, oriented 4. Cranial nerves intact. No facial droop. Normal strength, sensation and coordination. Psych: Normal Mood and Affect Result Diagram: 04/25/17 1130 04/25/17 1130 Results 24 hrs Laboratory Tests Test 04/25/17 11:30 White Blood Count 9.410^3/ul Red Blood Count 4.9010^6/ul Hemoglobin 15.2g/dl Hematocrit 44.5% Mean Corpuscular Volume 90.8fl Mean Corpuscular Hemoglobin 31.0pg Mean Corpuscular Hemoglobin Concent 34.2g/dl Red Cell Distribution Width 12.7% Platelet Count 22383^3/UL Mean Platelet Volume 10.4fl Neutrophils % 63.6% Lymphocytes % 25.0% Monocytes % 8.8% Eosinophils % 1.7% Basophils % 0.6% Nucleated Red Blood Cells % 0.0/100WBC Neutrophils # 5.910^3/ul Lymphocytes # 2.310^3/ul Monocytes # 0.810^3/ul Eosinophils # 0.210^3/ul Basophils # 0.110^3/ul Nucleated Red Blood Cells # 0.010^3/ul Prothrombin Time 12.1Sec Prothrombin Time Ratio 0.9 INR International Normalized Ratio 0.89 Activated Partial Thromboplast Time 30.0Sec Sodium Level 142mmol/L Potassium Level 4.4mmol/L Chloride Level 105mmol/L Carbon Dioxide Level 26mmol/L Anion Gap 15 Blood Urea Nitrogen 15mg/dl Creatinine 0.97mg/dl Glucose Level 89mg/dl Calcium Level 9.7mg/dl Troponin I < 0.012ng/ml B-Type Natriuretic Peptide 47PG/ML Current Medications Medications (Trade) Dose Ordered Sig/Lupe Route PRN Reason Start Time Stop Time Status Last Admin Dose Admin Ipratropium Shaniko (Atrovent 0.02% (Neb)) 1.5 mg ONCE STAT INH 04/25/17 11:24 04/25/17 11:26 DC 04/25/17 11:35 Albuterol (Proventil 0.5% (Neb)) 15 mg ONCE STAT INH 04/25/17 11:24 04/25/17 11:26 DC 04/25/17 11:33 Methylprednisolone Sodium Succinate 125 mg 125 mg ONCE STAT IV 04/25/17 11:24 04/25/17 11:26 DC 04/25/17 11:37 Magnesium Sulfate (Magnesium Sulfate 2 Gm/50 ml) 50 ml @ 25 mls/hr ONCE ONCE IVPB 04/25/17 11:30 04/25/17 13:29 DC 04/25/17 11:37 Epinephrine (EPINEPHrine) 0.3 mg ONCE STAT SC 04/25/17 11:24 04/25/17 11:26 DC 04/25/17 11:37 Albuterol (Proventil 0.083% (Neb)) 10 mg ONCE STAT HHN 04/25/17 13:12 04/25/17 13:16 DC 04/25/17 13:25 Ketorolac Tromethamine (Toradol) 15 mg ONCE STAT IV 04/25/17 13:18 04/25/17 13:19 DC 04/25/17 13:30 Procedures/MDM MDM The patient's presentation warrants further investigation. She presents with asthma exacerbation related to a URI/bronchitis. LABS The patient's blood work was obtained and reviewed. The patient's CBC shows no leukocytosis and no left shift. The patient is afebrile and does not appear systemically ill. I do not suspect a systemic infection. The patient is not anemic today. The patient's platelet count is unremarkable. The patient's BMP shows no signs of metabolic or electrolyte emergencies. The patient has unremarkable renal function testing. Troponin and BNP are unremarkable. EKG EKG read by me, motion artifact on the EKG Rate/Rhythm: Regular rate and rhythm at a rate of 96 bpm Intervals: Normal Dumas: Normal Impression: No evidence of ischemia or arrhythmia IMAGING CXR Hypoinflated lungs. Scattered atelectasis in the bilateral lower lobes. Haziness at the lung bases that could reflect small pleural effusions. Electronically viewed and signed by .Gregor Gallardo MD, MD on 04/25/2017 12:45 TREATMENT/DISPOSITION Patient has symptoms of an asthma exacerbation. She was given nebulized therapies of albuterol and ipratropium, magnesium iv, solumedrol iv, and epinephrine im. Patient's wheezing persisted. At this time, I feel that the patient requires admission for further evaluation and management. She will require serial treatments to break her bronchospasm. She will also require further education on smoking cessation. The patient will be admitted to Panel in accordance with the patient's insurance. The patient was accepted by Dr. Worrell at 13:21PM on April 25, 2017. The patient's blood pressure was elevated at greater than 120/80 while in the emergency department. The patient was otherwise stable with no evidence of hypertensive urgency or emergency or end organ damage. This may be monitored in the hospital. Disclaimer: Inadvertent spelling and grammatical errors are likely due to EHR/ dictation software use and do not reflect on the overall quality of patient care. Note that the electronic time recorded on this note does not necessarily reflect the actual time of the patient encounter. Departure Diagnosis: Primary Impression: Asthma exacerbation Asthma severity: severe Asthma persistence: persistent Qualified Code: J45.51 - Severe persistent asthma with exacerbation Additional Impressions: Dyspnea Dyspnea type: acute respiratory distress Qualified Code: R06.03 - Acute respiratory distress URI (upper respiratory infection) URI type: unspecified URI Qualified Code: J06.9 - Upper respiratory tract infection, unspecified type Condition: Serious FLACO PERERA MD Apr 25, 2017 11:27 Montelukast Sodium (Singulair) 10 mg QHS PO 04/25/17 21:00 Procedures/MDM MDM The patient's presentation warrants further investigation. LABS The patient's blood work was obtained and reviewed. The patient's CBC shows [no ] leukocytosis and [no] left shift. The patient is afebrile and does not appear systemically ill. I do [not] suspect a systemic infection. The patient is [not] anemic today. The patient's platelet count is unremarkable. The patient's CMP shows no signs of metabolic or electrolyte emergencies. The patient has unremarkable renal and hepatic function testing. EKG EKG read by me, motion artifact on the EKG Rate/Rhythm: Regular rate and rhythm at a rate of 96 bpm Intervals: Normal Dumas: Normal Impression: No evidence of ischemia or arrhythmia IMAGING [] TREATMENT/DISPOSITION [] [] At this time, I feel that the patient stable for discharge. The patient will need follow-up with his primary care physician in 2-3 days. The patient will be given strict precautions with which to return to the emergency department. [] At this time, I feel that the patient requires admission for further evaluation and management. The patient will be admitted to [Panel] in accordance with the patient's insurance. The patient was accepted by [] at []. [] The patient's blood pressure was elevated at greater than 120/80 while in the emergency department. The patient was otherwise stable with no evidence of hypertensive urgency or emergency or end organ damage. The patient does not require admission for blood pressure control. I have discussed with the patient the risks of hypertension. I have advised the patient to follow up with the primary care physician for outpatient monitoring and treatment for hypertension in 2-3 days. I have instructed the patient to return to the ER for any new or worsening symptoms including chest pain, shortness of breath, headache, blurred vision, confusion, nausea, vomiting or LOC. Disclaimer: Inadvertent spelling and grammatical errors are likely due to EHR/ dictation software use and do not reflect on the overall quality of patient care. Note that the electronic time recorded on this note does not necessarily reflect the actual time of the patient encounter. FLACO PERERA MD Apr 25, 2017 11:27
[2017-04-25] MEDS ORDERED: MAGNESIUM SULFATE 2 GM/50 ML 50 ML IVPB ONE (11:30)
[2017-04-25 11:54] LABS: BASOPHIL # 0.1 10^3/ul (0.0-0.1); BASOPHILS % 0.6 % (0.0-2.0); EOSINOPHILS # 0.2 10^3/ul (0.0-0.5); EOSINOPHILS % 1.7 % (0.0-7.0); HEMATOCRIT 44.5 % (37.0-47.0); HEMOGLOBIN 15.2 g/dl (12.0-16.0); LYMPHOCYTES # 2.3 10^3/ul (0.8-2.9); MEAN CORPUSCULAR HGB CONC 34.2 g/dl (32.0-37.0); MEAN CORPUSCULAR VOLUME 90.8 fl (82.0-101.0); MEAN PLATELET VOLUME 10.4 fl (7.4-10.4); MONOCYTE # 0.8 10^3/ul (0.3-0.9); MONOCYTES % 8.8 % (0.0-11.0); NEUTROPHIL # 5.9 10^3/ul (1.6-7.5); NEUTROPHILS % 63.6 % (39.0-77.0); PLATELET COUNT 268 10^3/UL (140-415); RED CELL DISTRIBUTION WIDTH 12.7 % (11.5-14.5); WHITE BLOOD COUNT 9.4 10^3/ul (4.8-10.8)
[2017-04-25 12:12] LABS: INR 0.89; PROTIME 12.1 Sec (11.9-14.9); PT RATIO 0.9
[2017-04-25 12:14] LABS: ANION GAP 15 (8-16); BLOOD UREA NITROGEN 15 mg/dl (7-20); CALCIUM 9.7 mg/dl (8.4-10.2); CARBON DIOXIDE 26 mmol/L (21-31); CHLORIDE 105 mmol/L (97-110); CREATININE 0.97 mg/dl (0.44-1.00); GLUCOSE 89 mg/dl (70-220); POTASSIUM 4.4 mmol/L (3.5-5.1); SODIUM 142 mmol/L (135-144)
[2017-04-25 12:27] LABS: TROPONIN-I < 0.012 ng/ml (0.00-0.12)
--- NOTE | 2017-04-25 12:45 | RADRPT ---
PROCEDURE: XR Chest 1 View. CLINICAL INDICATION: Shortness of breath. TECHNIQUE: Single view of the chest was obtained. COMPARISON: CHEST 11/26/2016 FINDINGS: The cardiomediastinal silhouette is within normal limits. The lungs are hypoinflated. Scattered atel ectasis is noted in the bilateral lower lobes. Haziness at the lung bases could reflect small pleura l effusions. Osseous structures are intact. IMPRESSION: Hypoinflated lungs. Scattered atelectasis in the bilateral lower lobes. Haziness at the lung bases that could reflect small pleural effusions. RPTAT: AA .Gregor Gallardo MD, MD Date Time Electronically viewed and signed by .Gregor Gallardo MD, on 04/25/2017 12:45 .P/
[2017-04-25] MEDS ORDERED: GABA300C16 PO (12:54)
[2017-04-25] MEDS ORDERED: HYDR25CA98 PO (12:55)
[2017-04-25] MEDS ORDERED: LURA80TA PO (12:56)
[2017-04-25] MEDS ORDERED: AMIT25TA9 PO (13:04)
[2017-04-25] MEDS ORDERED: MONT10TA24 PO (13:04)
[2017-04-25] MEDS ORDERED: OMEP20CA16 PO (13:05)
[2017-04-25] MEDS ORDERED: TRAZ100T15 PO (13:05)
[2017-04-25] MEDS ORDERED: ALBUTEROL 0.083% (NEB) 2.5 MG/3 ML AMP HHN STA (13:12)
[2017-04-25] MEDS ORDERED: KETOROLAC 15 MG INJ IV STA (13:18)
--- NOTE | 2017-04-25 13:43 | HP ---
Date/Time of Note Date/Time of Note DATE: 04/25/17 TIME: 13:43 Assessment/Plan VTE Prophylaxis VTE Prophylaxis Intervention: LMWH Assessment/Plan Chief Complaint/Hosp Course 1. Asthma exacerbation. -Inhaled bronchodilators. -Tapering dose of steroids. -Leukotriene inhibitors. -Supplemental O2 as needed. -ABG 2. Fibromyalgia. -Resume gabapentin. 3. Psychiatric disorder. -Resume psych medications. 4. Nicotine use. -Cessation counseling. 5. Morbid obesity. -BMI 49.0 kg/m. -Weight reduction advice. Plan: The patient will be admitted to inpatient telemetry floor. The patient will be started on a regular diet. The patient will be started on DVT prophylaxis . The patient will remain a full code. Activities will be as tolerated. The rest of the patient's management will be based on the clinical course and the results of diagnostic studies. Based on the patient's clinical presentation, she most probably requires at least 2 midnights' stay for further management and evaluation of her clinical presentation. The case and management of this patient was fully discussed with Dr. Worrell. Problems: HPI/ROS Admit Date/Time Admit Date/Time Hx of Present Illness Reason for admission: Shortness of breath. This is a 36-year-old female with past medical history of asthma, fibromyalgia, obesity, and psychiatric disorder who came to the emergency room with chief complaint of dyspnea, wheezing, and productive cough that has been going on for the past 3 days and getting worse. The patient has prior history of multiple hospitalizations for asthma attacks. The patient was complaining of fevers and chills. The patient denied any sick contacts. The patient was complaining of generalized body aches. The patient denied any nausea or vomiting. She denied any dysuria. In the emergency room, the patient was noticed to be in severe respiratory distress. The patient was treated with a single dose of IV Solu-Medrol, single dose of subcutaneous epinephrine, IV magnesium, and inhaled bronchodilators. The patient's chest x-ray showed hypoinflated lungs with scattered atelectasis in the bilateral lower lobes with haziness at the lung bases. The patient had a temperature 100.1F. Her WBC was within normal limits. ROS Constitutional: chills, febrile Eyes: no complaints ENT: no complaints Respiratory: cough, pleuritic pain, shortness of breath, sputum Cardiovascular: no complaints Gastrointestinal: no complaints Genitourinary: no complaints Musculoskeletal: other (Generalized body aches) Skin: no complaints Neurologic: no complaints Endocrine: no complaints Lymphatic: no complaints Psychological: anxiety Immunologic: no complaints PMH/Family/Social Past Medical History Medical History: other (Asthma, obesity, cervical cancer, fibromyalgia, psychiatric disorder.) Past Surgical History Past Surgical Hx: other (Hysterectomy) Social History Alcohol Use: occasionally Smoking Status: Current every day smoker Drug Use: none Exam/Review of Systems Vital Signs Vitals Vital Signs Date Time Temp Pulse Resp B/P Pulse Ox O2 Delivery O2 Flow Rate FiO2 04/25/17 13:26 108 28 96 Simple Mask 6.0 04/25/17 11:35 21 04/25/17 11:21 100.1 191/116 Exam Exam General: Morbidly obese 36 year-old female lying in bed in moderate respiratory distress. HEENT: Normocephalic, atraumatic. Eyes: Anicteric sclerae, conjunctivae clear. ENT: Nasal septum midline, oral mucosa is dry. Neck short and obese. Respiratory: Bilaterally diminished breath sounds. Use of accessory muscles of respiration. B/L expiratory wheezing. Cardiovascular: S1, S2 heard. Tachycardia. Abdomen: Soft, nontender, and nondistended. Bowel sounds positive in all 4 quadrants. Genitourinary: Deferred. Extremities: No cyanosis, no clubbing, no edema. Peripheral pulses palpable. Neurologic: Cranial nerves II through XII grossly intact. The patient is awake, alert, and oriented. Skin: Normal skin turgor. No skin rashes. Labs Result Diagram: 04/25/17 1130 04/25/17 1130 Medications Medications Current Medications Magnesium Sulfate (Magnesium Sulfate 2 Gm/50 ml) 50 ml @ 25 mls/hr ONCE ONCE IVPB Last administered on 04/25/17t 11:37; Admin Dose 25 MLS/HR; Start at 11:30; Stop 04/25/17 at 13:29 Procedures Procedures CXR IMPRESSION: Hypoinflated lungs. Scattered atelectasis in the bilateral lower lobes. Haziness at the lung bases that could reflect small pleural effusions. NINA MAHONEY NP Apr 25, 2017 13:43
[2017-04-25] MEDS ORDERED: ONDANSETRON 4 MG INJ IV PRN ×2 (14:00)
[2017-04-25] MEDS ORDERED: NACL 0.9% 3 ML SYG IV SCH (14:00)
[2017-04-25] MEDS ORDERED: ACETAMINOPHEN 325 MG TAB PO PRN ×2 (14:00)
[2017-04-25] MEDS: METHYLPREDNISOLONE 125 MG INJ IV SCH ×2 (14:50→21:24)
[2017-04-25] MEDS: HYDROCODONE/APAP (5/325) TAB PO PRN (14:54)
[2017-04-25 14:56] VITALS: TEMP 99.5
[2017-04-25 17:15] VITALS: BP 122/64; PULSE 111; RESP 18
[2017-04-25 17:35] VITALS: Ht 177.8 cm; Wt 144.0 kg
[2017-04-25] MEDS: ALBUTEROL/IPRATROPIUM (NEB) 3 ML AMP HHN SCH ×2 (17:35→20:15)
[2017-04-25] MEDS: morphine 4 MG/ML VIAL IV PRN ×2 (17:53→21:24)
[2017-04-25 17:55] VITALS: PULSE 108
[2017-04-25 20:00] VITALS: BP 134/83; PULSE 113; RESP 20
[2017-04-25] MEDS: MONTELUKAST 10 MG TAB PO SCH (21:24)
[2017-04-25] MEDS: GABAPENTIN 300 MG CAP PO SCH (21:24)
[2017-04-25] MEDS: AMITRIPTYLINE 25 MG TAB PO SCH (22:27)
[2017-04-26] VITALS (20 sets, daily range): BP systolic 112–152; BP diastolic 55–109; PULSE 91–110; RESP 13–25
[2017-04-26] MEDS: ALBUTEROL/IPRATROPIUM (NEB) 3 ML AMP HHN SCH ×6 (01:27→20:18)
[2017-04-26 01:44] LABS: BARBITURATES Negative (NEGATIVE); BENZODIAZEPINES Negative (NEGATIVE); CANNABINOIDS Negative (NEGATIVE); COCAINE Negative (NEGATIVE); OPIATES Positive (NEGATIVE)
[2017-04-26] MEDS: ALBUTEROL/IPRATROPIUM (NEB) 3 ML AMP HHN PRN (01:52)
[2017-04-26] MEDS: morphine 4 MG/ML VIAL IV PRN ×4 (01:59→14:03)
[2017-04-26] MEDS ORDERED: POLYETHYLENE GLYCOL 17 GM PACKET PO PRN (06:00)
[2017-04-26 06:06] LABS: BASOPHILS % 0.2 % (0.0-2.0); HEMOGLOBIN 13.8 g/dl (12.0-16.0); LYMPHOCYTES % 8.7 % (15.0-51.0); MEAN CORPUSCULAR HEMOGLOBIN 31.1 pg (29.0-33.0); MEAN CORPUSCULAR HGB CONC 33.7 g/dl (32.0-37.0); MEAN CORPUSCULAR VOLUME 92.3 fl (82.0-101.0); MEAN PLATELET VOLUME 10.3 fl (7.4-10.4); MONOCYTE # 0.3 10^3/ul (0.3-0.9); MONOCYTES % 2.8 % (0.0-11.0); NEUTROPHIL # 10.2 10^3/ul (1.6-7.5); NEUTROPHILS % 87.4 % (39.0-77.0); PLATELET COUNT 257 10^3/UL (140-415); RED BLOOD COUNT 4.44 10^6/ul (4.20-5.40); WHITE BLOOD COUNT 11.6 10^3/ul (4.8-10.8)
[2017-04-26] MEDS: METHYLPREDNISOLONE 125 MG INJ IV SCH ×3 (06:06→21:05)
[2017-04-26 06:32] LABS: CHOL/HDL RATIO 3.3 RATIO
[2017-04-26 06:44] LABS: ALBUMIN 4.2 g/dl (3.3-4.9); ALBUMIN/GLOBULIN RATIO 1.5; BILIRUBIN,INDIRECT 0.1 mg/dl (0-1.1); BILIRUBIN,TOTAL 0.1 mg/dl (0.2-1.3); CALCIUM 8.8 mg/dl (8.4-10.2); CREATININE 0.93 mg/dl (0.44-1.00); POTASSIUM 4.5 mmol/L (3.5-5.1)
[2017-04-26 07:06] LABS: MAGNESIUM 1.9 mg/dl (1.7-2.5); PHOSPHORUS 4.5 mg/dl (2.5-4.9)
[2017-04-26] MEDS: DOCUSATE SODIUM 100 MG CAP PO SCH ×2 (08:32→21:05)
[2017-04-26] MEDS: GABAPENTIN 300 MG CAP PO SCH ×2 (08:32→21:05)
[2017-04-26] MEDS: ENOXAPARIN 40 MG/0.4 ML SYG SC SCH (08:38)
--- NOTE | 2017-04-26 09:19 | PN ---
Date/Time of Note Date/Time of Note DATE: 04/26/17 TIME: 09:17 Assessment/Plan VTE Prophylaxis VTE Prophylaxis Intervention: LMWH Lines/Catheters IV [facility]from [facility] Urinary Cath still in place: No Assessment/Plan Chief Complaint/Hosp Course 1. Asthma exacerbation. -Inhaled bronchodilators. -Tapering dose of steroids. -Leukotriene inhibitors. -Supplemental O2 as needed. 2. Fibromyalgia. -Continue gabapentin. 3. Psychiatric disorder. -Continue psych medications. 4. Nicotine use. -Cessation counseling. 5. Morbid obesity. -BMI 49.0 kg/m. -Weight reduction advice. 6. Fluids, electrolytes, and nutrition. -Regular diet. 7. DVT prophylaxis. -Subcutaneous Lovenox. 8. Plan. -Continue tapering dose of steroids. -Continue inhaled bronchodilators. -Await clinical improvement. The case and management of this patient was fully discussed with Dr. Worrell. Problems: Subjective 24 Hr Interval Summary Free Text/Dictation Patient continues to have significant wheezing. Complaints of cough that was productive, now became nonproductive. Constipated. Exam/Review of Systems Vital Signs Vitals Vital Signs Date Time Temp Pulse Resp B/P Pulse Ox O2 Delivery O2 Flow Rate FiO2 04/26/17 08:35 98 04/26/17 08:21 98 10.0 04/26/17 08:19 20 Simple Mask 04/26/17 07:40 97.9 112/55 04/25/17 11:35 21 Intake and Output 04/25/17 04/25/17 04/26/17 15:00 23:00 07:00 Intake Total 800 ml Balance 800 ml Exam General: Morbidly obese 36 year-old female lying in bed in mild to moderate respiratory distress. HEENT: Normocephalic, atraumatic. Eyes: Anicteric sclerae, conjunctivae clear. ENT: Nasal septum midline, oral mucosa is dry. Neck short and obese. Respiratory: Bilaterally diminished breath sounds. Use of accessory muscles of respiration. B/L expiratory wheezing. Cardiovascular: S1, S2 heard. Tachycardia. Abdomen: Soft, nontender, and nondistended. Bowel sounds positive in all 4 quadrants. Genitourinary: Deferred. Extremities: No cyanosis, no clubbing, no edema. Peripheral pulses palpable. Neurologic: Cranial nerves II through XII grossly intact. The patient is awake, alert, and oriented. Skin: Normal skin turgor. No skin rashes. Results Result Diagram: 04/26/17 0545 04/26/17 0544 Results 24 hrs Laboratory Tests Test 04/25/17 11:30 04/25/17 23:40 04/26/17 05:44 04/26/17 05:45 White Blood Count 9.4 11.6 #H Red Blood Count 4.90 4.44 Hemoglobin 15.2 13.8 Hematocrit 44.5 41.0 Mean Corpuscular Volume 90.8 92.3 Mean Corpuscular Hemoglobin 31.0 31.1 Mean Corpuscular Hemoglobin Concent 34.2 33.7 Red Cell Distribution Width 12.7 13.0 Platelet Count 268 257 Mean Platelet Volume 10.4 10.3 Neutrophils % 63.6 87.4 H Lymphocytes % 25.0 8.7 L Monocytes % 8.8 2.8 Eosinophils % 1.7 0.0 Basophils % 0.6 0.2 Nucleated Red Blood Cells % 0.0 0.0 Neutrophils # 5.9 10.2 H Lymphocytes # 2.3 1.0 Monocytes # 0.8 0.3 Eosinophils # 0.2 0.0 Basophils # 0.1 0.0 Nucleated Red Blood Cells # 0.0 0.0 Prothrombin Time 12.1 Prothrombin Time Ratio 0.9 INR International Normalized Ratio 0.89 Activated Partial Thromboplast Time 30.0 Sodium Level 142 141 Potassium Level 4.4 4.5 Chloride Level 105 104 Carbon Dioxide Level 26 24 Anion Gap 15 18 H Blood Urea Nitrogen 15 16 Creatinine 0.97 0.93 Glucose Level 89 200 # Calcium Level 9.7 8.8 Troponin I < 0.012 B-Type Natriuretic Peptide 47 Urine Test NEGATIVE Urine Opiates Screen Positive Urine Barbiturates Negative Urine Amphetamines Screen Negative Urine Benzodiazepines Screen Negative Urine Cocaine Screen Negative Urine Cannabinoids Negative Total Bilirubin 0.1 L Direct Bilirubin 0.00 Indirect Bilirubin 0.1 Aspartate Amino Transf (AST/SGOT) 41 Alanine Aminotransferase (ALT/SGPT) 92 H Alkaline Phosphatase 81 Total Protein 7.0 Albumin 4.2 Globulin 2.80 Albumin/Globulin Ratio 1.50 Hemoglobin A1c 5.6 Phosphorus Level 4.5 Magnesium Level 1.9 Triglycerides Level 60 Cholesterol Level 186 LDL Cholesterol, Calculated 119 HDL Cholesterol 55 Cholesterol/HDL Ratio 3.3 Medications Medications Current Medications Ondansetron HCl (Zofran Inj) 4 mg Q6H PRN IV NAUSEA AND/OR VOMITING; Start 04/25/17 at 14:00 Acetaminophen (Tylenol Tab) 650 mg Q6H PRN PO PAIN LEVEL 1-3 OR FEVER; Start 04/25/17 at 14:00 Acetaminophen/ Hydrocodone Bitart ([place] (5/325)) 1 tab Q6H PRN PO MODERATE PAIN LEVEL 4-6 Last administered on 04/25/17 14:54; Admin Dose 1 TAB; Start at 14:00 Enoxaparin Sodium (Lovenox) 40 mg DAILY SC Last administered on 04/26/17 08:38 ; Admin Dose 40 MG; Start 04/26/17 at 09:00 Methylprednisolone Sodium Succinate (Solu-Medrol) 60 mg Q8 IV Last administered on 04/26/17 06:06; Admin Dose 60 MG; Start 04/25/17 at 14:00 Amitriptyline HCl (Elavil) 75 mg QHS PO Last administered on 04/25/17 22:27; Admin Dose 75 MG; Start 04/25/17 at 21:00 Gabapentin (Neurontin) 600 mg BID PO Last administered on 04/26/17 08:32; Admin Dose 600 MG; Start 04/25/17 at 21:00 Montelukast Sodium (Singulair) 10 mg QHS PO Last administered on 04/25/17 21: 24; Admin Dose 10 MG; Start 04/25/17 at 21:00 Morphine Sulfate (morphine) 3 mg Q4H PRN IV pAIN Last administered on 06:07; Admin Dose 3 MG; Start 04/25/17 at 17:30 Docusate Sodium (Colace) 100 mg BID PO Last administered on 04/26/17 08:32; Admin Dose 100 MG; Start 04/26/17 at 09:00 Polyethylene Glycol (Miralax) 17 gm DAILY PRN PO CONSTIPATION Last administered on 04/26/17 06:41; Admin Dose 17 GM; Start 04/26/17 at 06:00 NINA MAHONEY NP Apr 26, 2017 09:19 NINA MAHONEY NP Apr 26, 2017 09:19 NINA MAHONEY NP Apr 26, 2017 09:19
[2017-04-26] MEDS ORDERED: POLYETHYLENE GLYCOL 17 GM PACKET PO SCH (10:00)
[2017-04-26] MEDS: GUAIFENESIN 20 MG/ML 5ML CUP PO PRN (10:41)
[2017-04-26] MEDS ORDERED: IPRATROPIUM (NEB) 0.5 MG/2.5 ML AMP HHN PRN (16:30)
[2017-04-26] MEDS ORDERED: MAGNESIUM SULFATE 2 GM/50 ML 50 ML IVPB ONE (17:30)
[2017-04-26 17:42] LABS: Allen Test ACCEPTAB; Arterial Base Excess 0.9 mmol/L (-3.0-3); Arterial COHb 0.1 % (0.0-3.0); Arterial Fraction of Oxyhgb 98.4 % (93.0-99.0); Arterial HCO3 25.4 mmol/L (22.0-26.0); Arterial MetHb 0.1 % (0.0-1.5); Arterial Total Hemglobin 15.4 g/dl (12.0-18.0); MODE MASK - SIMPLE
[2017-04-26] MEDS: morphine 2 MG INJ IV PRN (18:21)
[2017-04-26] MEDS ORDERED: IPRATROPIUM (NEB) 0.5 MG/2.5 ML AMP HHN ONE ×2 (19:40→21:30)
[2017-04-26] MEDS ORDERED: LEVALBUTEROL (NEB) 1.25 MG/0.5 ML AMP HHN ONE ×3 (19:40→21:30)
[2017-04-26] MEDS: AMITRIPTYLINE 25 MG TAB PO SCH (21:05)
[2017-04-26] MEDS: MONTELUKAST 10 MG TAB PO SCH (21:05)
[2017-04-26] MEDS: HYDROCODONE/APAP (5/325) TAB PO PRN (21:53)
[2017-04-27] VITALS (24 sets, daily range): BP systolic 106–149; BP diastolic 50–99; PULSE 85–121; RESP 11–25
[2017-04-27] MEDS ORDERED: IPRATROPIUM (NEB) 0.5 MG/2.5 ML AMP HHN ONE
[2017-04-27] MEDS: morphine 2 MG INJ IV PRN ×2 (00:06→05:47)
--- NOTE | 2017-04-27 00:16 | RADRPT ---
PROCEDURE: XR Chest. CLINICAL INDICATION: Reevaluation. TECHNIQUE: Single frontal view of the chest was obtained. COMPARISON: 04/25/2017. FINDINGS: The cardiomediastinal silhouette appears magnified. There is hazy asymmetric opacification of the right lung. No pleural effusion is seen. No definite pneumothorax. No acute osseous abnormality. IMPRESSION: Hazy asymmetric opacification of the right lung, which could represent asymmetric pulmonary edema ve rsus artifactual due to patient positioning. RPTAT: HPWH Renae Parker Physician Date Time Electronically viewed and signed by Renae Parker Physician on 04/27/2017 00:15 PH/
[2017-04-27] MEDS: ALBUTEROL/IPRATROPIUM (NEB) 3 ML AMP HHN SCH ×6 (01:00→20:30)
[2017-04-27 01:02] LABS: ADD UMIC NO; UR ASCORBIC ACID NEGATIVE (NEGATIVE); UR BILIRUBIN (Dip) NEGATIVE (NEGATIVE); UR BLOOD (Dip) NEGATIVE (NEGATIVE); UR CLARITY CLEAR (CLEAR); UR COLOR YELLOW (YELLOW); UR GLUCOSE (Dip) 1+ mg/dL (NEGATIVE); UR KETONES (Dip) NEGATIVE (NEGATIVE); UR LEUKOCYTE ESTERASE (Dip) NEGATIVE Leu/ul (NEGATIVE); UR NITRITE (Dip) NEGATIVE (NEGATIVE); UR SPECIFIC GRAVITY (Dip) 1.015 (1.003-1.030); UR TOTAL PROTEIN (Dip) NEGATIVE (NEGATIVE); UR UROBILINOGEN (Dip) NEGATIVE (NEGATIVE)
[2017-04-27] MEDS: LORAZEPAM 0.5 MG TAB PO PRN ×3 (01:20→22:12)
[2017-04-27] MEDS ORDERED: LEVOFLOXACIN 750MG/D5W (PMX) 150 ML IVPB ONE (02:00)
[2017-04-27] MEDS: GUAIFENESIN 20 MG/ML 5ML CUP PO PRN ×2 (02:35→12:19)
[2017-04-27] MEDS: METHYLPREDNISOLONE 125 MG INJ IV SCH ×3 (05:29→22:07)
[2017-04-27 06:05] LABS: BASOPHILS % 0.1 % (0.0-2.0); HEMATOCRIT 39.2 % (37.0-47.0); HEMOGLOBIN 13.1 g/dl (12.0-16.0); LYMPHOCYTES # 0.9 10^3/ul (0.8-2.9); LYMPHOCYTES % 7.7 % (15.0-51.0); MEAN CORPUSCULAR HEMOGLOBIN 31.2 pg (29.0-33.0); MEAN CORPUSCULAR HGB CONC 33.4 g/dl (32.0-37.0); MEAN CORPUSCULAR VOLUME 93.3 fl (82.0-101.0); MEAN PLATELET VOLUME 10.3 fl (7.4-10.4); MONOCYTE # 0.8 10^3/ul (0.3-0.9); MONOCYTES % 6.7 % (0.0-11.0); NEUTROPHIL # 10.1 10^3/ul (1.6-7.5); NEUTROPHILS % 84.7 % (39.0-77.0); PLATELET COUNT 262 10^3/UL (140-415); RED CELL DISTRIBUTION WIDTH 13.2 % (11.5-14.5)
[2017-04-27 06:35] LABS: MAGNESIUM 2.2 mg/dl (1.7-2.5); PHOSPHORUS 3.2 mg/dl (2.5-4.9)
[2017-04-27 06:49] LABS: CALCIUM 8.6 mg/dl (8.4-10.2); CREATININE 0.83 mg/dl (0.44-1.00); POTASSIUM 4.4 mmol/L (3.5-5.1)
[2017-04-27] MEDS: DOCUSATE SODIUM 100 MG CAP PO SCH ×2 (08:31→20:34)
[2017-04-27] MEDS: GABAPENTIN 300 MG CAP PO SCH ×2 (08:32→20:34)
[2017-04-27] MEDS: HYDROCODONE/APAP (5/325) TAB PO PRN ×2 (08:32→17:05)
[2017-04-27] MEDS: ENOXAPARIN 40 MG/0.4 ML SYG SC SCH (08:33)
[2017-04-27] MEDS: morphine 4 MG/ML VIAL IV PRN ×3 (10:48→20:34)
[2017-04-27] MEDS ORDERED: GLUCOSE GEL 15 GRAM TUBE PO PRN ×2 (11:00)
[2017-04-27] MEDS ORDERED: GLUCOSE GEL 15 GRAM TUBE BUCCAL PRN (11:00)
[2017-04-27] MEDS ORDERED: GLUCAGON 1 MG INJ IM PRN (11:00)
[2017-04-27] MEDS ORDERED: DEXTROSE 50% 50 ML SYRINGE IV PRN ×2 (11:00)
[2017-04-27] MEDS: GUAIFENESIN LA 600 MG TABSR PO SCH ×2 (12:18→20:34)
[2017-04-27] MEDS: CEPASTAT LOZENGE MT PRN ×2 (12:18→17:08)
[2017-04-27] MEDS: AZITHROMYCIN 500MG/NS (PMX) 250 ML IVPB SCH (12:19)
--- NOTE | 2017-04-27 12:34 | CONS ---
DATE OF ADMISSION: 04/25/2017 DATE OF CONSULTATION: REASON FOR CONSULTATION: Respiratory distress. Thank you, Dr. Crocker, for this consultation. HISTORY OF PRESENT ILLNESS: This is a 36-year-old lady with a longstanding history of asthma, last diffuse exacerbation was several months ago. Previously treated at [facility]. The patien t states she has had several-day history of increasing cough, congestion, difficulty breathing, requ iring increased rescue inhaler use. On admission was noted to have marked hypoxemia and required se veral rounds of continuous bronchodilator therapy. PAST MEDICAL HISTORY: Asthma, no prior intubations. SOCIAL HISTORY: Positive tobacco use. PHYSICAL EXAMINATION: GENERAL: Elderly-appearing lady, appears comfortable at rest, no acute distress. VITAL SIGNS: Currently afebrile, pulse is 90, blood pressure 137/70, O2 saturation 96% on 3 liters. NECK: Supple. No JVD or lymphadenopathy. CARDIAC: S1, S2, no added sounds or murmurs. CHEST: Diminished air entry bilaterally. ABDOMEN: Soft, nontender. No guarding or rebound. EXTREMITIES: No cyanosis, clubbing, edema. NEUROLOGIC: No focal deficits. LABORATORY DATA: White count 12.0, hemoglobin 13.1, platelets 260. BUN 19, creatinine 0.83. INR 0 .89. Chemistry within normal limits. IMPRESSION AND PLAN: 1. Acute asthma exacerbation with significant bronchospasm, now slowly improving. 2. Underlying history of positive tobacco use. The patient will require 1. Continue bronchodilator therapy. 2. Steroid taper. 3. Adjustment of glycemic management. 4. Continue antibiotic therapy. 5. Deep venous thrombosis and gastrointestinal prophylaxis. 6. Outpatient pulmonary function tests and close followup. Dictated By: RONA JEFF/ROSS Conf#: [id number] DID#: [id number] CC: JESSICA CROCKER;*EndCC*
[2017-04-27] MEDS: INSULIN ASPART [NOVOLOG] 3 ML PEN SC SCH ×3 (12:51→20:31)
--- NOTE | 2017-04-27 13:53 | PN ---
Date/Time of Note Date/Time of Note DATE: 04/27/17 TIME: 13:50 Assessment/Plan VTE Prophylaxis VTE Prophylaxis Intervention: LMWH Lines/Catheters [facility] Peripheral IV Urinary Cath still in place: No Assessment/Plan Chief Complaint/Hosp Course Assessment and plan 1. Asthma exacerbation. Remains in ICU for now. Continue bronchodilators. Titrate down on O2 as tolerated. Continue on steroid therapy. f/u pulmonary recs 2. History of fibromyalgia. Continue with gabapentin and analgesics. 3. History of psychiatric disorder. Remained stable at present. Monitor for now. Benzodiazepines as needed. 4. Hyperglycemia secondary to steroid use. Patient placed on insulin regimen. Will adjust as needed. f/u a1c 5. Morbid obesity. Patient noted with BMI 49.0 kg/m. Weight reduction was advised Disposition plan: Follow-up with clearing tub worker recommendations. Continue on bronchodilators and monitor for clinical improvement of respiratory status. Transfer out of ICU once medically stable and cleared by analytical consultant Discussed plan of care with Dr. Singer Problems: Subjective 24 Hr Interval Summary Free Text/Dictation Still noted with some shortness of breath and wheezing. Remains in ICU. RN at bedside. Exam/Review of Systems Vital Signs Vitals Vital Signs Date Time Temp Pulse Resp B/P Pulse Ox O2 Delivery O2 Flow Rate FiO2 04/27/17 12:33 95 3.0 04/27/17 12:33 102 16 Nasal Cannula 04/27/17 12:00 98.7 121/73 04/26/17 21:18 40 Intake and Output 04/26/17 04/26/17 04/27/17 15:00 23:00 07:00 Intake Total 350 ml 600 ml Output Total 300 ml 700 ml Balance 50 ml -100 ml Exam Constitutional: alert, obese, oriented Psych: nl mood/affect Head: normocephalic Neck: non-tender, supple Respiratory: wheezing Cardiovascular: other (Regular rate) Gastrointestinal: non-tender, soft Musculoskeletal: No swelling Neurological: CARD SERVICES SPECIALIST II-XII intact, nl mental status, nl speech Skin: nl turgor Results Result Diagram: 04/27/17 0533 04/27/1733 Results 24 hrs Laboratory Tests Test 04/26/17 16:41 04/27/17 00:00 04/27/17 05:33 04/27/17 12:49 Blood Gas Specimen Source Blood arterial Arterial Blood Date Drawn 04/26/2017 5:20:05 PM Arterial Blood pH (Temp corrected) 7.420 Arterial Blood pCO2 (Temp correct) 40.0 Arterial Blood pO2 (Temp corrected) 131.2 H Arterial Blood HCO3 25.4 Arterial Blood Base Excess 0.9 Arterial Blood Oxygen Saturation 98.6 H Branden Test ACCEPTAB Arterial Blood Gas Puncture Site Left Radial Arterial Blood Carboxyhemoglobin 0.1 Arterial Blood Methemoglobin 0.1 Blood Gas A-a O2 Differential 202.0 H Oxyhemoglobin Percent 98.4 Total Hemoglobin 15.4 Blood Gas Temperature 37.0 Blood Gas Modality MASK - SIMPLE FiO2 53.0 Blood Gas Notified Whom DT Blood Gas Notified Time 04/26/2017 5:41:21 PM Urine Color YELLOW Urine Clarity CLEAR Urine pH 6.0 Urine Specific [place] 1.015 Urine Ketones NEGATIVE Urine Nitrite NEGATIVE Urine Bilirubin NEGATIVE Urine Urobilinogen NEGATIVE Urine Leukocyte Esterase NEGATIVE Urine Hemoglobin NEGATIVE Urine Glucose 1+ H Urine Total Protein NEGATIVE White Blood Count 12.0 H Red Blood Count 4.20 Hemoglobin 13.1 Hematocrit 39.2 Mean Corpuscular Volume 93.3 Mean Corpuscular Hemoglobin 31.2 Mean Corpuscular Hemoglobin Concent 33.4 Red Cell Distribution Width 13.2 Platelet Count 262 Mean Platelet Volume 10.3 Neutrophils % 84.7 H Lymphocytes % 7.7 L Monocytes % 6.7 Eosinophils % 0.0 Basophils % 0.1 Nucleated Red Blood Cells % 0.0 Neutrophils # 10.1 H Lymphocytes # 0.9 Monocytes # 0.8 Eosinophils # 0.0 Basophils # 0.0 Nucleated Red Blood Cells # 0.0 Sodium Level 140 Potassium Level 4.4 Chloride Level 102 Carbon Dioxide Level 27 Anion Gap 15 Blood Urea Nitrogen 19 Creatinine 0.83 Glucose Level 271 H Calcium Level 8.6 Phosphorus Level 3.2 Magnesium Level 2.2 Bedside Glucose 310 H Medications Medications Current Medications Ondansetron HCl (Zofran Inj) 4 mg Q6H PRN IV NAUSEA AND/OR VOMITING; Start 04/25/17 at 14:00 Acetaminophen (Tylenol Tab) 650 mg Q6H PRN PO PAIN LEVEL 1-3 OR FEVER; Start 04/25/17 at 14:00 Acetaminophen/ Hydrocodone Bitart ([place] (5/325)) 1 tab Q6H PRN PO MODERATE PAIN LEVEL 4-6 Last administered on 04/27/17 08:32; Admin Dose 1 TAB; Start at 14:00 Enoxaparin Sodium (Lovenox) 40 mg DAILY SC Last administered on 04/27/17 08:33 ; Admin Dose 40 MG; Start 04/26/17 at 09:00 Methylprednisolone Sodium Succinate (Solu-Medrol) 60 mg Q8 IV Last administered on 04/27/17 13:13; Admin Dose 60 MG; Start 04/25/17 at 14:00 Amitriptyline HCl (Elavil) 75 mg QHS PO Last administered on 04/26/17 21:05; Admin Dose 75 MG; Start 04/25/17 at 21:00 Gabapentin (Neurontin) 600 mg BID PO Last administered on 04/27/17 08:32; Admin Dose 600 MG; Start 04/25/17 at 21:00 Montelukast Sodium (Singulair) 10 mg QHS PO Last administered on 04/26/17 21: 05; Admin Dose 10 MG; Start 04/25/17 at 21:00 Docusate Sodium (Colace) 100 mg BID PO Last administered on 04/27/17 08:31; Admin Dose 100 MG; Start 04/26/17 at 09:00 Polyethylene Glycol (Miralax) 17 gm DAILY PRN PO CONSTIPATION Last administered on 04/26/17 06:41; Admin Dose 17 GM; Start 04/26/17 at 06:00 Guaifenesin (Robitussin Liquid Cup) 200 mg Q4H PRN PO Cough Last administered on 04/27/17 12:19; Admin Dose 200 MG; Start 04/26/17 at 09:30 Phenol (Cepastat Lozenge) 1 lozenge Q1H PRN MT Sore throat Last administered on 04/27/17 12:18; Admin Dose 1 LOZENGE; Start 04/26/17 at 10:00 Lorazepam (Ativan) 0.5 mg TID PRN PO ANXIETY Last administered on 04/27/17 09: 36; Admin Dose 0.5 MG; Start 04/27/17 at 01:00 Morphine Sulfate (morphine) 3 mg Q4H PRN IV pain Last administered on 10:48; Admin Dose 3 MG; Start 04/27/17 at 10:30 Diagnostic Test (Pha) (Accu-Chek) 1 ea 02 XX ; Start 04/28/17 at 02:00 Miscellaneous Information 1 ea NOTE XX ; Start 04/27/17 at 11:00 Glucose (Glutose) 15 gm Q15M PRN PO DECREASED GLUCOSE; Start 04/27/17 at 11:00 Glucose (Glutose) 22.5 gm Q15M PRN PO DECREASED GLUCOSE; Start 04/27/17 at 11: 00 Dextrose (D50w Syringe) 25 ml Q15M PRN IV DECREASED GLUCOSE; Start 04/27/17 at 11:00 Dextrose (D50w Syringe) 50 ml Q15M PRN IV DECREASED GLUCOSE; Start 04/27/17 at 11:00 Glucagon (Glucagen) 1 mg Q15M PRN IM DECREASED GLUCOSE; Start 04/27/17 at 11:00 Glucose 15 gm 15 gm Q15M PRN BUCCAL DECREASED GLUCOSE; Start 04/27/17 at 11:00 Azithromycin (Zithromax 500mg/ NS (Pmx)) 250 ml @ 250 mls/hr Q24H IVPB Last administered on 04/27/17 12:19; Admin Dose 250 MLS/HR; Start 04/27/17 at 11:00 Guaifenesin (Mucinex) 600 mg BID PO Last administered on 04/27/17 12:18; Admin Dose 600 MG; Start 04/27/17 at 11:00 DERRELL BONE Apr 27, 2017 13:53
[2017-04-27] MEDS: ALBUTEROL/IPRATROPIUM (NEB) 3 ML AMP HHN PRN (14:51)
[2017-04-27] MEDS: AMITRIPTYLINE 25 MG TAB PO SCH (20:34)
[2017-04-27] MEDS: MONTELUKAST 10 MG TAB PO SCH (20:34)
[2017-04-28] VITALS (24 sets, daily range): BP systolic 98–164; BP diastolic 43–101; PULSE 81–118; RESP 9–20
[2017-04-28] MEDS: ALBUTEROL/IPRATROPIUM (NEB) 3 ML AMP HHN SCH ×5 (00:39→16:32)
[2017-04-28] MEDS: morphine 4 MG/ML VIAL IV PRN ×6 (01:12→21:06)
--- NOTE | 2017-04-28 01:50 | RADRPT ---
PROCEDURE: XR Chest. CLINICAL INDICATION: Pleural effusion. TECHNIQUE: Single frontal view of the chest. COMPARISON: Plain film chest dated 04/27/2017. FINDINGS: The cardiomediastinal silhouette is within normal limits. Hypoinflated lungs and portable technique accentuate pulmonary vascular markings. The lungs are clear. Evaluation of the left costophrenic ang le is limited secondary to overlying soft tissue and court monitor leads. PA and lateral views of the chest may be more sensitive and specific. Otherwise, no signs of pleural fluid or pneumothorax a re seen. The osseous structures and soft tissues are unremarkable. IMPRESSION: 1. No evident pleural effusion. 2. No evidence for active cardiopulmonary disease. 3. PA and lateral views of the chest may be more sensitive and specific for evaluation. RPTAT: [facility] Physician Edward Date Time Electronically viewed and signed by Physician Edward on 04/28/2017 01:49 RS/
[2017-04-28] MEDS: ACCU-CHEK XX SCH (02:00)
[2017-04-28] MEDS ORDERED: ACCU-CHEK XX SCH (02:00)
[2017-04-28] MEDS: METHYLPREDNISOLONE 125 MG INJ IV SCH ×3 (05:04→18:25)
[2017-04-28 06:54] LABS: BASOPHILS % 0.2 % (0.0-2.0); HEMATOCRIT 40.3 % (37.0-47.0); HEMOGLOBIN 13.4 g/dl (12.0-16.0); LYMPHOCYTES # 1.4 10^3/ul (0.8-2.9); LYMPHOCYTES % 12.8 % (15.0-51.0); MEAN CORPUSCULAR HEMOGLOBIN 31.2 pg (29.0-33.0); MEAN CORPUSCULAR HGB CONC 33.3 g/dl (32.0-37.0); MEAN CORPUSCULAR VOLUME 93.7 fl (82.0-101.0); MEAN PLATELET VOLUME 10.5 fl (7.4-10.4); MONOCYTE # 0.7 10^3/ul (0.3-0.9); MONOCYTES % 6.3 % (0.0-11.0); NEUTROPHIL # 8.9 10^3/ul (1.6-7.5); NEUTROPHILS % 79.5 % (39.0-77.0); PLATELET COUNT 250 10^3/UL (140-415); RED CELL DISTRIBUTION WIDTH 13.3 % (11.5-14.5); WHITE BLOOD COUNT 11.1 10^3/ul (4.8-10.8)
[2017-04-28 07:24] LABS: CALCIUM 8.5 mg/dl (8.4-10.2); CREATININE 0.8 mg/dl (0.44-1.00); POTASSIUM 4.1 mmol/L (3.5-5.1)
[2017-04-28] MEDS: GABAPENTIN 300 MG CAP PO SCH ×2 (08:24→21:00)
[2017-04-28] MEDS: DOCUSATE SODIUM 100 MG CAP PO SCH ×2 (08:24→21:00)
[2017-04-28] MEDS: GUAIFENESIN LA 600 MG TABSR PO SCH ×2 (08:24→21:00)
[2017-04-28] MEDS: INSULIN ASPART [NOVOLOG] 3 ML PEN SC SCH ×4 (08:26→21:04)
[2017-04-28] MEDS: ENOXAPARIN 40 MG/0.4 ML SYG SC SCH (08:26)
[2017-04-28] MEDS ORDERED: RACEPINEPHRINE 2.25%(NEB) 0.5 ML AMP HHN ONE (09:00)
--- NOTE | 2017-04-28 09:55 | CONS ---
Date/Time of Note Date/Time of Note DATE: 04/28/17 TIME: 09:54 Consult Date/Type/Reason Admit Date/Time Apr 25, 2017 at 13:33 Initial Consult Date Type of Consultation: Pulmonary Subjective Still with significant shortness of breath audible upper airway noise. Objective Vital Signs Date Time Temp Pulse Resp B/P Pulse Ox O2 Delivery O2 Flow Rate FiO2 04/28/17 09:00 101 12 129/87 95 Nasal Cannula 3.0 04/28/17 08:00 97.6 04/26/17 21:18 40 Intake and Output 04/27/17 04/27/17 04/28/17 15:00 23:00 07:00 Intake Total 1730 ml 1990 ml 800 ml Output Total 3200 ml 1950 ml 750 ml Balance -1470 ml 40 ml 50 ml Exam PHYSICAL EXAMINATION: GENERAL: Elderly-appearing lady, appears comfortable at rest, no acute distress. VITAL SIGNS: As above. NECK: Supple. No JVD or lymphadenopathy. CARDIAC: S1, S2, no added sounds or murmurs. CHEST: Diminished air entry bilaterally. ABDOMEN: Soft, nontender. No guarding or rebound. EXTREMITIES: No cyanosis, clubbing, edema. NEUROLOGIC: No focal deficits. Results/Medications Result Diagram: 04/28/17 0612 04/28/17 0612 Results 24 hrs Laboratory Tests Test 04/27/17 12:49 04/27/17 17:12 04/27/17 20:25 04/28/17 06:12 Bedside Glucose 310 H 207 225 H White Blood Count 11.1 H Red Blood Count 4.30 Hemoglobin 13.4 Hematocrit 40.3 Mean Corpuscular Volume 93.7 Mean Corpuscular Hemoglobin 31.2 Mean Corpuscular Hemoglobin Concent 33.3 Red Cell Distribution Width 13.3 Platelet Count 250 Mean Platelet Volume 10.5 H Neutrophils % 79.5 H Lymphocytes % 12.8 L Monocytes % 6.3 Eosinophils % 0.0 Basophils % 0.2 Nucleated Red Blood Cells % 0.0 Neutrophils # 8.9 H Lymphocytes # 1.4 Monocytes # 0.7 Eosinophils # 0.0 Basophils # 0.0 Nucleated Red Blood Cells # 0.0 Sodium Level 140 Potassium Level 4.1 Chloride Level 101 Carbon Dioxide Level 29 Anion Gap 14 Blood Urea Nitrogen 19 Creatinine 0.80 Glucose Level 171 # Calcium Level 8.5 Test 04/28/17 08:23 Bedside Glucose 150 Medications Current Medications Ondansetron HCl (Zofran Inj) 4 mg Q6H PRN IV NAUSEA AND/OR VOMITING; Start 04/25/17 at 14:00 Acetaminophen (Tylenol Tab) 650 mg Q6H PRN PO PAIN LEVEL 1-3 OR FEVER; Start 04/25/17 at 14:00 Acetaminophen/ Hydrocodone Bitart ([place] (5/325)) 1 tab Q6H PRN PO MODERATE PAIN LEVEL 4-6 Last administered on 04/27/17 17:05; Admin Dose 1 TAB; Start at 14:00 Enoxaparin Sodium (Lovenox) 40 mg DAILY SC Last administered on 04/28/17 08:26 ; Admin Dose 40 MG; Start 04/26/17 at 09:00 Methylprednisolone Sodium Succinate (Solu-Medrol) 60 mg Q8 IV Last administered on 04/28/17 05:04; Admin Dose 60 MG; Start 04/25/17 at 14:00 Amitriptyline HCl (Elavil) 75 mg QHS PO Last administered on 04/27/17 20:34; Admin Dose 75 MG; Start 04/25/17 at 21:00 Gabapentin (Neurontin) 600 mg BID PO Last administered on 04/28/17 08:24; Admin Dose 600 MG; Start 04/25/17 at 21:00 Montelukast Sodium (Singulair) 10 mg QHS PO Last administered on 04/27/17 20: 34; Admin Dose 10 MG; Start 04/25/17 at 21:00 Docusate Sodium (Colace) 100 mg BID PO Last administered on 04/28/17 08:24; Admin Dose 100 MG; Start 04/26/17 at 09:00 Polyethylene Glycol (Miralax) 17 gm DAILY PRN PO CONSTIPATION Last administered on 04/26/17 06:41; Admin Dose 17 GM; Start 04/26/17 at 06:00 Guaifenesin (Robitussin Liquid Cup) 200 mg Q4H PRN PO Cough Last administered on 04/27/17 12:19; Admin Dose 200 MG; Start 04/26/17 at 09:30 Phenol (Cepastat Lozenge) 1 lozenge Q1H PRN MT Sore throat Last administered on 04/27/17 17:08; Admin Dose 1 LOZENGE; Start 04/26/17 at 10:00 Lorazepam (Ativan) 0.5 mg TID PRN PO ANXIETY Last administered on 04/27/17 22: 12; Admin Dose 0.5 MG; Start 04/27/17 at 01:00 Morphine Sulfate (morphine) 3 mg Q4H PRN IV pain Last administered on 09:21; Admin Dose 3 MG; Start 04/27/17 at 10:30 Diagnostic Test (Pha) (Accu-Chek) 1 ea 02 XX Last administered on 04/28/17 02: 00; Admin Dose 1 EA; Start 04/28/17 at 02:00 Miscellaneous Information 1 ea NOTE XX ; Start 04/27/17 at 11:00 Glucose (Glutose) 15 gm Q15M PRN PO DECREASED GLUCOSE; Start 04/27/17 at 11:00 Glucose (Glutose) 22.5 gm Q15M PRN PO DECREASED GLUCOSE; Start 04/27/17 at 11: 00 Dextrose (D50w Syringe) 25 ml Q15M PRN IV DECREASED GLUCOSE; Start 04/27/17 at 11:00 Dextrose (D50w Syringe) 50 ml Q15M PRN IV DECREASED GLUCOSE; Start 04/27/17 at 11:00 Glucagon (Glucagen) 1 mg Q15M PRN IM DECREASED GLUCOSE; Start 04/27/17 at 11:00 Glucose 15 gm 15 gm Q15M PRN BUCCAL DECREASED GLUCOSE; Start 04/27/17 at 11:00 Azithromycin (Zithromax 500mg/ NS (Pmx)) 250 ml @ 250 mls/hr Q24H IVPB Last administered on 04/27/17 12:19; Admin Dose 250 MLS/HR; Start 04/27/17 at 11:00 Guaifenesin (Mucinex) 600 mg BID PO Last administered on 04/28/17 08:24; Admin Dose 600 MG; Start 04/27/17 at 11:00 Assessment/Plan Chief Complaint/Hosp Course IMPRESSION AND PLAN: 1. Acute asthma exacerbation with significant bronchospasm, now slowly improving. 2. Underlying history of positive tobacco use. The patient will require 1. Continue bronchodilator therapy. 2. Steroid taper. 3. Adjustment of glycemic management. 4. Continue antibiotic therapy. 5. Deep venous thrombosis and gastrointestinal prophylaxis. 6. Outpatient pulmonary function tests and close followup. 7. Trial of racemic epinephrine. Problems: RONA LINDSAY MD, [facility] Apr 28, 2017 09:55
[2017-04-28] MEDS: HYDROCODONE/APAP (5/325) TAB PO PRN (10:11)
[2017-04-28] MEDS: ALBUTEROL/IPRATROPIUM (NEB) 3 ML AMP HHN PRN (10:28)
--- NOTE | 2017-04-28 11:20 | PN ---
Date/Time of Note Date/Time of Note DATE: 04/28/17 TIME: 11:17 Assessment/Plan VTE Prophylaxis VTE Prophylaxis Intervention: LMWH Lines/Catheters IV C[facility]ter Type (from [facility]): Peripheral IV Urinary Cath still in place: No Assessment/Plan Chief Complaint/Hosp Course Assessment and plan 1. Asthma exacerbation. Remains in ICU for now. Continue bronchodilators. Titrate down on O2 as tolerated. Continue on steroid therapy. f/u pulmonary recs 2. History of fibromyalgia. Continue with gabapentin and analgesics. 3. History of psychiatric disorder. Remained stable at present. Monitor for now. Benzodiazepines as needed. 4. Hyperglycemia secondary to steroid use. Patient placed on insulin regimen. a1c: 5.6 5. Morbid obesity. Patient noted with BMI 49.0 kg/m. Weight reduction was advised Disposition plan: still with wheezing, continue bronchodilators. mucolytics added. monitor for improvement. continue icu monitoring Discussed plan of care with Dr. Singer Problems: Subjective 24 Hr Interval Summary Free Text/Dictation still with wheezing and shortness of breath, unchanged Exam/Review of Systems Vital Signs Vitals Vital Signs Date Time Temp Pulse Resp B/P Pulse Ox O2 Delivery O2 Flow Rate FiO2 04/28/17 10:28 92 16 99 Nasal Cannula 3.0 04/28/17 10:00 140/83 04/28/17 08:00 97.6 04/26/17 21:18 40 Intake and Output 04/27/17 04/27/17 04/28/17 14:59 22:59 06:59 Intake Total 1730 ml 1790 ml 1000 ml Output Total 3200 ml 1550 ml 1150 ml Balance -1470 ml 240 ml -150 ml Exam Constitutional: alert, obese, oriented Psych: anxious Head: normocephalic Neck: non-tender, supple Respiratory: wheezing, congested Cardiovascular: other (Regular rate) Gastrointestinal: non-tender, soft Musculoskeletal: No swelling Neurological: SCHOOL SUPERVISOR II-XII intact, nl mental status, nl speech Skin: nl turgor Results Result Diagram: 04/28/1712 04/28/17 0612 Results 24 hrs Laboratory Tests Test 04/27/17 12:49 04/27/17 17:12 04/27/17 20:25 04/28/17 06:12 Bedside Glucose 310 H 207 225 H White Blood Count 11.1 H Red Blood Count 4.30 Hemoglobin 13.4 Hematocrit 40.3 Mean Corpuscular Volume 93.7 Mean Corpuscular Hemoglobin 31.2 Mean Corpuscular Hemoglobin Concent 33.3 Red Cell Distribution Width 13.3 Platelet Count 250 Mean Platelet Volume 10.5 H Neutrophils % 79.5 H Lymphocytes % 12.8 L Monocytes % 6.3 Eosinophils % 0.0 Basophils % 0.2 Nucleated Red Blood Cells % 0.0 Neutrophils # 8.9 H Lymphocytes # 1.4 Monocytes # 0.7 Eosinophils # 0.0 Basophils # 0.0 Nucleated Red Blood Cells # 0.0 Sodium Level 140 Potassium Level 4.1 Chloride Level 101 Carbon Dioxide Level 29 Anion Gap 14 Blood Urea Nitrogen 19 Creatinine 0.80 Glucose Level 171 # Calcium Level 8.5 Test 04/28/17 08:23 Bedside Glucose 150 Medications Medications Current Medications Ondansetron HCl (Zofran Inj) 4 mg Q6H PRN IV NAUSEA AND/OR VOMITING; Start 04/25/17 at 14:00 Acetaminophen (Tylenol Tab) 650 mg Q6H PRN PO PAIN LEVEL 1-3 OR FEVER; Start 04/25/17 at 14:00 Acetaminophen/ Hydrocodone Bitart ([place] (5/325)) 1 tab Q6H PRN PO MODERATE PAIN LEVEL 4-6 Last administered on 04/28/17 10:11; Admin Dose 1 TAB; Start at 14:00 Enoxaparin Sodium (Lovenox) 40 mg DAILY SC Last administered on 04/28/17 08:26 ; Admin Dose 40 MG; Start 04/26/17 at 09:00 Methylprednisolone Sodium Succinate (Solu-Medrol) 60 mg Q8 IV Last administered on 04/28/17 05:04; Admin Dose 60 MG; Start 04/25/17 at 14:00 Amitriptyline HCl (Elavil) 75 mg QHS PO Last administered on 04/27/17 20:34; Admin Dose 75 MG; Start 04/25/17 at 21:00 Gabapentin (Neurontin) 600 mg BID PO Last administered on 04/28/17 08:24; Admin Dose 600 MG; Start 04/25/17 at 21:00 Montelukast Sodium (Singulair) 10 mg QHS PO Last administered on 04/27/17 20: 34; Admin Dose 10 MG; Start 04/25/17 at 21:00 Docusate Sodium (Colace) 100 mg BID PO Last administered on 04/28/17 08:24; Admin Dose 100 MG; Start 04/26/17 at 09:00 Polyethylene Glycol (Miralax) 17 gm DAILY PRN PO CONSTIPATION Last administered on 04/26/17 06:41; Admin Dose 17 GM; Start 04/26/17 at 06:00 Guaifenesin (Robitussin Liquid Cup) 200 mg Q4H PRN PO Cough Last administered on 04/27/17 12:19; Admin Dose 200 MG; Start 04/26/17 at 09:30 Phenol (Cepastat Lozenge) 1 lozenge Q1H PRN MT Sore throat Last administered on 04/27/17 17:08; Admin Dose 1 LOZENGE; Start 04/26/17 at 10:00 Lorazepam (Ativan) 0.5 mg TID PRN PO ANXIETY Last administered on 04/27/17 22: 12; Admin Dose 0.5 MG; Start 04/27/17 at 01:00 Morphine Sulfate (morphine) 3 mg Q4H PRN IV pain Last administered on 09:21; Admin Dose 3 MG; Start 04/27/17 at 10:30 Diagnostic Test (Pha) (Accu-Chek) 1 ea 02 XX Last administered on 04/28/17 02: 00; Admin Dose 1 EA; Start 04/28/17 at 02:00 Miscellaneous Information 1 ea NOTE XX ; Start 04/27/17 at 11:00 Glucose (Glutose) 15 gm Q15M PRN PO DECREASED GLUCOSE; Start 04/27/17 at 11:00 Glucose (Glutose) 22.5 gm Q15M PRN PO DECREASED GLUCOSE; Start 04/27/17 at 11: 00 Dextrose (D50w Syringe) 25 ml Q15M PRN IV DECREASED GLUCOSE; Start 04/27/17 at 11:00 Dextrose (D50w Syringe) 50 ml Q15M PRN IV DECREASED GLUCOSE; Start 04/27/17 at 11:00 Glucagon (Glucagen) 1 mg Q15M PRN IM DECREASED GLUCOSE; Start 04/27/17 at 11:00 Glucose 15 gm 15 gm Q15M PRN BUCCAL DECREASED GLUCOSE; Start 04/27/17 at 11:00 Azithromycin (Zithromax 500mg/ NS (Pmx)) 250 ml @ 250 mls/hr Q24H IVPB Last administered on 04/27/17 12:19; Admin Dose 250 MLS/HR; Start 04/27/17 at 11:00 Guaifenesin (Mucinex) 600 mg BID PO Last administered on 04/28/17 08:24; Admin Dose 600 MG; Start 04/27/17 at 11:00 DERRELL BONE Apr 28, 2017 11:20
[2017-04-28] MEDS: AZITHROMYCIN 500MG/NS (PMX) 250 ML IVPB SCH (12:11)
[2017-04-28] MEDS: LEVALBUTEROL (NEB) 1.25 MG/0.5 ML AMP NEB SCH ×3 (19:17→21:25)
[2017-04-28] MEDS: AMITRIPTYLINE 25 MG TAB PO SCH (21:00)
[2017-04-28] MEDS: MONTELUKAST 10 MG TAB PO SCH (21:00)
[2017-04-28] MEDS: LORAZEPAM 0.5 MG TAB PO PRN (22:44)
[2017-04-29] VITALS (22 sets, daily range): BP systolic 108–154; BP diastolic 69–95; PULSE 84–110; RESP 10–18
[2017-04-29] MEDS: METHYLPREDNISOLONE 125 MG INJ IV SCH ×5 (00:07→23:47)
[2017-04-29] MEDS: ALBUTEROL/IPRATROPIUM (NEB) 3 ML AMP HHN PRN (00:11)
[2017-04-29] MEDS: ALBUTEROL/IPRATROPIUM (NEB) 3 ML AMP HHN SCH ×6 (01:00→20:51)
[2017-04-29] MEDS: ACCU-CHEK XX SCH (02:00)
[2017-04-29] MEDS: morphine 4 MG/ML VIAL IV PRN ×5 (04:00→21:29)
[2017-04-29 05:48] LABS: BASOPHILS % 0.2 % (0.0-2.0); HEMATOCRIT 40.2 % (37.0-47.0); HEMOGLOBIN 13.6 g/dl (12.0-16.0); LYMPHOCYTES # 1.1 10^3/ul (0.8-2.9); LYMPHOCYTES % 10.3 % (15.0-51.0); MEAN CORPUSCULAR HEMOGLOBIN 31.7 pg (29.0-33.0); MEAN CORPUSCULAR HGB CONC 33.8 g/dl (32.0-37.0); MEAN CORPUSCULAR VOLUME 93.7 fl (82.0-101.0); MEAN PLATELET VOLUME 10.2 fl (7.4-10.4); MONOCYTE # 0.5 10^3/ul (0.3-0.9); MONOCYTES % 5.1 % (0.0-11.0); NEUTROPHIL # 8.6 10^3/ul (1.6-7.5); NEUTROPHILS % 82.7 % (39.0-77.0); PLATELET COUNT 265 10^3/UL (140-415); RED BLOOD COUNT 4.29 10^6/ul (4.20-5.40); RED CELL DISTRIBUTION WIDTH 13.2 % (11.5-14.5); WHITE BLOOD COUNT 10.3 10^3/ul (4.8-10.8)
[2017-04-29 06:44] LABS: CALCIUM 9.1 mg/dl (8.4-10.2); CREATININE 0.99 mg/dl (0.44-1.00); POTASSIUM 4.1 mmol/L (3.5-5.1)
[2017-04-29] MEDS: DOCUSATE SODIUM 100 MG CAP PO SCH ×2 (08:13→20:50)
[2017-04-29] MEDS: GABAPENTIN 300 MG CAP PO SCH ×2 (08:13→20:50)
[2017-04-29] MEDS: GUAIFENESIN LA 600 MG TABSR PO SCH ×2 (08:14→20:50)
[2017-04-29] MEDS: ENOXAPARIN 40 MG/0.4 ML SYG SC SCH (08:19)
[2017-04-29] MEDS: INSULIN ASPART [NOVOLOG] 3 ML PEN SC SCH ×4 (08:20→20:58)
--- NOTE | 2017-04-29 10:50 | PN ---
Date/Time of Note Date/Time of Note DATE: 04/29/17 TIME: 10:43 Assessment/Plan VTE Prophylaxis VTE Prophylaxis Intervention: LMWH Lines/Catheters IV C[facility]ter Type (from [facility]): Peripheral IV Urinary Cath still in place: No Assessment/Plan Chief Complaint/Hosp Course Assessment and plan 1. Asthma exacerbation. Remains in ICU for now. Continue bronchodilators. Titrate down on O2 as tolerated. Continue on steroid therapy. f/u pulmonary recs 2. History of fibromyalgia. Continue with gabapentin and analgesics. 3. History of psychiatric disorder. Remained stable at present. Monitor for now. Benzodiazepines as needed. 4. Hyperglycemia secondary to steroid use. Patient placed on insulin regimen. lantus added 5. Morbid obesity. Patient noted with BMI 49.0 kg/m. Weight reduction was advised Disposition plan: still with wheezing and dyspnea, continue pulm regimen. lantus added for better BG control. transfer out o icu once more stable and cleared by device sales consultant Discussed plan of care with Dr. Singer CRITICAL CARE TIME: 30 minutes Problems: Subjective 24 Hr Interval Summary Free Text/Dictation still with some shortness of breath and wheezing Exam/Review of Systems Vital Signs Vitals Vital Signs Date Time Temp Pulse Resp B/P Pulse Ox O2 Delivery O2 Flow Rate FiO2 04/29/17 10:00 97 17 134/74 94 Nasal Cannula 4.0 04/29/17 07:00 98.7 04/26/17 21:18 40 Intake and Output 04/28/17 04/28/17 04/29/17 15:00 23:00 07:00 Intake Total 2340 ml 280 ml 680 ml Output Total 1900 ml 650 ml 650 ml Balance 440 ml -370 ml 30 ml Exam Constitutional: alert, obese, oriented Psych: anxious Head: normocephalic Neck: non-tender, supple Respiratory: wheezing, congested Cardiovascular: other (Regular rate) Gastrointestinal: non-tender, soft Musculoskeletal: No swelling Neurological: [employer] II-XII intact, nl mental status, nl speech Skin: nl turgor Results Result Diagram: 04/29/17 0509 04/29/17 0509 Results 24 hrs Laboratory Tests Test 04/28/17 12:11 04/28/17 17:25 04/28/17 20:59 04/29/17 03:58 Bedside Glucose 117 124 175 200 Test 04/29/17 05:09 04/29/17 08:02 White Blood Count 10.3 Red Blood Count 4.29 Hemoglobin 13.6 Hematocrit 40.2 Mean Corpuscular Volume 93.7 Mean Corpuscular Hemoglobin 31.7 Mean Corpuscular Hemoglobin Concent 33.8 Red Cell Distribution Width 13.2 Platelet Count 265 Mean Platelet Volume 10.2 Neutrophils % 82.7 H Lymphocytes % 10.3 L Monocytes % 5.1 Eosinophils % 0.0 Basophils % 0.2 Nucleated Red Blood Cells % 0.0 Neutrophils # 8.6 H Lymphocytes # 1.1 Monocytes # 0.5 Eosinophils # 0.0 Basophils # 0.0 Nucleated Red Blood Cells # 0.0 Sodium Level 140 Potassium Level 4.1 Chloride Level 100 Carbon Dioxide Level 29 Anion Gap 15 Blood Urea Nitrogen 23 H Creatinine 0.99 Glucose Level 237 H Calcium Level 9.1 Bedside Glucose 204 Medications Medications Current Medications Ondansetron HCl (Zofran Inj) 4 mg Q6H PRN IV NAUSEA AND/OR VOMITING; Start 04/25/17 at 14:00 Acetaminophen (Tylenol Tab) 650 mg Q6H PRN PO PAIN LEVEL 1-3 OR FEVER; Start 04/25/17 at 14:00 Acetaminophen/ Hydrocodone Bitart ([place] (5/325)) 1 tab Q6H PRN PO MODERATE PAIN LEVEL 4-6 Last administered on 04/28/17 10:11; Admin Dose 1 TAB; Start at 14:00 Enoxaparin Sodium (Lovenox) 40 mg DAILY SC Last administered on 04/29/17 08:19 ; Admin Dose 40 MG; Start 04/26/17 at 09:00 Amitriptyline HCl (Elavil) 75 mg QHS PO Last administered on 04/28/17 21:00; Admin Dose 75 MG; Start 04/25/17 at 21:00 Gabapentin (Neurontin) 600 mg BID PO Last administered on 04/29/17 08:13; Admin Dose 600 MG; Start 04/25/17 at 21:00 Montelukast Sodium (Singulair) 10 mg QHS PO Last administered on 04/28/17 21: 00; Admin Dose 10 MG; Start 04/25/17 at 21:00 Docusate Sodium (Colace) 100 mg BID PO Last administered on 04/29/17 08:13; Admin Dose 100 MG; Start 04/26/17 at 09:00 Polyethylene Glycol (Miralax) 17 gm DAILY PRN PO CONSTIPATION Last administered on 04/26/17 06:41; Admin Dose 17 GM; Start 04/26/17 at 06:00 Guaifenesin (Robitussin Liquid Cup) 200 mg Q4H PRN PO Cough Last administered on 04/27/17 12:19; Admin Dose 200 MG; Start 04/26/17 at 09:30 Phenol (Cepastat Lozenge) 1 lozenge Q1H PRN MT Sore throat Last administered on 04/27/17 17:08; Admin Dose 1 LOZENGE; Start 04/26/17 at 10:00 Lorazepam (Ativan) 0.5 mg TID PRN PO ANXIETY Last administered on 04/28/17 22: 44; Admin Dose 0.5 MG; Start 04/27/17 at 01:00 Morphine Sulfate (morphine) 3 mg Q4H PRN IV pain Last administered on 09:03; Admin Dose 3 MG; Start 04/27/17 at 10:30 Diagnostic Test (Pha) (Accu-Chek) 1 ea 02 XX Last administered on 04/28/17 02: 00; Admin Dose 1 EA; Start 04/28/17 at 02:00 Miscellaneous Information 1 ea NOTE XX ; Start 04/27/17 at 11:00 Glucose (Glutose) 15 gm Q15M PRN PO DECREASED GLUCOSE; Start 04/27/17 at 11:00 Glucose (Glutose) 22.5 gm Q15M PRN PO DECREASED GLUCOSE; Start 04/27/17 at 11: 00 Dextrose (D50w Syringe) 25 ml Q15M PRN IV DECREASED GLUCOSE; Start 04/27/17 at 11:00 Dextrose (D50w Syringe) 50 ml Q15M PRN IV DECREASED GLUCOSE; Start 04/27/17 at 11:00 Glucagon (Glucagen) 1 mg Q15M PRN IM DECREASED GLUCOSE; Start 04/27/17 at 11:00 Glucose 15 gm 15 gm Q15M PRN BUCCAL DECREASED GLUCOSE; Start 04/27/17 at 11:00 Azithromycin (Zithromax 500mg/ NS (Pmx)) 250 ml @ 250 mls/hr Q24H IVPB Last administered on 04/28/17 12:11; Admin Dose 250 MLS/HR; Start 04/27/17 at 11:00 Guaifenesin (Mucinex) 600 mg BID PO Last administered on 04/29/17 08:14; Admin Dose 600 MG; Start 04/27/17 at 11:00 Methylprednisolone Sodium Succinate (Solu-Medrol) 125 mg Q6 IV Last administered on 04/29/17 05:57; Admin Dose 125 MG; Start 04/28/17 at 18:30 Famotidine (Pepcid) 20 mg DAILY PO ; Start 04/29/17 at 10:30 DERRELL BONE Apr 29, 2017 10:50
--- NOTE | 2017-04-29 11:11 | CONS ---
Date/Time of Note Date/Time of Note DATE: 04/29/17 TIME: 11:10 Assessment/Plan Assessment/Plan Additional Assessment/Plan Assessment and recommendations; 1. Patient admitted with severe asthma exacerbation with acute bronchitis with clinical improvement overnight. Currently on appropriate bronchodilator regimen. 2. Diabetes. With mild hyperglycemia exacerbated by systemic steroid treatment. Continue current treatment. Consultation Date/Type/Reason Admit Date/Time Apr 25, 2017 at 13:33 Initial Consult Date Type of Consultation: Pulmonary 24 HR Interval Summary Free Text/Dictation Patient's condition is slightly improved compared to yesterday evening. Still complains of shortness of breath and wheezing. Still complains of throat discomfort with coughing. Denies any fever or chills. General exam; young woman, awake and alert. Currently in no respiratory distress. Exam/Review of Systems Vital Signs Vitals Vital Signs Date Time Temp Pulse Resp B/P Pulse Ox O2 Delivery O2 Flow Rate FiO2 04/29/17 10:00 97 17 134/74 94 Nasal Cannula 4.0 04/29/17 07:00 98.7 04/26/17 21:18 40 Intake and Output 04/28/17 04/28/17 04/29/17 15:00 23:00 07:00 Intake Total 2340 ml 280 ml 680 ml Output Total 1900 ml 650 ml 650 ml Balance 440 ml -370 ml 30 ml Exam HEENT exam; supple neck, no JVD. No lymphadenopathy. Midline trachea. No stridor. Pharynx is clear. Patient has fair dentition. Chest exam; bilateral wheezing. S1-S2 audible, no murmurs. Regular rhythm. Tachycardic. Abdomen exam; soft, nontender. Protuberant. Bowel sounds audible. Extremity exam; no edema. No clubbing. [employer] exam; no focal deficit. Results Result Diagram: 04/29/17 0509 04/29/17 0509 Results 24 hrs Laboratory Tests Test 04/28/17 12:11 04/28/17 17:25 04/28/17 20:59 04/29/17 03:58 Bedside Glucose 117 124 175 200 Test 04/29/17 05:09 04/29/17 08:02 White Blood Count 10.3 Red Blood Count 4.29 Hemoglobin 13.6 Hematocrit 40.2 Mean Corpuscular Volume 93.7 Mean Corpuscular Hemoglobin 31.7 Mean Corpuscular Hemoglobin Concent 33.8 Red Cell Distribution Width 13.2 Platelet Count 265 Mean Platelet Volume 10.2 Neutrophils % 82.7 H Lymphocytes % 10.3 L Monocytes % 5.1 Eosinophils % 0.0 Basophils % 0.2 Nucleated Red Blood Cells % 0.0 Neutrophils # 8.6 H Lymphocytes # 1.1 Monocytes # 0.5 Eosinophils # 0.0 Basophils # 0.0 Nucleated Red Blood Cells # 0.0 Sodium Level 140 Potassium Level 4.1 Chloride Level 100 Carbon Dioxide Level 29 Anion Gap 15 Blood Urea Nitrogen 23 H Creatinine 0.99 Glucose Level 237 H Calcium Level 9.1 Bedside Glucose 204 Medications Medications Current Medications Ondansetron HCl (Zofran Inj) 4 mg Q6H PRN IV NAUSEA AND/OR VOMITING; Start 04/25/17 at 14:00 Acetaminophen (Tylenol Tab) 650 mg Q6H PRN PO PAIN LEVEL 1-3 OR FEVER; Start 04/25/17 at 14:00 Acetaminophen/ Hydrocodone Bitart ([place] (5/325)) 1 tab Q6H PRN PO MODERATE PAIN LEVEL 4-6 Last administered on 04/28/17 10:11; Admin Dose 1 TAB; Start at 14:00 Enoxaparin Sodium (Lovenox) 40 mg DAILY SC Last administered on 04/29/17 08:19 ; Admin Dose 40 MG; Start 04/26/17 at 09:00 Amitriptyline HCl (Elavil) 75 mg QHS PO Last administered on 04/28/17 21:00; Admin Dose 75 MG; Start 04/25/17 at 21:00 Gabapentin (Neurontin) 600 mg BID PO Last administered on 04/29/17 08:13; Admin Dose 600 MG; Start 04/25/17 at 21:00 Montelukast Sodium (Singulair) 10 mg QHS PO Last administered on 04/28/17 21: 00; Admin Dose 10 MG; Start 04/25/17 at 21:00 Docusate Sodium (Colace) 100 mg BID PO Last administered on 04/29/17 08:13; Admin Dose 100 MG; Start 04/26/17 at 09:00 Polyethylene Glycol (Miralax) 17 gm DAILY PRN PO CONSTIPATION Last administered on 04/26/17 06:41; Admin Dose 17 GM; Start 04/26/17 at 06:00 Guaifenesin (Robitussin Liquid Cup) 200 mg Q4H PRN PO Cough Last administered on 04/27/17 12:19; Admin Dose 200 MG; Start 04/26/17 at 09:30 Phenol (Cepastat Lozenge) 1 lozenge Q1H PRN MT Sore throat Last administered on 04/27/17 17:08; Admin Dose 1 LOZENGE; Start 04/26/17 at 10:00 Lorazepam (Ativan) 0.5 mg TID PRN PO ANXIETY Last administered on 04/28/17 22: 44; Admin Dose 0.5 MG; Start 04/27/17 at 01:00 Morphine Sulfate (morphine) 3 mg Q4H PRN IV pain Last administered on 09:03; Admin Dose 3 MG; Start 04/27/17 at 10:30 Diagnostic Test (Pha) (Accu-Chek) 1 ea 02 XX Last administered on 04/28/17 02: 00; Admin Dose 1 EA; Start 04/28/17 at 02:00 Miscellaneous Information 1 ea NOTE XX ; Start 04/27/17 at 11:00 Glucose (Glutose) 15 gm Q15M PRN PO DECREASED GLUCOSE; Start 04/27/17 at 11:00 Glucose (Glutose) 22.5 gm Q15M PRN PO DECREASED GLUCOSE; Start 04/27/17 at 11: 00 Dextrose (D50w Syringe) 25 ml Q15M PRN IV DECREASED GLUCOSE; Start 04/27/17 at 11:00 Dextrose (D50w Syringe) 50 ml Q15M PRN IV DECREASED GLUCOSE; Start 04/27/17 at 11:00 Glucagon (Glucagen) 1 mg Q15M PRN IM DECREASED GLUCOSE; Start 04/27/17 at 11:00 Glucose 15 gm 15 gm Q15M PRN BUCCAL DECREASED GLUCOSE; Start 04/27/17 at 11:00 Azithromycin (Zithromax 500mg/ NS (Pmx)) 250 ml @ 250 mls/hr Q24H IVPB Last administered on 04/28/17 12:11; Admin Dose 250 MLS/HR; Start 04/27/17 at 11:00 Guaifenesin (Mucinex) 600 mg BID PO Last administered on 04/29/17 08:14; Admin Dose 600 MG; Start 04/27/17 at 11:00 Methylprednisolone Sodium Succinate (Solu-Medrol) 125 mg Q6 IV Last administered on 04/29/17 05:57; Admin Dose 125 MG; Start 04/28/17 at 18:30 Famotidine (Pepcid) 20 mg DAILY PO ; Start 04/29/17 at 10:30 Insulin Glargine (Lantus) 22 unit DAILY@08 SC ; Start 04/29/17 at 11:00 JASIEL OLIVEIRA Apr 29, 2017 11:11
[2017-04-29] MEDS: FAMOTIDINE 20 MG TAB PO SCH (12:04)
[2017-04-29] MEDS: AZITHROMYCIN 500MG/NS (PMX) 250 ML IVPB SCH (12:04)
[2017-04-29] MEDS: INSULIN GLARGINE [LANtus] 3 ML PEN SC SCH (12:08)
[2017-04-29] MEDS: MONTELUKAST 10 MG TAB PO SCH (20:50)
[2017-04-29] MEDS: AMITRIPTYLINE 25 MG TAB PO SCH (20:50)
[2017-04-30] VITALS (24 sets, daily range): BP systolic 105–163; BP diastolic 47–104; PULSE 77–124; RESP 10–27
[2017-04-30] MEDS: ALBUTEROL/IPRATROPIUM (NEB) 3 ML AMP HHN SCH ×6 (00:52→20:26)
[2017-04-30] MEDS: ACCU-CHEK XX SCH (01:38)
[2017-04-30] MEDS: morphine 4 MG/ML VIAL IV PRN ×5 (02:33→20:42)
[2017-04-30 06:03] LABS: BASOPHILS % 0.3 % (0.0-2.0); HEMOGLOBIN 13.9 g/dl (12.0-16.0); LYMPHOCYTES # 1.5 10^3/ul (0.8-2.9); LYMPHOCYTES % 13.2 % (15.0-51.0); MEAN CORPUSCULAR HEMOGLOBIN 31.3 pg (29.0-33.0); MEAN CORPUSCULAR HGB CONC 33.9 g/dl (32.0-37.0); MEAN CORPUSCULAR VOLUME 92.3 fl (82.0-101.0); MONOCYTE # 0.6 10^3/ul (0.3-0.9); MONOCYTES % 5.1 % (0.0-11.0); NEUTROPHIL # 9.1 10^3/ul (1.6-7.5); NEUTROPHILS % 79.1 % (39.0-77.0); PLATELET COUNT 266 10^3/UL (140-415); RED BLOOD COUNT 4.44 10^6/ul (4.20-5.40); RED CELL DISTRIBUTION WIDTH 12.9 % (11.5-14.5); WHITE BLOOD COUNT 11.5 10^3/ul (4.8-10.8)
[2017-04-30] MEDS: METHYLPREDNISOLONE 125 MG INJ IV SCH ×4 (06:05→23:54)
[2017-04-30 06:27] LABS: CALCIUM 8.7 mg/dl (8.4-10.2); CREATININE 0.82 mg/dl (0.44-1.00); POTASSIUM 4.3 mmol/L (3.5-5.1)
[2017-04-30] MEDS: FAMOTIDINE 20 MG TAB PO SCH (08:15)
[2017-04-30] MEDS: DOCUSATE SODIUM 100 MG CAP PO SCH ×2 (08:15→20:08)
[2017-04-30] MEDS: GUAIFENESIN LA 600 MG TABSR PO SCH ×2 (08:16→20:08)
[2017-04-30] MEDS: GABAPENTIN 300 MG CAP PO SCH ×2 (08:16→20:08)
[2017-04-30] MEDS: ENOXAPARIN 40 MG/0.4 ML SYG SC SCH (08:19)
[2017-04-30] MEDS: INSULIN ASPART [NOVOLOG] 3 ML PEN SC SCH ×4 (08:19→20:13)
[2017-04-30] MEDS: INSULIN GLARGINE [LANtus] 3 ML PEN SC SCH (08:19)
--- NOTE | 2017-04-30 10:30 | PN ---
Date/Time of Note Date/Time of Note DATE: 04/30/17 TIME: 10:21 Assessment/Plan VTE Prophylaxis VTE Prophylaxis Intervention: LMWH Lines/Catheters IV C[facility]ter Type (from [facility]): Peripheral IV Urinary Cath still in place: No Assessment/Plan Chief Complaint/Hosp Course Assessment and plan 1. Asthma exacerbation. Remains in ICU for now. Continue bronchodilators. Titrate down on O2 as tolerated. Continue on steroid therapy. f/u pulmonary recs 2. History of fibromyalgia. Continue with gabapentin and analgesics. 3. History of psychiatric disorder. Remained stable at present. Monitor for now. Benzodiazepines as needed. 4. Hyperglycemia secondary to steroid use. Patient placed on insulin regimen. lantus added 5. Morbid obesity. Patient noted with BMI 49.0 kg/m. Weight reduction was advised Disposition plan: appears to be improving. continue pulmonary regimen. Will get PT consultation . transfer out of ICU when cleared by consultants Discussed plan of care with Dr. Singer CRITICAL CARE TIME: 30 minutes Problems: Subjective 24 Hr Interval Summary Free Text/Dictation still with some shortness of breath but much improved. states she has less cough Exam/Review of Systems Vital Signs Vitals Vital Signs Date Time Temp Pulse Resp B/P Pulse Ox O2 Delivery O2 Flow Rate FiO2 04/30/17 08:00 86 04/30/17 07:00 15 154/93 98 Nasal Cannula 4.0 04/30/17 06:37 33 04/30/17 04:00 98.0 Intake and Output 04/29/17 04/29/17 04/30/17 15:00 23:00 07:00 Intake Total 1250 ml 1250 ml 500 ml Output Total 800 ml 2700 ml 1000 ml Balance 450 ml -1450 ml -500 ml Exam Constitutional: alert, obese Head: normocephalic Eyes: nl conjunctiva Neck: non-tender, supple Respiratory: wheezing Cardiovascular: regular rate and rhythm Gastrointestinal: non-tender, soft Musculoskeletal: No swelling Neurological: [employer] II-XII intact, nl mental status, nl speech Skin: nl turgor Results Result Diagram: 04/30/17 0536 04/30/17 0536 Results 24 hrs Laboratory Tests Test 04/29/17 12:07 04/29/17 17:15 04/29/17 20:54 04/30/17 01:38 Bedside Glucose 156 160 207 131 Test 04/30/17 05:36 04/30/17 08:14 White Blood Count 11.5 H Red Blood Count 4.44 Hemoglobin 13.9 Hematocrit 41.0 Mean Corpuscular Volume 92.3 Mean Corpuscular Hemoglobin 31.3 Mean Corpuscular Hemoglobin Concent 33.9 Red Cell Distribution Width 12.9 Platelet Count 266 Mean Platelet Volume 10.0 Neutrophils % 79.1 H Lymphocytes % 13.2 L Monocytes % 5.1 Eosinophils % 0.0 Basophils % 0.3 Nucleated Red Blood Cells % 0.0 Neutrophils # 9.1 H Lymphocytes # 1.5 Monocytes # 0.6 Eosinophils # 0.0 Basophils # 0.0 Nucleated Red Blood Cells # 0.0 Sodium Level 139 Potassium Level 4.3 Chloride Level 99 Carbon Dioxide Level 32 H Anion Gap 12 Blood Urea Nitrogen 24 H Creatinine 0.82 Glucose Level 168 Calcium Level 8.7 Bedside Glucose 159 Medications Medications Current Medications Ondansetron HCl (Zofran Inj) 4 mg Q6H PRN IV NAUSEA AND/OR VOMITING; Start 04/25/17 at 14:00 Acetaminophen (Tylenol Tab) 650 mg Q6H PRN PO PAIN LEVEL 1-3 OR FEVER; Start 04/25/17 at 14:00 Acetaminophen/ Hydrocodone Bitart ([place] (5/325)) 1 tab Q6H PRN PO MODERATE PAIN LEVEL 4-6 Last administered on 04/28/17 10:11; Admin Dose 1 TAB; Start at 14:00 Enoxaparin Sodium (Lovenox) 40 mg DAILY SC Last administered on 04/30/17 08:19 ; Admin Dose 40 MG; Start 04/26/17 at 09:00 Amitriptyline HCl (Elavil) 75 mg QHS PO Last administered on 04/29/17 20:50; Admin Dose 75 MG; Start 04/25/17 at 21:00 Gabapentin (Neurontin) 600 mg BID PO Last administered on 04/30/17 08:16; Admin Dose 600 MG; Start 04/25/17 at 21:00 Montelukast Sodium (Singulair) 10 mg QHS PO Last administered on 04/29/17 20: 50; Admin Dose 10 MG; Start 04/25/17 at 21:00 Docusate Sodium (Colace) 100 mg BID PO Last administered on 04/30/17 08:15; Admin Dose 100 MG; Start 04/26/17 at 09:00 Polyethylene Glycol (Miralax) 17 gm DAILY PRN PO CONSTIPATION Last administered on 04/26/17 06:41; Admin Dose 17 GM; Start 04/26/17 at 06:00 Guaifenesin (Robitussin Liquid Cup) 200 mg Q4H PRN PO Cough Last administered on 04/27/17 12:19; Admin Dose 200 MG; Start 04/26/17 at 09:30 Phenol (Cepastat Lozenge) 1 lozenge Q1H PRN MT Sore throat Last administered on 04/27/17 17:08; Admin Dose 1 LOZENGE; Start 04/26/17 at 10:00 Lorazepam (Ativan) 0.5 mg TID PRN PO ANXIETY Last administered on 04/28/17 22: 44; Admin Dose 0.5 MG; Start 04/27/17 at 01:00 Morphine Sulfate (morphine) 3 mg Q4H PRN IV pain Last administered on 08:10; Admin Dose 3 MG; Start 04/27/17 at 10:30 Diagnostic Test (Pha) (Accu-Chek) 1 ea 02 XX Last administered on 04/28/17 02: 00; Admin Dose 1 EA; Start 04/28/17 at 02:00 Miscellaneous Information 1 ea NOTE XX ; Start 04/27/17 at 11:00 Glucose (Glutose) 15 gm Q15M PRN PO DECREASED GLUCOSE; Start 04/27/17 at 11:00 Glucose (Glutose) 22.5 gm Q15M PRN PO DECREASED GLUCOSE; Start 04/27/17 at 11: 00 Dextrose (D50w Syringe) 25 ml Q15M PRN IV DECREASED GLUCOSE; Start 04/27/17 at 11:00 Dextrose (D50w Syringe) 50 ml Q15M PRN IV DECREASED GLUCOSE; Start 04/27/17 at 11:00 Glucagon (Glucagen) 1 mg Q15M PRN IM DECREASED GLUCOSE; Start 04/27/17 at 11:00 Glucose 15 gm 15 gm Q15M PRN BUCCAL DECREASED GLUCOSE; Start 04/27/17 at 11:00 Azithromycin (Zithromax 500mg/ NS (Pmx)) 250 ml @ 250 mls/hr Q24H IVPB Last administered on 04/29/17 12:04; Admin Dose 250 MLS/HR; Start 04/27/17 at 11:00 Guaifenesin (Mucinex) 600 mg BID PO Last administered on 04/30/17 08:16; Admin Dose 600 MG; Start 04/27/17 at 11:00 Methylprednisolone Sodium Succinate (Solu-Medrol) 125 mg Q6 IV Last administered on 04/30/17 06:05; Admin Dose 125 MG; Start 04/28/17 at 18:30 Famotidine (Pepcid) 20 mg DAILY PO Last administered on 04/30/17 08:15; Admin Dose 20 MG; Start 04/29/17 at 10:30 Insulin Glargine (Lantus) 22 unit DAILY@08 SC Last administered on 04/30/17 08 :19; Admin Dose 22 UNIT; Start 04/29/17 at 11:00 DERRELL BONE Apr 30, 2017 10:30
--- NOTE | 2017-04-30 11:38 | CONS ---
Date/Time of Note Date/Time of Note DATE: 04/30/17 TIME: 11:36 Assessment/Plan Assessment/Plan Additional Assessment/Plan Assessment and recommendations; 1. Patient admitted with severe asthma exacerbation with interval improvement. 2. Diabetes with mild hyperglycemia, exacerbated by systemic steroid treatment. Continue current treatment. Decrease Solu-Medrol to 80 mg every 6 hours. Consultation Date/Type/Reason Admit Date/Time Apr 25, 2017 at 13:33 Type of Consultation: Pulmonary 24 HR Interval Summary Free Text/Dictation Patient's condition has improved. Shortness of breath also is improving with decreased wheezing. General exam; young female, awake alert, currently in no distress. Exam/Review of Systems Vital Signs Vitals Vital Signs Date Time Temp Pulse Resp B/P Pulse Ox O2 Delivery O2 Flow Rate FiO2 04/30/17 10:00 97 10 133/89 95 Nasal Cannula 4.0 04/30/17 08:00 98.6 04/30/17 06:37 33 Intake and Output 04/29/17 04/29/17 04/30/17 14:59 22:59 06:59 Intake Total 1250 ml 1000 ml 750 ml Output Total 800 ml 1900 ml 1800 ml Balance 450 ml -900 ml -1050 ml Exam HEENT exam; supple neck, no JVD. No lymphadenopathy. Midline trachea. No thyromegaly. Patient has good dentition. Chest exam; mild wheezing. S1-S2 audible, no murmurs. Regular rhythm. Abdomen exam; soft, nontender. No organomegaly. Bowel sounds audible. Extremity exam; no edema. [employer] exam; no focal deficit. Results Result Diagram: 04/30/17 0536 04/30/17 0536 Results 24 hrs Laboratory Tests Test 04/29/17 12:07 04/29/17 17:15 04/29/17 20:54 04/30/17 01:38 Bedside Glucose 156 160 207 131 Test 04/30/17 05:36 04/30/17 08:14 White Blood Count 11.5 H Red Blood Count 4.44 Hemoglobin 13.9 Hematocrit 41.0 Mean Corpuscular Volume 92.3 Mean Corpuscular Hemoglobin 31.3 Mean Corpuscular Hemoglobin Concent 33.9 Red Cell Distribution Width 12.9 Platelet Count 266 Mean Platelet Volume 10.0 Neutrophils % 79.1 H Lymphocytes % 13.2 L Monocytes % 5.1 Eosinophils % 0.0 Basophils % 0.3 Nucleated Red Blood Cells % 0.0 Neutrophils # 9.1 H Lymphocytes # 1.5 Monocytes # 0.6 Eosinophils # 0.0 Basophils # 0.0 Nucleated Red Blood Cells # 0.0 Sodium Level 139 Potassium Level 4.3 Chloride Level 99 Carbon Dioxide Level 32 H Anion Gap 12 Blood Urea Nitrogen 24 H Creatinine 0.82 Glucose Level 168 Calcium Level 8.7 Bedside Glucose 159 Medications Medications Current Medications Ondansetron HCl (Zofran Inj) 4 mg Q6H PRN IV NAUSEA AND/OR VOMITING; Start 04/25/17 at 14:00 Acetaminophen (Tylenol Tab) 650 mg Q6H PRN PO PAIN LEVEL 1-3 OR FEVER; Start 04/25/17 at 14:00 Acetaminophen/ Hydrocodone Bitart ([place] (5/325)) 1 tab Q6H PRN PO MODERATE PAIN LEVEL 4-6 Last administered on 04/28/17 10:11; Admin Dose 1 TAB; Start at 14:00 Enoxaparin Sodium (Lovenox) 40 mg DAILY SC Last administered on 04/30/17 08:19 ; Admin Dose 40 MG; Start 04/26/17 at 09:00 Amitriptyline HCl (Elavil) 75 mg QHS PO Last administered on 04/29/17 20:50; Admin Dose 75 MG; Start 04/25/17 at 21:00 Gabapentin (Neurontin) 600 mg BID PO Last administered on 04/30/17 08:16; Admin Dose 600 MG; Start 04/25/17 at 21:00 Montelukast Sodium (Singulair) 10 mg QHS PO Last administered on 04/29/17 20: 50; Admin Dose 10 MG; Start 04/25/17 at 21:00 Docusate Sodium (Colace) 100 mg BID PO Last administered on 04/30/17 08:15; Admin Dose 100 MG; Start 04/26/17 at 09:00 Polyethylene Glycol (Miralax) 17 gm DAILY PRN PO CONSTIPATION Last administered on 04/26/17 06:41; Admin Dose 17 GM; Start 04/26/17 at 06:00 Guaifenesin (Robitussin Liquid Cup) 200 mg Q4H PRN PO Cough Last administered on 04/27/17 12:19; Admin Dose 200 MG; Start 04/26/17 at 09:30 Phenol (Cepastat Lozenge) 1 lozenge Q1H PRN MT Sore throat Last administered on 04/27/17 17:08; Admin Dose 1 LOZENGE; Start 04/26/17 at 10:00 Lorazepam (Ativan) 0.5 mg TID PRN PO ANXIETY Last administered on 04/28/17 22: 44; Admin Dose 0.5 MG; Start 04/27/17 at 01:00 Morphine Sulfate (morphine) 3 mg Q4H PRN IV pain Last administered on 08:10; Admin Dose 3 MG; Start 04/27/17 at 10:30 Diagnostic Test (Pha) (Accu-Chek) 1 ea 02 XX Last administered on 04/28/17 02: 00; Admin Dose 1 EA; Start 04/28/17 at 02:00 Miscellaneous Information 1 ea NOTE XX ; Start 04/27/17 at 11:00 Glucose (Glutose) 15 gm Q15M PRN PO DECREASED GLUCOSE; Start 04/27/17 at 11:00 Glucose (Glutose) 22.5 gm Q15M PRN PO DECREASED GLUCOSE; Start 04/27/17 at 11: 00 Dextrose (D50w Syringe) 25 ml Q15M PRN IV DECREASED GLUCOSE; Start 04/27/17 at 11:00 Dextrose (D50w Syringe) 50 ml Q15M PRN IV DECREASED GLUCOSE; Start 04/27/17 at 11:00 Glucagon (Glucagen) 1 mg Q15M PRN IM DECREASED GLUCOSE; Start 04/27/17 at 11:00 Glucose 15 gm 15 gm Q15M PRN BUCCAL DECREASED GLUCOSE; Start 04/27/17 at 11:00 Azithromycin (Zithromax 500mg/ NS (Pmx)) 250 ml @ 250 mls/hr Q24H IVPB Last administered on 04/29/17 12:04; Admin Dose 250 MLS/HR; Start 04/27/17 at 11:00 Guaifenesin (Mucinex) 600 mg BID PO Last administered on 04/30/17 08:16; Admin Dose 600 MG; Start 04/27/17 at 11:00 Methylprednisolone Sodium Succinate (Solu-Medrol) 125 mg Q6 IV Last administered on 04/30/17 06:05; Admin Dose 125 MG; Start 04/28/17 at 18:30 Famotidine (Pepcid) 20 mg DAILY PO Last administered on 04/30/17 08:15; Admin Dose 20 MG; Start 04/29/17 at 10:30 Insulin Glargine (Lantus) 22 unit DAILY@08 SC Last administered on 04/30/17 08 :19; Admin Dose 22 UNIT; Start 04/29/17 at 11:00 JASIEL OLIVEIRA Apr 30, 2017 11:38
[2017-04-30] MEDS: AZITHROMYCIN 500MG/NS (PMX) 250 ML IVPB SCH (12:11)
[2017-04-30] MEDS: MONTELUKAST 10 MG TAB PO SCH (20:08)
[2017-04-30] MEDS: AMITRIPTYLINE 25 MG TAB PO SCH (20:09)
[2017-05-01] VITALS (17 sets, daily range): BP systolic 109–147; BP diastolic 61–95; PULSE 71–118; RESP 9–35
[2017-05-01] MEDS: ALBUTEROL/IPRATROPIUM (NEB) 3 ML AMP HHN SCH ×6 (01:29→20:43)
[2017-05-01] MEDS: ACCU-CHEK XX SCH (01:52)
[2017-05-01] MEDS: morphine 4 MG/ML VIAL IV PRN ×4 (01:53→21:16)
[2017-05-01] MEDS: METHYLPREDNISOLONE 125 MG INJ IV SCH ×2 (05:27→11:51)
[2017-05-01 05:44] LABS: BASOPHILS % 0.3 % (0.0-2.0); HEMATOCRIT 42.7 % (37.0-47.0); HEMOGLOBIN 14.4 g/dl (12.0-16.0); LYMPHOCYTES # 1.1 10^3/ul (0.8-2.9); MEAN CORPUSCULAR HGB CONC 33.7 g/dl (32.0-37.0); MEAN PLATELET VOLUME 9.9 fl (7.4-10.4); MONOCYTE # 0.8 10^3/ul (0.3-0.9); MONOCYTES % 6.7 % (0.0-11.0); NEUTROPHIL # 9.2 10^3/ul (1.6-7.5); NEUTROPHILS % 80.3 % (39.0-77.0); PLATELET COUNT 282 10^3/UL (140-415); RED BLOOD COUNT 4.64 10^6/ul (4.20-5.40); RED CELL DISTRIBUTION WIDTH 12.6 % (11.5-14.5); WHITE BLOOD COUNT 11.4 10^3/ul (4.8-10.8)
[2017-05-01 06:22] LABS: CALCIUM 8.9 mg/dl (8.4-10.2); CREATININE 0.86 mg/dl (0.44-1.00); POTASSIUM 4.3 mmol/L (3.5-5.1)
[2017-05-01] MEDS: INSULIN GLARGINE [LANtus] 3 ML PEN SC SCH (08:29)
[2017-05-01] MEDS: INSULIN ASPART [NOVOLOG] 3 ML PEN SC SCH ×4 (08:30→21:00)
[2017-05-01] MEDS: GUAIFENESIN LA 600 MG TABSR PO SCH ×2 (08:36→21:23)
[2017-05-01] MEDS: DOCUSATE SODIUM 100 MG CAP PO SCH ×2 (08:36→21:23)
[2017-05-01] MEDS: FAMOTIDINE 20 MG TAB PO SCH (08:36)
[2017-05-01] MEDS: GABAPENTIN 300 MG CAP PO SCH ×2 (08:36→21:23)
[2017-05-01] MEDS: ENOXAPARIN 40 MG/0.4 ML SYG SC SCH (08:39)
--- NOTE | 2017-05-01 08:51 | CONS ---
Date/Time of Note Date/Time of Note DATE: 05/01/17 TIME: 08:50 Assessment/Plan Assessment/Plan Additional Assessment/Plan Assessment and recommendations; 1. Patient admitted with severe asthma exacerbation with marked overall clinical improvement. 2. History of diabetes. With adequate blood sugar control. 3. History of psychiatric disorder. Continue current supportive care. Further steroid tapering in 24 hours. Consider transfer out of ICU to the medical floor. Consultation Date/Type/Reason Admit Date/Time Apr 25, 2017 at 13:33 Type of Consultation: Pulmonary 24 HR Interval Summary Free Text/Dictation Patient's condition is stable. Reporting significant improvement in shortness of breath. Denies any further wheezing. Complains of sore throat. Denies any dysphagia. General exam; young female, awake alert, currently in no distress. Able to talk in fairly long sentences without stopping. Exam/Review of Systems Vital Signs Vitals Vital Signs Date Time Temp Pulse Resp B/P Pulse Ox O2 Delivery O2 Flow Rate FiO2 05/01/17 08:21 87 18 94 Nasal Cannula 3.5 05/01/17 07:00 137/85 05/01/17 04:00 98.0 04/30/17 06:37 33 Intake and Output 04/30/17 04/30/17 05/01/17 15:00 23:00 07:00 Intake Total 1000 ml 850 ml 250 ml Output Total 500 ml 1000 ml 800 ml Balance 500 ml -150 ml -550 ml Exam HEENT exam; supple neck, no JVD. No lymphadenopathy. Midline trachea. No thyromegaly. Patient has good dentition. Pharynx is clear. Chest exam; diminished breath sounds bilaterally. No added sounds. S1-S2 audible, no murmurs. Regular rhythm. Abdomen exam; soft, nontender. No organomegaly. Bowel sounds audible. Extremity exam; no edema. No clubbing. Pulses 1+ bilaterally. LIFE SCIENCES MANAGER exam; no focal deficit. Results Result Diagram: 05/01/17 0515 05/01/17 0515 Results 24 hrs Laboratory Tests Test 04/30/17 12:04 04/30/17 17:38 04/30/17 20:13 05/01/17 01:52 Bedside Glucose 165 163 167 169 Test 05/01/17 05:15 05/01/17 08:26 White Blood Count 11.4 H Red Blood Count 4.64 Hemoglobin 14.4 Hematocrit 42.7 Mean Corpuscular Volume 92.0 Mean Corpuscular Hemoglobin 31.0 Mean Corpuscular Hemoglobin Concent 33.7 Red Cell Distribution Width 12.6 Platelet Count 282 Mean Platelet Volume 9.9 Neutrophils % 80.3 H Lymphocytes % 10.0 L Monocytes % 6.7 Eosinophils % 0.0 Basophils % 0.3 Nucleated Red Blood Cells % 0.0 Neutrophils # 9.2 H Lymphocytes # 1.1 Monocytes # 0.8 Eosinophils # 0.0 Basophils # 0.0 Nucleated Red Blood Cells # 0.0 Sodium Level 139 Potassium Level 4.3 Chloride Level 99 Carbon Dioxide Level 32 H Anion Gap 12 Blood Urea Nitrogen 27 H Creatinine 0.86 Glucose Level 161 Calcium Level 8.9 Bedside Glucose 157 Medications Medications Current Medications Ondansetron HCl (Zofran Inj) 4 mg Q6H PRN IV NAUSEA AND/OR VOMITING; Start 04/25/17 at 14:00 Acetaminophen (Tylenol Tab) 650 mg Q6H PRN PO PAIN LEVEL 1-3 OR FEVER; Start 04/25/17 at 14:00 Acetaminophen/ Hydrocodone Bitart ([place] (5/325)) 1 tab Q6H PRN PO MODERATE PAIN LEVEL 4-6 Last administered on 04/28/17 10:11; Admin Dose 1 TAB; Start at 14:00 Enoxaparin Sodium (Lovenox) 40 mg DAILY SC Last administered on 05/01/17 08:39 ; Admin Dose 40 MG; Start 04/26/17 at 09:00 Amitriptyline HCl (Elavil) 75 mg QHS PO Last administered on 04/30/17 20:09; Admin Dose 75 MG; Start 04/25/17 at 21:00 Gabapentin (Neurontin) 600 mg BID PO Last administered on 05/01/17 08:36; Admin Dose 600 MG; Start 04/25/17 at 21:00 Montelukast Sodium (Singulair) 10 mg QHS PO Last administered on 04/30/17 20: 08; Admin Dose 10 MG; Start 04/25/17 at 21:00 Docusate Sodium (Colace) 100 mg BID PO Last administered on 05/01/17 08:36; Admin Dose 100 MG; Start 04/26/17 at 09:00 Polyethylene Glycol (Miralax) 17 gm DAILY PRN PO CONSTIPATION Last administered on 04/26/17 06:41; Admin Dose 17 GM; Start 04/26/17 at 06:00 Guaifenesin (Robitussin Liquid Cup) 200 mg Q4H PRN PO Cough Last administered on 04/27/17 12:19; Admin Dose 200 MG; Start 04/26/17 at 09:30 Phenol (Cepastat Lozenge) 1 lozenge Q1H PRN MT Sore throat Last administered on 04/27/17 17:08; Admin Dose 1 LOZENGE; Start 04/26/17 at 10:00 Lorazepam (Ativan) 0.5 mg TID PRN PO ANXIETY Last administered on 04/28/17 22: 44; Admin Dose 0.5 MG; Start 04/27/17 at 01:00 Morphine Sulfate (morphine) 3 mg Q4H PRN IV pain Last administered on 01:53; Admin Dose 3 MG; Start 04/27/17 at 10:30 Diagnostic Test (Pha) (Accu-Chek) 1 ea 02 XX Last administered on 04/28/17 02: 00; Admin Dose 1 EA; Start 04/28/17 at 02:00 Miscellaneous Information 1 ea NOTE XX ; Start 04/27/17 at 11:00 Glucose (Glutose) 15 gm Q15M PRN PO DECREASED GLUCOSE; Start 04/27/17 at 11:00 Glucose (Glutose) 22.5 gm Q15M PRN PO DECREASED GLUCOSE; Start 04/27/17 at 11: 00 Dextrose (D50w Syringe) 25 ml Q15M PRN IV DECREASED GLUCOSE; Start 04/27/17 at 11:00 Dextrose (D50w Syringe) 50 ml Q15M PRN IV DECREASED GLUCOSE; Start 04/27/17 at 11:00 Glucagon (Glucagen) 1 mg Q15M PRN IM DECREASED GLUCOSE; Start 04/27/17 at 11:00 Glucose 15 gm 15 gm Q15M PRN BUCCAL DECREASED GLUCOSE; Start 04/27/17 at 11:00 Azithromycin (Zithromax 500mg/ NS (Pmx)) 250 ml @ 250 mls/hr Q24H IVPB Last administered on 04/30/17 12:11; Admin Dose 250 MLS/HR; Start 04/27/17 at 11:00 Guaifenesin (Mucinex) 600 mg BID PO Last administered on 05/01/17 08:36; Admin Dose 600 MG; Start 04/27/17 at 11:00 Famotidine (Pepcid) 20 mg DAILY PO Last administered on 05/01/17 08:36; Admin Dose 20 MG; Start 04/29/17 at 10:30 Insulin Glargine (Lantus) 22 unit DAILY@08 SC Last administered on 05/01/17 08 :29; Admin Dose 22 UNIT; Start 04/29/17 at 11:00 Methylprednisolone Sodium Succinate (Solu-Medrol) 80 mg Q6 IV Last administered on 05/01/17 05:27; Admin Dose 80 MG; Start 04/30/17 at 12:00 JASIEL OLIVEIRA May 01, 2017 08:51
[2017-05-01] MEDS: AZITHROMYCIN 500MG/NS (PMX) 250 ML IVPB SCH (11:50)
[2017-05-01] MEDS: ALBUTEROL/IPRATROPIUM (NEB) 3 ML AMP HHN PRN (14:52)
--- NOTE | 2017-05-01 17:00 | PN ---
Date/Time of Note Date/Time of Note DATE: 05/01/17 TIME: 16:52 Assessment/Plan VTE Prophylaxis VTE Prophylaxis Intervention: LMWH Lines/Catheters IV Catheter Type (from [facility]): [facility] Urinary Cath still in place: No Assessment/Plan Assessment/Plan 1. Asthma exacerbation, improving, decrease soluMedrol 2. Hyperglycemia, no history DM, decrease lantus due to decrease of steroid 3 History of fibromyalgia. Continue with gabapentin and analgesics. 4. History of psychiatric disorder. Remained stable at present. Monitor for now. Benzodiazepines as needed. 5. Morbid obesity. Patient noted with BMI 49.0 kg/m. Weight reduction was advised 6. DVT prophylaxis: lovenox Subjective 24 Hr Interval Summary Free Text/Dictation still with shortness of breath, afebrile Exam/Review of Systems Vital Signs Vitals Vital Signs Date Time Temp Pulse Resp B/P Pulse Ox O2 Delivery O2 Flow Rate FiO2 05/01/17 16:50 94 20 95 Nasal Cannula 5.0 05/01/17 15:58 98.9 139/79 04/30/17 06:37 33 Intake and Output 04/30/17 04/30/17 05/01/17 15:00 23:00 07:00 Intake Total 1000 ml 850 ml 250 ml Output Total 500 ml 1000 ml 800 ml Balance 500 ml -150 ml -550 ml Exam Constitutional: alert, obese, oriented, well developed Head: atraumatic, normocephalic Eyes: EOMI, PERRL, nl conjunctiva, nl lids, nl sclera ENMT: nl external ears & nose, nl lips & teeth, nl nasal mucosa & septum Neck: non-tender, supple Respiratory: wheezing (diffuse) Cardiovascular: nl pulses, regular rate and rhythm, No S3, No S4, No bruits, No diastolic murmur, No edema, No gallop, No irregular rhythm, No jugular venous distention (JVD), No murmurs/extra sounds, No other, No rub, No systolic murmur Gastrointestinal: nl liver, spleen, non-tender, soft Musculoskeletal: nl extremities to inspection Extremities: normal pulses, No calf tenderness, No clubbing, No cyanosis, No edema, No other, No palpable cord, No pitting pedal edema, No tenderness Neurological: SSIS SSRS DEVELOPER II-XII intact, nl mental status, nl speech, nl strength Skin: nl turgor Lymph: nl lymph nodes Results Result Diagram: 05/01/17 0515 05/01/17 0515 Results 24 hrs Laboratory Tests Test 04/30/17 17:38 04/30/17 20:13 05/01/17 01:52 05/01/17 05:15 Bedside Glucose 163 167 169 White Blood Count 11.4 H Red Blood Count 4.64 Hemoglobin 14.4 Hematocrit 42.7 Mean Corpuscular Volume 92.0 Mean Corpuscular Hemoglobin 31.0 Mean Corpuscular Hemoglobin Concent 33.7 Red Cell Distribution Width 12.6 Platelet Count 282 Mean Platelet Volume 9.9 Neutrophils % 80.3 H Lymphocytes % 10.0 L Monocytes % 6.7 Eosinophils % 0.0 Basophils % 0.3 Nucleated Red Blood Cells % 0.0 Neutrophils # 9.2 H Lymphocytes # 1.1 Monocytes # 0.8 Eosinophils # 0.0 Basophils # 0.0 Nucleated Red Blood Cells # 0.0 Sodium Level 139 Potassium Level 4.3 Chloride Level 99 Carbon Dioxide Level 32 H Anion Gap 12 Blood Urea Nitrogen 27 H Creatinine 0.86 Glucose Level 161 Calcium Level 8.9 Test 05/01/17 08:26 05/01/17 12:12 Bedside Glucose 157 142 Medications Medications Current Medications Ondansetron HCl (Zofran Inj) 4 mg Q6H PRN IV NAUSEA AND/OR VOMITING; Start 04/25/17 at 14:00 Acetaminophen (Tylenol Tab) 650 mg Q6H PRN PO PAIN LEVEL 1-3 OR FEVER; Start 04/25/17 at 14:00 Acetaminophen/ Hydrocodone Bitart ([place] (5/325)) 1 tab Q6H PRN PO MODERATE PAIN LEVEL 4-6 Last administered on 04/28/17 10:11; Admin Dose 1 TAB; Start at 14:00 Enoxaparin Sodium (Lovenox) 40 mg DAILY SC Last administered on 05/01/17 08:39 ; Admin Dose 40 MG; Start 04/26/17 at 09:00 Amitriptyline HCl (Elavil) 75 mg QHS PO Last administered on 04/30/17 20:09; Admin Dose 75 MG; Start 04/25/17 at 21:00 Gabapentin (Neurontin) 600 mg BID PO Last administered on 05/01/17 08:36; Admin Dose 600 MG; Start 04/25/17 at 21:00 Montelukast Sodium (Singulair) 10 mg QHS PO Last administered on 04/30/17 20: 08; Admin Dose 10 MG; Start 04/25/17 at 21:00 Docusate Sodium (Colace) 100 mg BID PO Last administered on 05/01/17 08:36; Admin Dose 100 MG; Start 04/26/17 at 09:00 Polyethylene Glycol (Miralax) 17 gm DAILY PRN PO CONSTIPATION Last administered on 04/26/17 06:41; Admin Dose 17 GM; Start 04/26/17 at 06:00 Guaifenesin (Robitussin Liquid Cup) 200 mg Q4H PRN PO Cough Last administered on 04/27/17 12:19; Admin Dose 200 MG; Start 04/26/17 at 09:30 Phenol (Cepastat Lozenge) 1 lozenge Q1H PRN MT Sore throat Last administered on 04/27/17 17:08; Admin Dose 1 LOZENGE; Start 04/26/17 at 10:00 Lorazepam (Ativan) 0.5 mg TID PRN PO ANXIETY Last administered on 04/28/17 22: 44; Admin Dose 0.5 MG; Start 04/27/17 at 01:00 Morphine Sulfate (morphine) 3 mg Q4H PRN IV pain Last administered on 16:19; Admin Dose 3 MG; Start 04/27/17 at 10:30 Diagnostic Test (Pha) (Accu-Chek) 1 ea 02 XX Last administered on 04/28/17 02: 00; Admin Dose 1 EA; Start 04/28/17 at 02:00 Miscellaneous Information 1 ea NOTE XX ; Start 04/27/17 at 11:00 Glucose (Glutose) 15 gm Q15M PRN PO DECREASED GLUCOSE; Start 04/27/17 at 11:00 Glucose (Glutose) 22.5 gm Q15M PRN PO DECREASED GLUCOSE; Start 04/27/17 at 11: 00 Dextrose (D50w Syringe) 25 ml Q15M PRN IV DECREASED GLUCOSE; Start 04/27/17 at 11:00 Dextrose (D50w Syringe) 50 ml Q15M PRN IV DECREASED GLUCOSE; Start 04/27/17 at 11:00 Glucagon (Glucagen) 1 mg Q15M PRN IM DECREASED GLUCOSE; Start 04/27/17 at 11:00 Glucose 15 gm 15 gm Q15M PRN BUCCAL DECREASED GLUCOSE; Start 04/27/17 at 11:00 Azithromycin (Zithromax 500mg/ NS (Pmx)) 250 ml @ 250 mls/hr Q24H IVPB Last administered on 05/01/17 11:50; Admin Dose 250 MLS/HR; Start 04/27/17 at 11:00 Guaifenesin (Mucinex) 600 mg BID PO Last administered on 05/01/17 08:36; Admin Dose 600 MG; Start 04/27/17 at 11:00 Famotidine (Pepcid) 20 mg DAILY PO Last administered on 05/01/17 08:36; Admin Dose 20 MG; Start 04/29/17 at 10:30 Insulin Glargine (Lantus) 22 unit DAILY@08 SC Last administered on 05/01/17 08 :29; Admin Dose 22 UNIT; Start 04/29/17 at 11:00 Methylprednisolone Sodium Succinate (Solu-Medrol) 80 mg Q6 IV Last administered on 05/01/17 11:51; Admin Dose 80 MG; Start 04/30/17 at 12:00 DAISY MARTINEZ MD May 01, 2017 17:00
[2017-05-01] MEDS: METHYLPREDNISOLONE 40 MG INJ IV SCH (18:10)
[2017-05-01] MEDS: AMITRIPTYLINE 25 MG TAB PO SCH (21:23)
[2017-05-01] MEDS: MONTELUKAST 10 MG TAB PO SCH (22:12)
[2017-05-02] VITALS (11 sets, daily range): BP systolic 125–163; BP diastolic 68–93; PULSE 71–110; RESP 18–21
[2017-05-02] MEDS: ALBUTEROL/IPRATROPIUM (NEB) 3 ML AMP HHN SCH ×5 (00:01→21:26)
[2017-05-02] MEDS: METHYLPREDNISOLONE 40 MG INJ IV SCH ×4 (00:19→17:36)
[2017-05-02] MEDS: ACCU-CHEK XX SCH (01:21)
[2017-05-02] MEDS: morphine 4 MG/ML VIAL IV PRN ×5 (01:56→21:55)
[2017-05-02] MEDS: GUAIFENESIN 20 MG/ML 5ML CUP PO PRN (02:02)
[2017-05-02] MEDS: INSULIN ASPART [NOVOLOG] 3 ML PEN SC SCH ×4 (08:00→22:03)
[2017-05-02 08:32] LABS: BASOPHILS % 0.3 % (0.0-2.0); HEMATOCRIT 42.1 % (37.0-47.0); HEMOGLOBIN 14.1 g/dl (12.0-16.0); LYMPHOCYTES # 1.2 10^3/ul (0.8-2.9); MEAN CORPUSCULAR HEMOGLOBIN 31.1 pg (29.0-33.0); MEAN CORPUSCULAR HGB CONC 33.5 g/dl (32.0-37.0); MEAN CORPUSCULAR VOLUME 92.9 fl (82.0-101.0); MEAN PLATELET VOLUME 9.9 fl (7.4-10.4); MONOCYTE # 0.7 10^3/ul (0.3-0.9); MONOCYTES % 5.8 % (0.0-11.0); NEUTROPHIL # 9.6 10^3/ul (1.6-7.5); NEUTROPHILS % 81.3 % (39.0-77.0); PLATELET COUNT 260 10^3/UL (140-415); RED BLOOD COUNT 4.53 10^6/ul (4.20-5.40); RED CELL DISTRIBUTION WIDTH 12.9 % (11.5-14.5); WHITE BLOOD COUNT 11.8 10^3/ul (4.8-10.8)
[2017-05-02 08:34] LABS: CALCIUM 8.8 mg/dl (8.4-10.2); CREATININE 0.9 mg/dl (0.44-1.00); POTASSIUM 4.2 mmol/L (3.5-5.1)
[2017-05-02] MEDS: GABAPENTIN 300 MG CAP PO SCH ×2 (09:09→22:01)
[2017-05-02] MEDS: FAMOTIDINE 20 MG TAB PO SCH (09:09)
[2017-05-02] MEDS: GUAIFENESIN LA 600 MG TABSR PO SCH ×2 (09:09→22:02)
[2017-05-02] MEDS: INSULIN GLARGINE [LANtus] 3 ML PEN SC SCH (09:11)
[2017-05-02] MEDS: ENOXAPARIN 40 MG/0.4 ML SYG SC SCH (09:12)
[2017-05-02] MEDS: DOCUSATE SODIUM 100 MG CAP PO SCH ×2 (09:13→22:01)
--- NOTE | 2017-05-02 11:51 | PN ---
Date/Time of Note Date/Time of Note DATE: 05/02/17 TIME: 11:49 Assessment/Plan VTE Prophylaxis VTE Prophylaxis Intervention: LMWH Lines/Catheters IV C[facility]ter Type (from [facility]): [facility] Urinary Cath still in place: No Assessment/Plan Chief Complaint/Hosp Course Assessment and plan 1. Asthma exacerbation. Remains in ICU for now. Continue bronchodilators. Titrate down on O2 as tolerated. Continue on steroid therapy. f/u pulmonary recs. Improving at present 2. History of fibromyalgia. Continue with gabapentin and analgesics. 3. History of psychiatric disorder. Remained stable at present. Monitor for now. Benzodiazepines as needed. 4. Hyperglycemia secondary to steroid use. Patient placed on insulin regimen. Adjust as needed 5. Morbid obesity. Patient noted with BMI 49.0 kg/m. Weight reduction was advised Disposition plan: appears to be improving. continue pulmonary regimen. Seen in telemetry. Ambulation encouraged. Continue to monitor for improvement of respiratory status Discussed plan of care with Dr. Singer Problems: Subjective 24 Hr Interval Summary Free Text/Dictation Still reports having some shortness of breath. Less wheezing noted. Still has some dry cough. Exam/Review of Systems Vital Signs Vitals Vital Signs Date Time Temp Pulse Resp B/P Pulse Ox O2 Delivery O2 Flow Rate FiO2 05/02/17 11:41 98.3 92 19 146/68 93 05/02/17 08:54 Nasal Cannula 5.0 04/30/17 06:37 33 Intake and Output 05/01/17 05/01/17 05/02/17 15:00 23:00 07:00 Intake Total 200 ml 300 ml Output Total 2 ml 1000 ml Balance 198 ml -700 ml Exam Constitutional: alert, obese no s/s of distress Head: normocephalic Eyes: nl conjunctiva Neck: non-tender, supple Respiratory: less wheezing Cardiovascular: regular rate and rhythm Gastrointestinal: non-tender, soft Musculoskeletal: No swelling Neurological: SWITCHBOARD MANAGER II-XII intact, nl mental status, nl speech Skin: nl turgor Results Result Diagram: 05/02/17 0724 05/02/17 0718 Results 24 hrs Laboratory Tests Test 05/01/17 12:12 05/01/17 18:04 05/01/17 21:20 05/02/17 07:18 Bedside Glucose 142 190 160 Sodium Level 139 Potassium Level 4.2 Chloride Level 100 Carbon Dioxide Level 33 H Anion Gap 10 Blood Urea Nitrogen 28 H Creatinine 0.90 Glucose Level 145 Calcium Level 8.8 Test 05/02/17 07:24 05/02/17 08:18 White Blood Count 11.8 H Red Blood Count 4.53 Hemoglobin 14.1 Hematocrit 42.1 Mean Corpuscular Volume 92.9 Mean Corpuscular Hemoglobin 31.1 Mean Corpuscular Hemoglobin Concent 33.5 Red Cell Distribution Width 12.9 Platelet Count 260 Mean Platelet Volume 9.9 Neutrophils % 81.3 H Lymphocytes % 10.0 L Monocytes % 5.8 Eosinophils % 0.0 Basophils % 0.3 Nucleated Red Blood Cells % 0.0 Neutrophils # 9.6 H Lymphocytes # 1.2 Monocytes # 0.7 Eosinophils # 0.0 Basophils # 0.0 Nucleated Red Blood Cells # 0.0 Bedside Glucose 130 Medications Medications Current Medications Ondansetron HCl (Zofran Inj) 4 mg Q6H PRN IV NAUSEA AND/OR VOMITING; Start 04/25/17 at 14:00 Acetaminophen (Tylenol Tab) 650 mg Q6H PRN PO PAIN LEVEL 1-3 OR FEVER; Start 04/25/17 at 14:00 Acetaminophen/ Hydrocodone Bitart ([place] (5/325)) 1 tab Q6H PRN PO MODERATE PAIN LEVEL 4-6 Last administered on 04/28/17 10:11; Admin Dose 1 TAB; Start at 14:00 Enoxaparin Sodium (Lovenox) 40 mg DAILY SC Last administered on 05/02/17 09:12 ; Admin Dose 40 MG; Start 04/26/17 at 09:00 Amitriptyline HCl (Elavil) 75 mg QHS PO Last administered on 05/01/17 21:23; Admin Dose 75 MG; Start 04/25/17 at 21:00 Gabapentin (Neurontin) 600 mg BID PO Last administered on 05/02/17 09:09; Admin Dose 600 MG; Start 04/25/17 at 21:00 Montelukast Sodium (Singulair) 10 mg QHS PO Last administered on 05/01/17 22: 12; Admin Dose 10 MG; Start 04/25/17 at 21:00 Docusate Sodium (Colace) 100 mg BID PO Last administered on 05/02/17 09:13; Admin Dose 100 MG; Start 04/26/17 at 09:00 Polyethylene Glycol (Miralax) 17 gm DAILY PRN PO CONSTIPATION Last administered on 04/26/17 06:41; Admin Dose 17 GM; Start 04/26/17 at 06:00 Guaifenesin (Robitussin Liquid Cup) 200 mg Q4H PRN PO Cough Last administered on 05/02/17 02:02; Admin Dose 200 MG; Start 04/26/17 at 09:30 Phenol (Cepastat Lozenge) 1 lozenge Q1H PRN MT Sore throat Last administered on 04/27/17 17:08; Admin Dose 1 LOZENGE; Start 04/26/17 at 10:00 Lorazepam (Ativan) 0.5 mg TID PRN PO ANXIETY Last administered on 04/28/17 22: 44; Admin Dose 0.5 MG; Start 04/27/17 at 01:00 Morphine Sulfate (morphine) 3 mg Q4H PRN IV pain Last administered on 08:14; Admin Dose 3 MG; Start 04/27/17 at 10:30 Diagnostic Test (Pha) (Accu-Chek) 1 ea 02 XX Last administered on 04/28/17 02: 00; Admin Dose 1 EA; Start 04/28/17 at 02:00 Miscellaneous Information 1 ea NOTE XX ; Start 04/27/17 at 11:00 Glucose (Glutose) 15 gm Q15M PRN PO DECREASED GLUCOSE; Start 04/27/17 at 11:00 Glucose (Glutose) 22.5 gm Q15M PRN PO DECREASED GLUCOSE; Start 04/27/17 at 11: 00 Dextrose (D50w Syringe) 25 ml Q15M PRN IV DECREASED GLUCOSE; Start 04/27/17 at 11:00 Dextrose (D50w Syringe) 50 ml Q15M PRN IV DECREASED GLUCOSE; Start 04/27/17 at 11:00 Glucagon (Glucagen) 1 mg Q15M PRN IM DECREASED GLUCOSE; Start 04/27/17 at 11:00 Glucose 15 gm 15 gm Q15M PRN BUCCAL DECREASED GLUCOSE; Start 04/27/17 at 11:00 Azithromycin (Zithromax 500mg/ NS (Pmx)) 250 ml @ 250 mls/hr Q24H IVPB Last administered on 12/8/17at 11:50; Admin Dose 250 MLS/HR; Start 04/27/17 at 11:00 Guaifenesin (Mucinex) 600 mg BID PO Last administered on 05/02/17 09:09; Admin Dose 600 MG; Start 04/27/17 at 11:00 Famotidine (Pepcid) 20 mg DAILY PO Last administered on 05/02/17 09:09; Admin Dose 20 MG; Start 04/29/17 at 10:30 Methylprednisolone Sodium Succinate (Solu-Medrol) 40 mg Q6 IV Last administered on 05/02/17 05:44; Admin Dose 40 MG; Start 05/01/17 at 18:00 Insulin Glargine (Lantus) 18 unit DAILY@08 SC Last administered on 05/02/17 09 :11; Admin Dose 18 UNIT; Start 05/02/17 at 08:00 DERRELL BONE May 02, 2017 11:51
[2017-05-02] MEDS: AZITHROMYCIN 500MG/NS (PMX) 250 ML IVPB SCH (12:09)
[2017-05-02] MEDS: ALBUTEROL/IPRATROPIUM (NEB) 3 ML AMP HHN PRN (15:48)
--- NOTE | 2017-05-02 16:37 | CONS ---
Date/Time of Note Date/Time of Note DATE: 05/02/17 TIME: 16:35 Consult Date/Type/Reason Admit Date/Time Apr 25, 2017 at 13:33 Initial Consult Date Type of Consultation: Pulmonary Subjective No events. Remains on 5L via NC. Objective Vital Signs Date Time Temp Pulse Resp B/P Pulse Ox O2 Delivery O2 Flow Rate FiO2 05/02/17 15:48 5.0 05/02/17 15:48 88 20 98 Nasal Cannula 05/02/17 15:40 98.1 128/71 04/30/17 06:37 33 Intake and Output 05/01/17 05/01/17 05/02/17 15:00 23:00 07:00 Intake Total 200 ml 300 ml Output Total 2 ml 1000 ml Balance 198 ml -700 ml Exam HEENT: Neck supple; no JVD; no LAD CVS: RRR, S1 and S2 CHEST: Distant wheezing ABD: Obese, NT, + BS EXT: No c/c/e Results/Medications Result Diagram: 05/02/1724 05/02/17 0718 Results 24 hrs Laboratory Tests Test 05/01/17 18:04 05/01/17 21:20 05/02/17 07:18 05/02/17 07:24 Bedside Glucose 190 160 Sodium Level 139 Potassium Level 4.2 Chloride Level 100 Carbon Dioxide Level 33 H Anion Gap 10 Blood Urea Nitrogen 28 H Creatinine 0.90 Glucose Level 145 Calcium Level 8.8 White Blood Count 11.8 H Red Blood Count 4.53 Hemoglobin 14.1 Hematocrit 42.1 Mean Corpuscular Volume 92.9 Mean Corpuscular Hemoglobin 31.1 Mean Corpuscular Hemoglobin Concent 33.5 Red Cell Distribution Width 12.9 Platelet Count 260 Mean Platelet Volume 9.9 Neutrophils % 81.3 H Lymphocytes % 10.0 L Monocytes % 5.8 Eosinophils % 0.0 Basophils % 0.3 Nucleated Red Blood Cells % 0.0 Neutrophils # 9.6 H Lymphocytes # 1.2 Monocytes # 0.7 Eosinophils # 0.0 Basophils # 0.0 Nucleated Red Blood Cells # 0.0 Test 05/02/17 08:18 05/02/17 12:11 Bedside Glucose 130 160 Medications Current Medications Ondansetron HCl (Zofran Inj) 4 mg Q6H PRN IV NAUSEA AND/OR VOMITING; Start 04/25/17 at 14:00 Acetaminophen (Tylenol Tab) 650 mg Q6H PRN PO PAIN LEVEL 1-3 OR FEVER; Start 04/25/17 at 14:00 Acetaminophen/ Hydrocodone Bitart ([place] (5/325)) 1 tab Q6H PRN PO MODERATE PAIN LEVEL 4-6 Last administered on 04/28/17 10:11; Admin Dose 1 TAB; Start at 14:00 Enoxaparin Sodium (Lovenox) 40 mg DAILY SC Last administered on 05/02/17 09:12 ; Admin Dose 40 MG; Start 04/26/17 at 09:00 Amitriptyline HCl (Elavil) 75 mg QHS PO Last administered on 05/01/17 21:23; Admin Dose 75 MG; Start 04/25/17 at 21:00 Gabapentin (Neurontin) 600 mg BID PO Last administered on 05/02/17 09:09; Admin Dose 600 MG; Start 04/25/17 at 21:00 Montelukast Sodium (Singulair) 10 mg QHS PO Last administered on 05/01/17 22: 12; Admin Dose 10 MG; Start 04/25/17 at 21:00 Docusate Sodium (Colace) 100 mg BID PO Last administered on 05/02/17 09:13; Admin Dose 100 MG; Start 04/26/17 at 09:00 Polyethylene Glycol (Miralax) 17 gm DAILY PRN PO CONSTIPATION Last administered on 04/26/17 06:41; Admin Dose 17 GM; Start 04/26/17 at 06:00 Guaifenesin (Robitussin Liquid Cup) 200 mg Q4H PRN PO Cough Last administered on 05/02/17 02:02; Admin Dose 200 MG; Start 04/26/17 at 09:30 Phenol (Cepastat Lozenge) 1 lozenge Q1H PRN MT Sore throat Last administered on 04/27/17 17:08; Admin Dose 1 LOZENGE; Start 04/26/17 at 10:00 Lorazepam (Ativan) 0.5 mg TID PRN PO ANXIETY Last administered on 04/28/17 22: 44; Admin Dose 0.5 MG; Start 04/27/17 at 01:00 Morphine Sulfate (morphine) 3 mg Q4H PRN IV pain Last administered on 12:19; Admin Dose 3 MG; Start 04/27/17 at 10:30 Diagnostic Test (Pha) (Accu-Chek) 1 ea 02 XX Last administered on 04/28/17 02: 00; Admin Dose 1 EA; Start 04/28/17 at 02:00 Miscellaneous Information 1 ea NOTE XX ; Start 04/27/17 at 11:00 Glucose (Glutose) 15 gm Q15M PRN PO DECREASED GLUCOSE; Start 04/27/17 at 11:00 Glucose (Glutose) 22.5 gm Q15M PRN PO DECREASED GLUCOSE; Start 04/27/17 at 11: 00 Dextrose (D50w Syringe) 25 ml Q15M PRN IV DECREASED GLUCOSE; Start 04/27/17 at 11:00 Dextrose (D50w Syringe) 50 ml Q15M PRN IV DECREASED GLUCOSE; Start 04/27/17 at 11:00 Glucagon (Glucagen) 1 mg Q15M PRN IM DECREASED GLUCOSE; Start 04/27/17 at 11:00 Glucose 15 gm 15 gm Q15M PRN BUCCAL DECREASED GLUCOSE; Start 04/27/17 at 11:00 Azithromycin (Zithromax 500mg/ NS (Pmx)) 250 ml @ 250 mls/hr Q24H IVPB Last administered on 05/02/17 12:09; Admin Dose 250 MLS/HR; Start 04/27/17 at 11:00 Guaifenesin (Mucinex) 600 mg BID PO Last administered on 05/02/17 09:09; Admin Dose 600 MG; Start 04/27/17 at 11:00 Famotidine (Pepcid) 20 mg DAILY PO Last administered on 05/02/17 09:09; Admin Dose 20 MG; Start 04/29/17 at 10:30 Methylprednisolone Sodium Succinate (Solu-Medrol) 40 mg Q6 IV Last administered on 05/02/17 12:09; Admin Dose 40 MG; Start 05/01/17 at 18:00 Insulin Glargine (Lantus) 18 unit DAILY@08 SC Last administered on 05/02/17 09 :11; Admin Dose 18 UNIT; Start 05/02/17 at 08:00 Assessment/Plan Additional Assessment/Plan IMP: 1. Acute Asthma Exacerbation 2. Obesity 3. Possible KRUPA/OHS RECS: 1. Taper CS 2. Obtain ECHO 3. Mobilize OOB 4. Titrate FiO2 DYLAN HOFFMANN MD May 02, 2017 16:37
[2017-05-02] MEDS: MONTELUKAST 10 MG TAB PO SCH (22:01)
[2017-05-02] MEDS: AMITRIPTYLINE 25 MG TAB PO SCH (22:02)
[2017-05-03] VITALS (12 sets, daily range): BP systolic 113–149; BP diastolic 58–88; PULSE 77–94; RESP 16–21
[2017-05-03] MEDS: METHYLPREDNISOLONE 40 MG INJ IV SCH ×4 (01:17→17:28)
[2017-05-03] MEDS: ACCU-CHEK XX SCH (01:21)
[2017-05-03] MEDS: ALBUTEROL/IPRATROPIUM (NEB) 3 ML AMP HHN SCH ×5 (01:52→20:20)
[2017-05-03] MEDS: morphine 4 MG/ML VIAL IV PRN ×5 (02:00→22:02)
[2017-05-03] MEDS: ENOXAPARIN 40 MG/0.4 ML SYG SC SCH (08:27)
[2017-05-03] MEDS: INSULIN ASPART [NOVOLOG] 3 ML PEN SC SCH ×4 (08:27→20:11)
[2017-05-03] MEDS: INSULIN GLARGINE [LANtus] 3 ML PEN SC SCH (08:27)
[2017-05-03] MEDS: GUAIFENESIN LA 600 MG TABSR PO SCH ×2 (08:28→20:12)
[2017-05-03] MEDS: GABAPENTIN 300 MG CAP PO SCH ×2 (08:28→20:12)
[2017-05-03] MEDS: FAMOTIDINE 20 MG TAB PO SCH (08:28)
[2017-05-03] MEDS: DOCUSATE SODIUM 100 MG CAP PO SCH ×2 (08:28→20:12)
--- NOTE | 2017-05-03 09:50 | PN ---
Date/Time of Note Date/Time of Note DATE: 05/03/17 TIME: 09:47 Assessment/Plan VTE Prophylaxis VTE Prophylaxis Intervention: LMWH, SCD's Lines/Catheters IV Catheter Type (from Nrs): Saline Lock Urinary Cath still in place: No Assessment/Plan Chief Complaint/Hosp Course Assessment and plan 1. Asthma exacerbation. Remains in ICU for now. Continue bronchodilators. Titrate down on O2 as tolerated. Continue on steroid therapy. f/u pulmonary recs. Improving at present 2. History of fibromyalgia. Continue with gabapentin and analgesics. stable 3. History of psychiatric disorder. Remained stable at present. Monitor for now. Benzodiazepines as needed. 4. Hyperglycemia secondary to steroid use. Patient placed on insulin regimen. Adjust as needed. stable 5. Morbid obesity. Patient noted with BMI 49.0 kg/m. Weight reduction was advised Disposition plan: appears to be improving. continue pulmonary regimen. titrate off o2 as tolerated. continue inhouse monitoring for now. d/c when medically stable and cleared by consultants Discussed plan of care with Dr. Singer Problems: Subjective 24 Hr Interval Summary Free Text/Dictation no s/s of distress. reports little better breathing today Exam/Review of Systems Vital Signs Vitals Vital Signs Date Time Temp Pulse Resp B/P Pulse Ox O2 Delivery O2 Flow Rate FiO2 05/03/17 08:27 5.0 05/03/17 08:27 89 20 95 Nasal Cannula 05/03/17 07:53 98.5 149/76 04/30/17 06:37 33 Intake and Output 05/02/17 05/02/17 05/03/17 15:00 23:00 07:00 Intake Total 250 ml 1600 ml 500 ml Output Total 2000 ml 1600 ml Balance 250 ml -400 ml -1100 ml Exam Constitutional: alert, obese, oriented Head: atraumatic, normocephalic Neck: non-tender, supple Respiratory: wheezing Cardiovascular: regular rate and rhythm Gastrointestinal: soft Musculoskeletal: nl extremities to inspection Neurological: M[employer]UM [employer]IAN II-XII intact, nl mental status, nl speech Skin: nl turgor Results Result Diagram: 05/02/17 0724 05/02/17 0718 Results 24 hrs Laboratory Tests Test 05/02/17 12:11 05/02/17 17:35 05/02/17 22:00 05/03/17 01:19 Bedside Glucose 160 131 185 131 Test 05/03/17 08:08 Bedside Glucose 148 Medications Medications Current Medications Ondansetron HCl (Zofran Inj) 4 mg Q6H PRN IV NAUSEA AND/OR VOMITING; Start 04/25/17 at 14:00 Acetaminophen (Tylenol Tab) 650 mg Q6H PRN PO PAIN LEVEL 1-3 OR FEVER; Start 04/25/17 at 14:00 Acetaminophen/ Hydrocodone Bitart ([place] (5/325)) 1 tab Q6H PRN PO MODERATE PAIN LEVEL 4-6 Last administered on 04/28/17 10:11; Admin Dose 1 TAB; Start at 14:00 Enoxaparin Sodium (Lovenox) 40 mg DAILY SC Last administered on 05/03/17 08: 27; Admin Dose 40 MG; Start 04/26/17 at 09:00 Amitriptyline HCl (Elavil) 75 mg QHS PO Last administered on 05/02/17 22:02; Admin Dose 75 MG; Start 04/25/17 at 21:00 Gabapentin (Neurontin) 600 mg BID PO Last administered on 05/03/17 08:28; Admin Dose 600 MG; Start 04/25/17 at 21:00 Montelukast Sodium (Singulair) 10 mg QHS PO Last administered on 05/02/17 22: 01; Admin Dose 10 MG; Start 04/25/17 at 21:00 Docusate Sodium (Colace) 100 mg BID PO Last administered on 05/03/17 08:28; Admin Dose 100 MG; Start 04/26/17 at 09:00 Polyethylene Glycol (Miralax) 17 gm DAILY PRN PO CONSTIPATION Last administered on 04/26/17 06:41; Admin Dose 17 GM; Start 04/26/17 at 06:00 Guaifenesin (Robitussin Liquid Cup) 200 mg Q4H PRN PO Cough Last administered on 05/02/17 02:02; Admin Dose 200 MG; Start 04/26/17 at 09:30 Phenol (Cepastat Lozenge) 1 lozenge Q1H PRN MT Sore throat Last administered on 04/27/17 17:08; Admin Dose 1 LOZENGE; Start 04/26/17 at 10:00 Lorazepam (Ativan) 0.5 mg TID PRN PO ANXIETY Last administered on 04/28/17 22: 44; Admin Dose 0.5 MG; Start 04/27/17 at 01:00 Morphine Sulfate (morphine) 3 mg Q4H PRN IV pain Last administered on 06:54; Admin Dose 3 MG; Start 04/27/17 at 10:30 Diagnostic Test (Pha) (Accu-Chek) 1 ea 02 XX Last administered on 05/03/17 01 :21; Admin Dose 1 EA; Start 04/28/17 at 02:00 Miscellaneous Information 1 ea NOTE XX ; Start 04/27/17 at 11:00 Glucose (Glutose) 15 gm Q15M PRN PO DECREASED GLUCOSE; Start 04/27/17 at 11:00 Glucose (Glutose) 22.5 gm Q15M PRN PO DECREASED GLUCOSE; Start 04/27/17 at 11: 00 Dextrose (D50w Syringe) 25 ml Q15M PRN IV DECREASED GLUCOSE; Start 04/27/17 at 11:00 Dextrose (D50w Syringe) 50 ml Q15M PRN IV DECREASED GLUCOSE; Start 04/27/17 at 11:00 Glucagon (Glucagen) 1 mg Q15M PRN IM DECREASED GLUCOSE; Start 04/27/17 at 11:00 Glucose 15 gm 15 gm Q15M PRN BUCCAL DECREASED GLUCOSE; Start 04/27/17 at 11:00 Azithromycin (Zithromax 500mg/ NS (Pmx)) 250 ml @ 250 mls/hr Q24H IVPB Last administered on 05/02/17 12:09; Admin Dose 250 MLS/HR; Start 04/27/17 at 11:00 Guaifenesin (Mucinex) 600 mg BID PO Last administered on 05/03/17 08:28; Admin Dose 600 MG; Start 04/27/17 at 11:00 Famotidine (Pepcid) 20 mg DAILY PO Last administered on 05/03/17 08:28; Admin Dose 20 MG; Start 04/29/17 at 10:30 Methylprednisolone Sodium Succinate (Solu-Medrol) 40 mg Q6 IV Last administered on 05/03/17 06:10; Admin Dose 40 MG; Start 05/01/17 at 18:00 Insulin Glargine (Lantus) 18 unit DAILY@08 SC Last administered on 05/03/17 08:27; Admin Dose 18 UNIT; Start 05/02/17 at 08:00 DERRELL BONE May 03, 2017 09:50
[2017-05-03] MEDS: AZITHROMYCIN 500MG/NS (PMX) 250 ML IVPB SCH (11:15)
--- NOTE | 2017-05-03 15:46 | CONS ---
Date/Time of Note Date/Time of Note DATE: 05/03/17 TIME: 15:45 Consult Date/Type/Reason Admit Date/Time Apr 25, 2017 at 13:33 Type of Consultation: Pulmonary Subjective No events overnight. Objective Vital Signs Date Time Temp Pulse Resp B/P Pulse Ox O2 Delivery O2 Flow Rate FiO2 05/03/17 13:01 5.0 05/03/17 13:01 86 20 96 Nasal Cannula 05/03/17 11:55 98.9 126/75 04/30/17 06:37 33 Intake and Output 05/02/17 05/02/17 05/03/17 15:00 23:00 07:00 Intake Total 250 ml 1600 ml 500 ml Output Total 2000 ml 1600 ml Balance 250 ml -400 ml -1100 ml Exam HEENT: Neck supple; no JVD; no LAD CVS: RRR, S1 and S2 CHEST: Distant wheezing ABD: Obese, NT, + BS EXT: No c/c; tr edema Results/Medications Result Diagram: 05/02/17 0724 05/02/17 0718 Results 24 hrs Laboratory Tests Test 05/02/17 17:35 05/02/17 22:00 05/03/17 01:19 05/03/17 08:08 Bedside Glucose 131 185 131 148 Test 05/03/17 11:20 Bedside Glucose 150 Medications Current Medications Ondansetron HCl (Zofran Inj) 4 mg Q6H PRN IV NAUSEA AND/OR VOMITING; Start 04/25/17 at 14:00 Acetaminophen (Tylenol Tab) 650 mg Q6H PRN PO PAIN LEVEL 1-3 OR FEVER; Start 04/25/17 at 14:00 Acetaminophen/ Hydrocodone Bitart ([place] (5/325)) 1 tab Q6H PRN PO MODERATE PAIN LEVEL 4-6 Last administered on 04/28/17 10:11; Admin Dose 1 TAB; Start at 14:00 Enoxaparin Sodium (Lovenox) 40 mg DAILY SC Last administered on 05/03/17 08: 27; Admin Dose 40 MG; Start 04/26/17 at 09:00 Amitriptyline HCl (Elavil) 75 mg QHS PO Last administered on 05/02/17 22:02; Admin Dose 75 MG; Start 04/25/17 at 21:00 Gabapentin (Neurontin) 600 mg BID PO Last administered on 05/03/17 08:28; Admin Dose 600 MG; Start 04/25/17 at 21:00 Montelukast Sodium (Singulair) 10 mg QHS PO Last administered on 05/02/17 22: 01; Admin Dose 10 MG; Start 04/25/17 at 21:00 Docusate Sodium (Colace) 100 mg BID PO Last administered on 05/03/17 08:28; Admin Dose 100 MG; Start 04/26/17 at 09:00 Polyethylene Glycol (Miralax) 17 gm DAILY PRN PO CONSTIPATION Last administered on 04/26/17 06:41; Admin Dose 17 GM; Start 04/26/17 at 06:00 Guaifenesin (Robitussin Liquid Cup) 200 mg Q4H PRN PO Cough Last administered on 05/02/17 02:02; Admin Dose 200 MG; Start 04/26/17 at 09:30 Phenol (Cepastat Lozenge) 1 lozenge Q1H PRN MT Sore throat Last administered on 04/27/17 17:08; Admin Dose 1 LOZENGE; Start 04/26/17 at 10:00 Lorazepam (Ativan) 0.5 mg TID PRN PO ANXIETY Last administered on 04/28/17 22: 44; Admin Dose 0.5 MG; Start 04/27/17 at 01:00 Morphine Sulfate (morphine) 3 mg Q4H PRN IV pain Last administered on 11:14; Admin Dose 3 MG; Start 04/27/17 at 10:30 Diagnostic Test (Pha) (Accu-Chek) 1 ea 02 XX Last administered on 05/03/17 01 :21; Admin Dose 1 EA; Start 04/28/17 at 02:00 Miscellaneous Information 1 ea NOTE XX ; Start 04/27/17 at 11:00 Glucose (Glutose) 15 gm Q15M PRN PO DECREASED GLUCOSE; Start 04/27/17 at 11:00 Glucose (Glutose) 22.5 gm Q15M PRN PO DECREASED GLUCOSE; Start 04/27/17 at 11: 00 Dextrose (D50w Syringe) 25 ml Q15M PRN IV DECREASED GLUCOSE; Start 04/27/17 at 11:00 Dextrose (D50w Syringe) 50 ml Q15M PRN IV DECREASED GLUCOSE; Start 04/27/17 at 11:00 Glucagon (Glucagen) 1 mg Q15M PRN IM DECREASED GLUCOSE; Start 04/27/17 at 11:00 Glucose 15 gm 15 gm Q15M PRN BUCCAL DECREASED GLUCOSE; Start 04/27/17 at 11:00 Azithromycin (Zithromax 500mg/ NS (Pmx)) 250 ml @ 250 mls/hr Q24H IVPB Last administered on 05/03/17 11:15; Admin Dose 250 MLS/HR; Start 04/27/17 at 11:00 Guaifenesin (Mucinex) 600 mg BID PO Last administered on 05/03/17 08:28; Admin Dose 600 MG; Start 04/27/17 at 11:00 Famotidine (Pepcid) 20 mg DAILY PO Last administered on 05/03/17 08:28; Admin Dose 20 MG; Start 04/29/17 at 10:30 Methylprednisolone Sodium Succinate (Solu-Medrol) 40 mg Q6 IV Last administered on 05/03/17 11:14; Admin Dose 40 MG; Start 05/01/17 at 18:00 Insulin Glargine (Lantus) 18 unit DAILY@08 SC Last administered on 05/03/17 08:27; Admin Dose 18 UNIT; Start 05/02/17 at 08:00 Assessment/Plan Additional Assessment/Plan IMP: 1. Acute Asthma Exacerbation 2. Obesity 3. Possible KRUPA/OHS RECS: 1. Taper CS 2. Obtain ECHO 3. Mobilize OOB 4. Titrate FiO2 5. Am CXR DYLAN HOFFMANN MD May 03, 2017 15:46
[2017-05-03] MEDS: AMITRIPTYLINE 25 MG TAB PO SCH (20:12)
[2017-05-03] MEDS: MONTELUKAST 10 MG TAB PO SCH (20:12)
[2017-05-04] VITALS (12 sets, daily range): BP systolic 115–135; BP diastolic 60–82; PULSE 73–88; RESP 16–20
[2017-05-04] MEDS: METHYLPREDNISOLONE 40 MG INJ IV SCH ×5 (00:41→23:19)
[2017-05-04] MEDS: ALBUTEROL/IPRATROPIUM (NEB) 3 ML AMP HHN SCH ×6 (01:26→20:08)
[2017-05-04] MEDS: ACCU-CHEK XX SCH (01:37)
[2017-05-04] MEDS: morphine 4 MG/ML VIAL IV PRN ×6 (02:26→23:26)
--- NOTE | 2017-05-04 07:49 | RADRPT ---
PROCEDURE: XR Chest. CLINICAL INDICATION: Difficulty breathing TECHNIQUE: Single frontal view of the chest was obtained COMPARISON: 04/28/2017 FINDINGS: The heart and mediastinum are within normal limits. There is a patchy infiltrate or atelectasis in the right lower lobe. The lungs are otherwise clear. There is no pleural effusion or pneumothorax. The bones and soft tissue show no acute change. IMPRESSION: Interval development of a patchy infiltrate or atelectasis in the right lower lobe. Otherwise, no si gnificant abnormalities are identified. RPTAT:AAJJ Physician Alicia Date Time Electronically viewed and signed by Bernardo Ugalde Physician on 05/04/2017 07:49 /
[2017-05-04] MEDS: INSULIN ASPART [NOVOLOG] 3 ML PEN SC SCH ×4 (08:00→20:07)
[2017-05-04] MEDS: FAMOTIDINE 20 MG TAB PO SCH (08:31)
[2017-05-04] MEDS: DOCUSATE SODIUM 100 MG CAP PO SCH ×2 (08:31→20:59)
[2017-05-04] MEDS: GABAPENTIN 300 MG CAP PO SCH ×2 (08:31→20:59)
[2017-05-04] MEDS: GUAIFENESIN LA 600 MG TABSR PO SCH ×2 (08:31→20:59)
[2017-05-04] MEDS: ENOXAPARIN 40 MG/0.4 ML SYG SC SCH (08:34)
[2017-05-04] MEDS: INSULIN GLARGINE [LANtus] 3 ML PEN SC SCH (08:34)
[2017-05-04] MEDS: ACETYLCYSTEINE 20% 4 ML VIAL NEB SCH ×3 (10:00→20:08)
[2017-05-04 10:07] LABS: BASOPHILS % 0.3 % (0.0-2.0); EOSINOPHILS % 0.1 % (0.0-7.0); HEMOGLOBIN 15.9 g/dl (12.0-16.0); LYMPHOCYTES # 1.4 10^3/ul (0.8-2.9); LYMPHOCYTES % 10.6 % (15.0-51.0); MEAN CORPUSCULAR HEMOGLOBIN 31.4 pg (29.0-33.0); MEAN CORPUSCULAR HGB CONC 33.8 g/dl (32.0-37.0); MEAN CORPUSCULAR VOLUME 92.7 fl (82.0-101.0); MEAN PLATELET VOLUME 9.9 fl (7.4-10.4); MONOCYTE # 0.7 10^3/ul (0.3-0.9); MONOCYTES % 5.4 % (0.0-11.0); NEUTROPHIL # 10.3 10^3/ul (1.6-7.5); NEUTROPHILS % 79.4 % (39.0-77.0); PLATELET COUNT 268 10^3/UL (140-415); RED BLOOD COUNT 5.07 10^6/ul (4.20-5.40); RED CELL DISTRIBUTION WIDTH 12.9 % (11.5-14.5); WHITE BLOOD COUNT 12.9 10^3/ul (4.8-10.8)
[2017-05-04 10:27] LABS: CALCIUM 9.1 mg/dl (8.4-10.2); CREATININE 0.89 mg/dl (0.44-1.00); POTASSIUM 4.5 mmol/L (3.5-5.1)
[2017-05-04] MEDS: AZITHROMYCIN 500MG/NS (PMX) 250 ML IVPB SCH (10:49)
--- NOTE | 2017-05-04 11:03 | CONS ---
Date/Time of Note Date/Time of Note DATE: 05/04/17 TIME: 11:02 Assessment/Plan Assessment/Plan Additional Assessment/Plan Assessment recommendations; 1. Patient admitted with severe asthma exacerbation with acute bronchitis with slow but gradual clinical improvement. 2. History of diabetes. 2. Underlying psychiatric illness. Discontinue Zithromax. Continue other medications. Consultation Date/Type/Reason Admit Date/Time Apr 25, 2017 at 13:33 Type of Consultation: Pulmonary 24 HR Interval Summary Free Text/Dictation Patient's condition is gradually but slowly improving. Still complains of hoarseness and wheezing. General exam; young female, awake alert, currently in no distress. Appears mildly hoarse. Exam/Review of Systems Vital Signs Vitals Vital Signs Date Time Temp Pulse Resp B/P Pulse Ox O2 Delivery O2 Flow Rate FiO2 05/04/17 10:05 80 20 98 Nasal Cannula 5.0 05/04/17 07:54 98.4 124/82 Intake and Output 05/03/17 05/03/17 05/04/17 15:00 23:00 07:00 Intake Total 1500 ml 900 ml Output Total 1000 ml 2000 ml Balance 500 ml -1100 ml Exam HEENT exam; supple neck, JVD difficult to see because of short neck. Pharynx is clear. No stridor. Patient has good dentition. No neck masses. Chest exam; mild bilateral wheezing. S1-S2 audible, no murmurs. Regular rhythm. Abdomen exam; soft, nontender. No organomegaly. Bowel sounds audible. Extremity exam; no edema. 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 Results Result Diagram: 05/04/1726 05/04/17 0926 Results 24 hrs Laboratory Tests Test 05/03/17 11:20 05/03/17 17:26 05/03/17 20:10 05/04/17 07:48 Bedside Glucose 150 146 144 110 Test 05/04/17 09:26 White Blood Count 12.9 H Red Blood Count 5.07 Hemoglobin 15.9 Hematocrit 47.0 Mean Corpuscular Volume 92.7 Mean Corpuscular Hemoglobin 31.4 Mean Corpuscular Hemoglobin Concent 33.8 Red Cell Distribution Width 12.9 Platelet Count 268 Mean Platelet Volume 9.9 Neutrophils % 79.4 H Lymphocytes % 10.6 L Monocytes % 5.4 Eosinophils % 0.1 Basophils % 0.3 Nucleated Red Blood Cells % 0.0 Neutrophils # 10.3 H Lymphocytes # 1.4 Monocytes # 0.7 Eosinophils # 0.0 Basophils # 0.0 Nucleated Red Blood Cells # 0.0 Sodium Level 139 Potassium Level 4.5 Chloride Level 95 L Carbon Dioxide Level 36 H Anion Gap 13 Blood Urea Nitrogen 23 H Creatinine 0.89 Glucose Level 165 Calcium Level 9.1 Medications Medications Current Medications Ondansetron HCl (Zofran Inj) 4 mg Q6H PRN IV NAUSEA AND/OR VOMITING; Start 04/25/17 at 14:00 Acetaminophen (Tylenol Tab) 650 mg Q6H PRN PO PAIN LEVEL 1-3 OR FEVER; Start 04/25/17 at 14:00 Acetaminophen/ Hydrocodone Bitart ([place] (5/325)) 1 tab Q6H PRN PO MODERATE PAIN LEVEL 4-6 Last administered on 04/28/17 10:11; Admin Dose 1 TAB; Start at 14:00 Enoxaparin Sodium (Lovenox) 40 mg DAILY SC Last administered on 05/04/17 08: 34; Admin Dose 40 MG; Start 04/26/17 at 09:00 Amitriptyline HCl (Elavil) 75 mg QHS PO Last administered on 05/03/17 20:12; Admin Dose 75 MG; Start 04/25/17 at 21:00 Gabapentin (Neurontin) 600 mg BID PO Last administered on 05/04/17 08:31; Admin Dose 600 MG; Start 04/25/17 at 21:00 Montelukast Sodium (Singulair) 10 mg QHS PO Last administered on 05/03/17 20: 12; Admin Dose 10 MG; Start 04/25/17 at 21:00 Docusate Sodium (Colace) 100 mg BID PO Last administered on 05/04/17 08:31; Admin Dose 100 MG; Start 04/26/17 at 09:00 Polyethylene Glycol (Miralax) 17 gm DAILY PRN PO CONSTIPATION Last administered on 04/26/17 06:41; Admin Dose 17 GM; Start 04/26/17 at 06:00 Guaifenesin (Robitussin Liquid Cup) 200 mg Q4H PRN PO Cough Last administered on 05/02/17 02:02; Admin Dose 200 MG; Start 04/26/17 at 09:30 Phenol (Cepastat Lozenge) 1 lozenge Q1H PRN MT Sore throat Last administered on 04/27/17 17:08; Admin Dose 1 LOZENGE; Start 04/26/17 at 10:00 Lorazepam (Ativan) 0.5 mg TID PRN PO ANXIETY Last administered on 04/28/17 22: 44; Admin Dose 0.5 MG; Start 04/27/17 at 01:00 Morphine Sulfate (morphine) 3 mg Q4H PRN IV pain Last administered on 10:49; Admin Dose 3 MG; Start 04/27/17 at 10:30 Diagnostic Test (Pha) (Accu-Chek) 1 ea 02 XX Last administered on 05/03/17 01 :21; Admin Dose 1 EA; Start 04/28/17 at 02:00 Miscellaneous Information 1 ea NOTE XX ; Start 04/27/17 at 11:00 Glucose (Glutose) 15 gm Q15M PRN PO DECREASED GLUCOSE; Start 04/27/17 at 11:00 Glucose (Glutose) 22.5 gm Q15M PRN PO DECREASED GLUCOSE; Start 04/27/17 at 11: 00 Dextrose (D50w Syringe) 25 ml Q15M PRN IV DECREASED GLUCOSE; Start 04/27/17 at 11:00 Dextrose (D50w Syringe) 50 ml Q15M PRN IV DECREASED GLUCOSE; Start 04/27/17 at 11:00 Glucagon (Glucagen) 1 mg Q15M PRN IM DECREASED GLUCOSE; Start 04/27/17 at 11:00 Glucose 15 gm 15 gm Q15M PRN BUCCAL DECREASED GLUCOSE; Start 04/27/17 at 11:00 Azithromycin (Zithromax 500mg/ NS (Pmx)) 250 ml @ 250 mls/hr Q24H IVPB Last administered on 05/04/17 10:49; Admin Dose 250 MLS/HR; Start 04/27/17 at 11:00 Guaifenesin (Mucinex) 600 mg BID PO Last administered on 05/04/17 08:31; Admin Dose 600 MG; Start 04/27/17 at 11:00 Famotidine (Pepcid) 20 mg DAILY PO Last administered on 05/04/17 08:31; Admin Dose 20 MG; Start 04/29/17 at 10:30 Methylprednisolone Sodium Succinate (Solu-Medrol) 40 mg Q6 IV Last administered on 05/04/17 06:35; Admin Dose 40 MG; Start 05/01/17 at 18:00 Insulin Glargine (Lantus) 18 unit DAILY@08 SC Last administered on 05/04/17 08:34; Admin Dose 18 UNIT; Start 05/02/17 at 08:00 JASIEL OLIVEIRA May 04, 2017 11:03
--- NOTE | 2017-05-04 11:13 | PN ---
Date/Time of Note Date/Time of Note DATE: 05/04/17 TIME: 11:11 Assessment/Plan VTE Prophylaxis VTE Prophylaxis Intervention: LMWH Lines/Catheters IV [facility]from [facility] Saline Lock Urinary Cath still in place: No Assessment/Plan Chief Complaint/Hosp Course Assessment and plan 1. Asthma exacerbation. Remains in ICU for now. Continue bronchodilators. Titrate down on O2 as tolerated. Continue on steroid therapy. f/u pulmonary recs. Slowly improving 2. History of fibromyalgia. Continue with gabapentin and analgesics. stable 3. History of psychiatric disorder. Remained stable at present. Monitor for now. Benzodiazepines as needed. 4. Hyperglycemia secondary to steroid use. Patient placed on insulin regimen. Adjust as needed. stable 5. Morbid obesity. Patient noted with BMI 49.0 kg/m. Weight reduction was advised Disposition plan: Still with reported moderate dyspnea on exertion. Titrate O2 as tolerated. Continue pulmonary treatment. Follow-up on sputum culture. Mucolytic's added Discussed plan of care with Dr. Cárdenas Problems: Subjective 24 Hr Interval Summary Free Text/Dictation Still reports having moderate dyspnea on exertion. 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 intact, nl mental status, nl speech Skin: nl turgor Results Result Diagram: 05/04/1792505/04/1726 Results 24 hrs Laboratory Tests Test 05/03/17 11:20 05/03/17 17:26 05/03/17 20:10 05/04/17 07:48 Bedside Glucose 150 146 144 110 Test 05/04/17 09:26 White Blood Count 12.9 H Red Blood Count 5.07 Hemoglobin 15.9 Hematocrit 47.0 Mean Corpuscular Volume 92.7 Mean Corpuscular Hemoglobin 31.4 Mean Corpuscular Hemoglobin Concent 33.8 Red Cell Distribution Width 12.9 Platelet Count 268 Mean Platelet Volume 9.9 Neutrophils % 79.4 H Lymphocytes % 10.6 L Monocytes % 5.4 Eosinophils % 0.1 Basophils % 0.3 Nucleated Red Blood Cells % 0.0 Neutrophils # 10.3 H Lymphocytes # 1.4 Monocytes # 0.7 Eosinophils # 0.0 Basophils # 0.0 Nucleated Red Blood Cells # 0.0 Sodium Level 139 Potassium Level 4.5 Chloride Level 95 L Carbon Dioxide Level 36 H Anion Gap 13 Blood Urea Nitrogen 23 H Creatinine 0.89 Glucose Level 165 Calcium Level 9.1 Medications Medications Current Medications Ondansetron HCl (Zofran Inj) 4 mg Q6H PRN IV NAUSEA AND/OR VOMITING; Start 04/25/17 at 14:00 Acetaminophen (Tylenol Tab) 650 mg Q6H PRN PO PAIN LEVEL 1-3 OR FEVER; Start 04/25/17 at 14:00 Acetaminophen/ Hydrocodone Bitart ([place] (5/325)) 1 tab Q6H PRN PO MODERATE PAIN LEVEL 4-6 Last administered on 04/28/17 10:11; Admin Dose 1 TAB; Start at 14:00 Enoxaparin Sodium (Lovenox) 40 mg DAILY SC Last administered on 05/04/17 08: 34; Admin Dose 40 MG; Start 04/26/17 at 09:00 Amitriptyline HCl (Elavil) 75 mg QHS PO Last administered on 05/03/17 20:12; Admin Dose 75 MG; Start 04/25/17 at 21:00 Gabapentin (Neurontin) 600 mg BID PO Last administered on 05/04/17 08:31; Admin Dose 600 MG; Start 04/25/17 at 21:00 Montelukast Sodium (Singulair) 10 mg QHS PO Last administered on 05/03/17 20: 12; Admin Dose 10 MG; Start 04/25/17 at 21:00 Docusate Sodium (Colace) 100 mg BID PO Last administered on 05/04/17 08:31; Admin Dose 100 MG; Start 04/26/17 at 09:00 Polyethylene Glycol (Miralax) 17 gm DAILY PRN PO CONSTIPATION Last administered on 04/26/17 06:41; Admin Dose 17 GM; Start 04/26/17 at 06:00 Guaifenesin (Robitussin Liquid Cup) 200 mg Q4H PRN PO Cough Last administered on 05/02/17 02:02; Admin Dose 200 MG; Start 04/26/17 at 09:30 Phenol (Cepastat Lozenge) 1 lozenge Q1H PRN MT Sore throat Last administered on 04/27/17 17:08; Admin Dose 1 LOZENGE; Start 04/26/17 at 10:00 Lorazepam (Ativan) 0.5 mg TID PRN PO ANXIETY Last administered on 04/28/17 22: 44; Admin Dose 0.5 MG; Start 04/27/17 at 01:00 Morphine Sulfate (morphine) 3 mg Q4H PRN IV pain Last administered on 10:49; Admin Dose 3 MG; Start 04/27/17 at 10:30 Diagnostic Test (Pha) (Accu-Chek) 1 ea 02 XX Last administered on 05/03/17 01 :21; Admin Dose 1 EA; Start 04/28/17 at 02:00 Miscellaneous Information 1 ea NOTE XX ; Start 04/27/17 at 11:00 Glucose (Glutose) 15 gm Q15M PRN PO DECREASED GLUCOSE; Start 04/27/17 at 11:00 Glucose (Glutose) 22.5 gm Q15M PRN PO DECREASED GLUCOSE; Start 04/27/17 at 11: 00 Dextrose (D50w Syringe) 25 ml Q15M PRN IV DECREASED GLUCOSE; Start 04/27/17 at 11:00 Dextrose (D50w Syringe) 50 ml Q15M PRN IV DECREASED GLUCOSE; Start 04/27/17 at 11:00 Glucagon (Glucagen) 1 mg Q15M PRN IM DECREASED GLUCOSE; Start 04/27/17 at 11:00 Glucose (Glutose) 15 gm Q15M PRN BUCCAL DECREASED GLUCOSE; Start 04/27/17 at 11 :00 Guaifenesin (Mucinex) 600 mg BID PO Last administered on 05/04/17 08:31; Admin Dose 600 MG; Start 04/27/17 at 11:00 Famotidine (Pepcid) 20 mg DAILY PO Last administered on 05/04/17 08:31; Admin Dose 20 MG; Start 04/29/17 at 10:30 Methylprednisolone Sodium Succinate (Solu-Medrol) 40 mg Q6 IV Last administered on 05/04/17 06:35; Admin Dose 40 MG; Start 05/01/17 at 18:00 Insulin Glargine (Lantus) 18 unit DAILY@08 SC Last administered on 05/04/17 08:34; Admin Dose 18 UNIT; Start 05/02/17 at 08:00 DERRELL BONE May 04, 2017 11:13
--- NOTE | 2017-05-04 17:35 | RADRPT ---
Echocardiogram Report Patient Name: FEDERICA WILDE Gender: Female Date: 1980 Study Date: 04-May-2017 [employer] Teacher: Cory Murillo [facility] Location: [id number] Ref. Physician: DERRELL BONE Quality: Good Procedures: Transthoracic echocardiogram with complete 2D, M-Mode, and doppler examination. Indications: Dyspnea, possible CHF. 2D/M Mode Doppler Measurement Value Normal Ranges Measurement Value Normal Ranges LVIDd 2D 4.9 3.5 - 5.6 cm AV Peak Julio Cesar 1.2 m/sec LVIDs 2D 2.4 2.1 - 4.1 cm AV Peak PG 6.0 mmHg FS 2D 50.4 % LVOT Peak Julio Cesar 1.0 m/sec LVPWd 2D 1.2 0.6 - 1.1 cm LVOT Peak PG 4.0 mmHg IVSd 2D 1.1 0.6 - 1.1 cm MV E Peak Julio Cesar 0.7 m/sec IVS/LVPW 2D 0.9 MV A Peak Julio Cesar 0.6 m/sec AoR Diam 2D 3.0 2.0 - 3.7 cm MV E/A 1.1 LA/Ao 2D 1 0 - 1 MV Decel Time 197 msec EDV 2D 116.0 cm3 MV E/A 1.1 ESV 2D 14.2 cm3 TR Peak Julio Cesar 2.4 m/sec LA Dimen 2D 3.0 2.3 - 4.0 cm TR Peak PG 22.0 mmHg RVSP 30.0 mmHg Findings Left Ventricle: Normal left ventricular systolic function. Normal left ventricular cavity size. Mild concentric left ventricular hypertrophy. Ejection fraction is visually estimated at 55 %. Right Ventricle: Normal right ventricular size. Normal right ventricular systolic function. Left Atrium: The left atrium is normal in size. Right Atrium: The right atrium is normal in size. Mitral Valve: Mitral valve leaflets appear mildly thickened. Mild mitral annular calcification. Trace mitral regurgitation. Aortic Valve: No significant aortic stenosis or insufficiency. Aortic cusps appear mildly calcified. Tricuspid Valve: Normal appearance of the tricuspid valve. Estimated peak PA systolic pressure 30 mmHg. There is trace tricuspid regurgitation. Pulmonic Valve: Normal pulmonic valve appearance. Pericardium: Normal pericardium with no significant pericardial effusion. Aorta: Normal aortic root. IVC: Normal size and no respiratory collapse consistent with elevated right atrial pressure. Conclusions 1.The left ventricle is normal in size and systolic function. 2.Estimated left ventricular ejection fraction of 55%. 3.Mild concentric left ventricular hypertrophy. Electronically Signed By: Jostin Vance 04-May-2017 17:34:18 -0800 Patient Name: FEDERICA WILDE Study Date: 04-May-[id number]
[2017-05-04] MEDS: AMITRIPTYLINE 25 MG TAB PO SCH (20:58)
[2017-05-04] MEDS: MONTELUKAST 10 MG TAB PO SCH (20:59)
[2017-05-05] VITALS (10 sets, daily range): BP systolic 115–146; BP diastolic 56–85; PULSE 80–94; RESP 19–21
[2017-05-05] MEDS: ACCU-CHEK XX SCH (01:27)
[2017-05-05] MEDS: ACETYLCYSTEINE 20% 4 ML VIAL NEB SCH ×3 (01:36→14:29)
[2017-05-05] MEDS: ALBUTEROL/IPRATROPIUM (NEB) 3 ML AMP HHN SCH ×5 (01:36→16:56)
[2017-05-05] MEDS: morphine 4 MG/ML VIAL IV PRN ×4 (03:16→14:29)
[2017-05-05] MEDS: METHYLPREDNISOLONE 40 MG INJ IV SCH ×2 (06:24→11:51)
[2017-05-05 07:34] LABS: BASOPHILS % 0.2 % (0.0-2.0); HEMATOCRIT 44.4 % (37.0-47.0); HEMOGLOBIN 14.8 g/dl (12.0-16.0); LYMPHOCYTES # 1.7 10^3/ul (0.8-2.9); LYMPHOCYTES % 14.2 % (15.0-51.0); MEAN CORPUSCULAR HGB CONC 33.3 g/dl (32.0-37.0); MEAN CORPUSCULAR VOLUME 92.9 fl (82.0-101.0); MEAN PLATELET VOLUME 9.8 fl (7.4-10.4); MONOCYTES % 8.5 % (0.0-11.0); NEUTROPHIL # 9.1 10^3/ul (1.6-7.5); NEUTROPHILS % 75.1 % (39.0-77.0); PLATELET COUNT 253 10^3/UL (140-415); RED BLOOD COUNT 4.78 10^6/ul (4.20-5.40); RED CELL DISTRIBUTION WIDTH 12.6 % (11.5-14.5); WHITE BLOOD COUNT 12.1 10^3/ul (4.8-10.8)
[2017-05-05 07:59] LABS: CALCIUM 9.1 mg/dl (8.4-10.2); CREATININE 0.91 mg/dl (0.44-1.00); POTASSIUM 4.2 mmol/L (3.5-5.1)
[2017-05-05] MEDS: GUAIFENESIN LA 600 MG TABSR PO SCH (08:12)
[2017-05-05] MEDS: GABAPENTIN 300 MG CAP PO SCH (08:12)
[2017-05-05] MEDS: FAMOTIDINE 20 MG TAB PO SCH (08:12)
[2017-05-05] MEDS: DOCUSATE SODIUM 100 MG CAP PO SCH (08:12)
[2017-05-05] MEDS: INSULIN ASPART [NOVOLOG] 3 ML PEN SC SCH ×3 (08:13→17:10)
[2017-05-05] MEDS: INSULIN GLARGINE [LANtus] 3 ML PEN SC SCH (08:14)
[2017-05-05] MEDS: ENOXAPARIN 40 MG/0.4 ML SYG SC SCH (08:14)
--- NOTE | 2017-05-05 10:47 | CONS ---
Date/Time of Note Date/Time of Note DATE: 05/05/17 TIME: 10:44 Assessment/Plan Assessment/Plan Additional Assessment/Plan Assessment and recommendations; 1. Patient admitted with severe asthma exacerbation with acute bronchitis with very slow clinical improvement. 2. Significant dyspnea on exertion. 3. History of psychiatric illness. 4. History of diabetes. Continue current treatment. Patient would benefit from transfer to a rehab center. Patient currently is not in a position to be discharged home to take care of herself. I also had a detailed discussion with the patient's mother over the phone as the patient wanted me to talk to her mother. Consultation Date/Type/Reason Admit Date/Time Apr 25, 2017 at 13:33 Type of Consultation: Pulmonary 24 HR Interval Summary Free Text/Dictation Patient's condition is very gradually improving. She does complain of significant dyspnea on minimal exertion. Still complains of sore throat, coughing, and wheezing episodes. Denies any chest pain, fever or chills. Next General exam; young woman, awake alert, currently in no distress. Exam/Review of Systems Vital Signs Vitals Vital Signs Date Time Temp Pulse Resp B/P Pulse Ox O2 Delivery O2 Flow Rate FiO2 05/05/17 08:15 78 20 98 Nasal Cannula 5.0 05/05/17 07:44 99.0 115/56 Intake and Output 05/04/17 05/04/17 05/05/17 15:00 23:00 07:00 Intake Total 1230 ml Output Total 1100 ml Balance 130 ml Exam HEENT exam; supple neck, no JVD. No lymphadenopathy. Midline trachea. No thyromegaly. Pharynx is clear. Patient has good dentition. No stridor. Chest exam; diminished breath sounds throughout with mild bilateral expiratory wheezing. S1-S2 audible, no murmurs. Regular rhythm. Abdomen exam; soft, protuberant. Nontender. No organomegaly. Bowel sounds audible. Extremity exam; no edema. REIMBURSEMENT LIAISON exam; no focal deficit. Results Result Diagram: 05/05/17 0653 05/05/17 0653 Results 24 hrs Laboratory Tests Test 05/04/17 12:53 05/04/17 17:13 05/04/17 19:58 05/05/17 06:53 Bedside Glucose 87 105 143 White Blood Count 12.1 H Red Blood Count 4.78 Hemoglobin 14.8 Hematocrit 44.4 Mean Corpuscular Volume 92.9 Mean Corpuscular Hemoglobin 31.0 Mean Corpuscular Hemoglobin Concent 33.3 Red Cell Distribution Width 12.6 Platelet Count 253 Mean Platelet Volume 9.8 Neutrophils % 75.1 Lymphocytes % 14.2 L Monocytes % 8.5 Eosinophils % 0.0 Basophils % 0.2 Nucleated Red Blood Cells % 0.0 Neutrophils # 9.1 H Lymphocytes # 1.7 Monocytes # 1.0 H Eosinophils # 0.0 Basophils # 0.0 Nucleated Red Blood Cells # 0.0 Sodium Level 140 Potassium Level 4.2 Chloride Level 95 L Carbon Dioxide Level 37 H Anion Gap 12 Blood Urea Nitrogen 27 H Creatinine 0.91 Glucose Level 117 # Calcium Level 9.1 Test 05/05/17 08:01 Bedside Glucose 161 Medications Medications Current Medications Ondansetron HCl (Zofran Inj) 4 mg Q6H PRN IV NAUSEA AND/OR VOMITING; Start 04/25/17 at 14:00 Acetaminophen (Tylenol Tab) 650 mg Q6H PRN PO PAIN LEVEL 1-3 OR FEVER; Start 04/25/17 at 14:00 Acetaminophen/ Hydrocodone Bitart ([place] (5/325)) 1 tab Q6H PRN PO MODERATE PAIN LEVEL 4-6 Last administered on 04/28/17 10:11; Admin Dose 1 TAB; Start at 14:00 Enoxaparin Sodium (Lovenox) 40 mg DAILY SC Last administered on 05/05/17 08: 14; Admin Dose 40 MG; Start 04/26/17 at 09:00 Amitriptyline HCl (Elavil) 75 mg QHS PO Last administered on 05/04/17 20:58; Admin Dose 75 MG; Start 04/25/17 at 21:00 Gabapentin (Neurontin) 600 mg BID PO Last administered on 05/05/17 08:12; Admin Dose 600 MG; Start 04/25/17 at 21:00 Montelukast Sodium (Singulair) 10 mg QHS PO Last administered on 05/04/17 20: 59; Admin Dose 10 MG; Start 04/25/17 at 21:00 Docusate Sodium (Colace) 100 mg BID PO Last administered on 05/05/17 08:12; Admin Dose 100 MG; Start 04/26/17 at 09:00 Polyethylene Glycol (Miralax) 17 gm DAILY PRN PO CONSTIPATION Last administered on 04/26/17 06:41; Admin Dose 17 GM; Start 04/26/17 at 06:00 Guaifenesin (Robitussin Liquid Cup) 200 mg Q4H PRN PO Cough Last administered on 05/02/17 02:02; Admin Dose 200 MG; Start 04/26/17 at 09:30 Phenol (Cepastat Lozenge) 1 lozenge Q1H PRN MT Sore throat Last administered on 04/27/17 17:08; Admin Dose 1 LOZENGE; Start 04/26/17 at 10:00 Lorazepam (Ativan) 0.5 mg TID PRN PO ANXIETY Last administered on 04/28/17 22: 44; Admin Dose 0.5 MG; Start 04/27/17 at 01:00 Morphine Sulfate (morphine) 3 mg Q4H PRN IV pain Last administered on 10:21; Admin Dose 3 MG; Start 04/27/17 at 10:30 Diagnostic Test (Pha) (Accu-Chek) 1 ea 02 XX Last administered on 05/03/17 01 :21; Admin Dose 1 EA; Start 04/28/17 at 02:00 Miscellaneous Information 1 ea NOTE XX ; Start 04/27/17 at 11:00 Glucose (Glutose) 15 gm Q15M PRN PO DECREASED GLUCOSE; Start 04/27/17 at 11:00 Glucose (Glutose) 22.5 gm Q15M PRN PO DECREASED GLUCOSE; Start 04/27/17 at 11: 00 Dextrose (D50w Syringe) 25 ml Q15M PRN IV DECREASED GLUCOSE; Start 04/27/17 at 11:00 Dextrose (D50w Syringe) 50 ml Q15M PRN IV DECREASED GLUCOSE; Start 04/27/17 at 11:00 Glucagon (Glucagen) 1 mg Q15M PRN IM DECREASED GLUCOSE; Start 04/27/17 at 11:00 Glucose (Glutose) 15 gm Q15M PRN BUCCAL DECREASED GLUCOSE; Start 04/27/17 at 11 :00 Guaifenesin (Mucinex) 600 mg BID PO Last administered on 05/05/17 08:12; Admin Dose 600 MG; Start 04/27/17 at 11:00 Famotidine (Pepcid) 20 mg DAILY PO Last administered on 05/05/17 08:12; Admin Dose 20 MG; Start 04/29/17 at 10:30 Methylprednisolone Sodium Succinate (Solu-Medrol) 40 mg Q6 IV Last administered on 05/05/17 06:24; Admin Dose 40 MG; Start 05/01/17 at 18:00 Insulin Glargine (Lantus) 18 unit DAILY@08 SC Last administered on 05/05/17 08:14; Admin Dose 18 UNIT; Start 05/02/17 at 08:00 JASIEL OLIVEIRA May 05, 2017 10:47
[2017-05-05] MEDS: LORAZEPAM 0.5 MG TAB PO PRN (11:55)
--- NOTE | 2017-05-05 15:26 | PDOCDIS ---
Discharge Instructions DIAGNOSIS Discharge Diagnosis Asthma exacerbation. CONDITION Patient Condition: Stable HOME CARE INSTRUCTIONS: Special Diet: carb controlled OTHER ORDERS: Other Orders: 1. Medications as per medication list. 2. Carbohydrate controlled diet. 3. Activities as tolerated. NINA MAHONEY NP May 05, 2017 15:25
[2017-05-05] MEDS ORDERED: GUAI600T14 PO (15:28)
[2017-05-05] MEDS ORDERED: PRED20TA PO (15:28)
[2017-05-05] MEDS ORDERED: LORA-441 PO (15:28)
[2017-05-05] MEDS ORDERED: FAMO20TA18 PO (15:28)
[2017-05-05] MEDS ORDERED: HYDR-3498 PO (15:28)
[2017-05-05] MEDS ORDERED: Ipratropium 0.02% (Neb) HHN (15:28)
[2017-05-05] MEDS ORDERED: IPRA3AMP HHN ×2 (15:28)
[2017-05-05] MEDS ORDERED: LANT3I SC (15:30)
[2017-05-05] MEDS ORDERED: NOVO3I SC (15:30)
--- NOTE | 2017-05-05 18:02 | DS ---
Date/Time of Note Date/Time of Note DATE: 05/05/17 TIME: 18:02 Discharge Summary Admission/Discharge Info Admit Date/Time Apr 25, 2017 at 13:33 Discharge Date/Time May 05, 2017 at 17:49 Discharge Diagnosis 1. Asthma exacerbation. 2. Fibromyalgia. 3. Psychiatric disorder. 4. Nicotine use. 5. Pre-diabetes 6. Morbid obesity. Patient Condition: Stable Consults 1. Alfredo Marquez MD, Pulmonary. 2. Sander Llamas MD Pulmonary. Procedures 2D Echocardiogram Conclusions 1. The left ventricle is normal in size and systolic function. 2. Estimated left ventricular ejection fraction of 55%. 3. Mild concentric left ventricular hypertrophy. Hx of Present Illness Reason for admission: Shortness of breath. This is a 36-year-old female with past medical history of asthma, fibromyalgia, obesity, and psychiatric disorder who came to the emergency room with chief complaint of dyspnea, wheezing, and productive cough that has been going on for the past 3 days and getting worse. The patient has prior history of multiple hospitalizations for asthma attacks. The patient was complaining of fevers and chills. The patient denied any sick contacts. The patient was complaining of generalized body aches. The patient denied any nausea or vomiting. She denied any dysuria. In the emergency room, the patient was noticed to be in severe respiratory distress. The patient was treated with a single dose of IV Solu-Medrol, single dose of subcutaneous epinephrine, IV magnesium, and inhaled bronchodilators. The patient's chest x-ray showed hypoinflated lungs with scattered atelectasis in the bilateral lower lobes with haziness at the lung bases. The patient had a temperature 100.1F. Her WBC was within normal limits. Hospital Course The patient was admitted to inpatient telemetry floor. She was started on inhaled bronchodilators, tapering dose of steroids, and leukotriene inhibitors. The patient was also maintained on noninvasive positive pressure ventilation because of significant respiratory distress. The patient had to be moved to the intensive care unit on 04/26/2017 because of worsening respiratory failure. The patient was maintained on noninvasive positive pressure ventilation. The patient was being followed by pulmonology. The patient was gradually weaned off noninvasive positive pressure ventilation. The patient had a no evidence of any underlying infectious etiology. The patient was not started on any antibiotics. The patient's hernandez cultures including influenza A and B screen remained negative. She has underlying fibromyalgia. The patient was maintained on gabapentin and other pain medications. The patient has underlying psychiatric disorder. She was maintained on anti-psychotic medications. The patient is a current nicotine user. The patient was advised multiple times on the importance of ceasing the use of nicotine. The patient is morbidly obese with a BMI of more than 45 kg/m . Weight reduction was advised. Patient was noticed to be persistently hyperglycemic, most probably secondary to underlying steroid use. Therefore, the patient was maintained on sliding scale insulin along with Lantus insulin. The patient's hemoglobin A1c was found to be 5.6. The patient has underlying metabolic syndrome and most probably underlying prediabetes. The patient was seen by the adaptive physical educator. The patient was noticeably deconditioned. The patient was seen by physical therapy. The patient seemed to be not in a condition where she can take care of herself. Hence a clinical decision was made to discharge the patient to a detention facility for further rehabilitation before the patient can be discharged with self-care. The patient had a prolonged hospital course because of the need for ICU stay and the patient's slow progress in her clinical condition. At this time I would like to thank all the consultants for seeing the patient and providing clinical recommendations. Case discussed with Dr. Trejo. Home Meds Active Scripts Insulin Glargine* (Lantus*) 100 Unit/Ml Soln, 18 UNIT SC DAILY@08 for 7 Days Prov:NINA MAHONEY NP 05/05/17 Insulin Aspart* (Novolog Insulin Pen*) 100 Unit/Ml Soln, 0 UNIT SC WITH MEALS BEDTIME for 7 Days Prov:NINA MAHONEY NP 05/05/17 Prednisone* (Prednisone*) 20 Mg Tab, 60 MG PO DAILY for 2 Days, TAB Prov:NINA MAHONEY NP 05/05/17 Famotidine* (Famotidine*) 20 Mg Tablet, 20 MG PO DAILY for 7 Days, TAB Prov:NINA MAHONEY NP 05/05/17 Guaifenesin (Guaifenesin) 600 Mg Tablet.sa, 600 MG PO BID for 7 Days Prov:NINA MAHONEY NP 05/05/17 Lorazepam* (Ativan*) 0.5 Mg Tablet, 0.5 MG PO TID Y for ANXIETY for 7 Days, TAB Prov:NINA MAHONEY NP 05/05/17 Hydrocodone Bit-Acetaminophen (Hydrocodone Bit-APAP) 5-325MG Tablet, 1 TAB PO Q6H Y for MODERATE PAIN LEVEL 4-6 for 7 Days, TAB Prov:NINA MAHONEY NP 05/05/17 Ipratropium-Albuterol (Ipratropium-Albuterol) 0.5-3 Mg/3 Ml Ampul.neb, 3 ML HHN Q2H RESP THERAPY Y for SHORTNESS OF BREATH for 7 Days Prov:NINA MAHONEY NP 05/05/17 Ipratropium-Albuterol (Ipratropium-Albuterol) 0.5-3 Mg/3 Ml Ampul.neb, 3 ML HHN Q4H RESP THERAPY for 7 Days Prov:NINA MAHONEY NP 05/05/17 [Ipratropium 0.02% (Neb)] 0.5 MG/2.5 ML NEBU No Conflict Check, 0.5 MG HHN Q4H RESP THERAPY Y for SHORTNESS OF BREATH for 7 Days Prov:NINA MAHONEY STATOR WINDER 05/05/17 Reported Medications Trazodone Hcl* (Trazodone Hcl*) 100 Mg Tablet, 100 MG PO QHS, #30 TAB 04/25/17 Omeprazole* (Omeprazole*) 20 Mg Capsule.dr, 20 MG PO DAILY, #30 CAP 04/25/17 Montelukast Sodium* (Montelukast Sodium*) 10 Mg Tablet, 10 MG PO QHS, #30 TAB 04/25/17 Amitriptyline Hcl* (Amitriptyline Hcl*) 25 Mg Tablet, 75 MG PO QHS, #30 TAB 04/25/17 Lurasidone Hcl (LATUDA) 80 Mg Tablet, 80 MG PO DAILY, #30 TAB 04/25/17 Gabapentin* (Gabapentin*) 300 Mg Capsule, 600 MG PO BID, #180 CAP 04/25/17 Buspirone Hcl* (Buspirone Hcl*) 10 Mg Tab, 10 MG PO BID, TAB 11/26/16 Discontinued Reported Medications Hydroxyzine Pamoate* (Hydroxyzine Pamoate*) 25 Mg Capsule, 25 MG PO QHS Y for ANXIETY, #30 CAP 04/25/17 Discontinued Scripts Albuterol Sulfate* (Albuterol Sulfate* Neb) 0.083%-3 Ml Neb, 2.5 MG NEB Q4 Y for SHORTNESS OF BREATH, #30 EA Prov:JOSELITO CORTES 01/25/17 Albuterol Sulfate* (Proair HFA*) 8.5 Gm Hfa.aer.ad, 2 PUFF INH Q4, #1 INHALER 7 Refills Prov:JESSICA CROCKER. 11/29/16 Follow-up Plan The patient is being discharged to a detention facility where she has follow-up. Primary Care Provider Not On Staff Doctor Time spent on discharge: 40 mins. Pending Labs Laboratory Tests Test 05/04/17 19:58 05/05/17 06:53 05/05/17 08:01 05/05/17 11:50 Bedside Glucose 143mg/dL (70-220) 161mg/dL (70-220) 104mg/dL (70-220) White Blood Count 12.110^3/ul (4.8-10.8) Red Blood Count 4.7810^6/ul (4.20-5.40) Hemoglobin 14.8g/dl (12.0-16.0) Hematocrit 44.4% (37.0-47.0) Mean Corpuscular Volume 92.9fl (82.0-101.0) Mean Corpuscular Hemoglobin 31.0pg (29.0-33.0) Mean Corpuscular Hemoglobin Concent 33.3g/dl (32.0-37.0) Red Cell Distribution Width 12.6% (11.5-14.5) Platelet Count 99422^3/UL (140-415) Mean Platelet Volume 9.8fl (7.4-10.4) Neutrophils % 75.1% (39.0-77.0) Lymphocytes % 14.2% (15.0-51.0) Monocytes % 8.5% (0.0-11.0) Eosinophils % 0.0% (0.0-7.0) Basophils % 0.2% (0.0-2.0) Nucleated Red Blood Cells % 0.0/100WBC (0.0-0.0) Neutrophils # 9.110^3/ul (1.6-7.5) Lymphocytes # 1.710^3/ul (0.8-2.9) Monocytes # 1.010^3/ul (0.3-0.9) Eosinophils # 0.010^3/ul (0.0-0.5) Basophils # 0.010^3/ul (0.0-0.1) Nucleated Red Blood Cells # 0.010^3/ul (0.0-0.0) Sodium Level 140mmol/L (135-144) Potassium Level 4.2mmol/L (3.5-5.1) Chloride Level 95mmol/L (97-110) Carbon Dioxide Level 37mmol/L (21-31) Anion Gap 12 (8-16) Blood Urea Nitrogen 27mg/dl (7-20) Creatinine 0.91mg/dl (0.44-1.00) Glucose Level 117mg/dl (70-220) Calcium Level 9.1mg/dl (8.4-10.2) Test 05/05/17 17:02 Bedside Glucose 259mg/dL (70-220) NINA MAHONEY NP May 05, 2017 18:02
[2017-05-06] MEDS ORDERED: predniSONE 20 MG TAB PO SCH (09:00)
== END 2017-05-05 17:49 | DRG 202 ==
LOC: E/R 11:19 → MS4 13:33 → TEL 17:00 → ICU 04-26 17:48 → MS4 05-01 15:33
PROVIDERS: ADMIT Internal Medicine; ATTEND Internal Medicine
PROC: 5A09357 Assistance with Respiratory Ventilation, Less than 24 Consecutive Hours, Continuous Positive Airway Pressure (ICD-10-PCS; principal; 2017-04-26)
DX: J45.51 Severe persistent asthma with (acute) exacerbation (principal); J96.01 Acute respiratory failure with hypoxia; Z68.42 Body mass index [BMI] 45.0-49.9, adult; M79.7 Fibromyalgia; E66.01 Morbid (severe) obesity due to excess calories; J20.9 Acute bronchitis, unspecified; F99 Mental disorder, not otherwise specified; F17.200 Nicotine dependence, unspecified, uncomplicated; R73.03 Prediabetes
CPT/HCPCS: 36415; 36600; 71010; 80048; 80053; 80061; 80307; 81003; 82803; 82962; 83036; 83735; 83880; 84100; 84484; 84703; 85025; 85610; 85730; 87040; 87081; 87400; 93005; 93306; 94640; 94644; 94645; 94660; 94664; 94770; 96372; 96374; 96375; 97110; 97116; 97162; 97530; J0171; J0456; J1650; J1815; J1885; J1956; J2270; J2920; J2930; J3475